=== PATIENT | female | born 1950 | race Caucasian/White ===

== ENCOUNTER → 2016-06-30 | Outpatient (CLI) | payer MEDICARE, MEDICAID ==
[~2016-06-30] MED LIST: CELE20TA; CELE40TA OR; HYDR25TA6; HYDR25TA6 OR; KLON1TAB OR; TRAZ50TA OR; XANA0.5T
[2016-06-30 13:46] LABS: ALBUMIN 3.3 GM/DL (3.2-5.2); ALBUMIN/GLOBULIN RATIO 0.79 (1.00-1.93); BILIRUBIN,TOTAL 0.3 MG/DL (0.2-1.0); CALCIUM LEVEL 9.5 MG/DL (8.8-10.2); CREATININE FOR GFR 1.47 MG/DL (0.55-1.02); FREE T4 0.9 NG/DL (0.76-1.46); POTASSIUM SERUM 4.2 MEQ/L (3.5-5.1); TOTAL PROTEIN 7.5 GM/DL (6.4-8.2)
== END | disposition home or self-care (01) ==
LOC: M WUC 09:24
PROVIDERS: ATTEND Physician Assistant Medical
DX: E78.5 Hyperlipidemia, unspecified (principal); R31.29 Other microscopic hematuria

== ENCOUNTER → 2016-09-02 | Outpatient (CLI) | payer MEDICARE, MEDICAID ==
--- NOTE | 2016-09-02 15:14 | REP ---
Clinical: Left lower extremity pain and swelling . Technique: Humphreys scale and color Doppler evaluation using linear high frequency transducer. Findings: Ultrasound examination of the left lower extremity deep venous structures from the common femoral vein to the popliteal vein demonstrates normal compressibility flow and wave patterns in response to respiration and augmentation. There is no evidence for deep venous thrombosis. Impression: No evidence for deep venous thrombosis. Signed by Mo Mcmahon MD 09/02/2016 03:05 P
== END ==
LOC: M RAD 14:31
PROVIDERS: ATTEND Physician Assistant Medical
DX: R60.0 Localized edema (principal)
CPT/HCPCS: 83880; 85379; 93971; G0463

== ENCOUNTER → 2016-09-02 | Outpatient (REF) | payer MEDICARE, OTHER | LOC: M SFHCPLAZ 13:32 | PROVIDERS: ATTEND Physician Assistant Medical | DX: R60.0 Localized edema (principal); E03.9 Hypothyroidism, unspecified; Z79.899 Other long term (current) drug therapy ==

== ENCOUNTER → 2016-09-09 | Outpatient (CLI) | payer MEDICARE, MEDICAID ==
[2016-09-09 19:45] LABS: CALCIUM LEVEL 10.6 MG/DL (8.8-10.2); CREATININE FOR GFR 1.34 MG/DL (0.55-1.02); FREE T4 1.07 NG/DL (0.76-1.46); GLOMERULAR FILTRATION RATE 42.3 (>45); POTASSIUM SERUM 4.5 MEQ/L (3.5-5.1)
== END ==
LOC: M WUC 16:16
PROVIDERS: ATTEND Physician Assistant Medical
DX: N18.3 Chronic kidney disease, stage 3 (moderate) (principal); E03.9 Hypothyroidism, unspecified

== ENCOUNTER → 2016-09-23 | Outpatient (CLI) | payer MEDICARE, MEDICAID ==
[~2016-09-23] MED LIST changes: +ISOVUE-370 76% 100ML VIAL (Q9967) As Ordered ONE
--- NOTE | 2016-09-23 16:30 | REP ---
CT CHEST WITH CONTRAST: REASON: Followup pulmonary nodule. COMPARISON: 01/21/2016 which showed a 6 mm sized pulmonary nodule on the superior segment of the right lower lobe. CONTRAST UTILIZED: 100 mL Isovue-370. The mediastinum and pulmonary sheyla are unchanged. The thoracic aorta is unchanged. There are no pleural or pericardiac effusions. The imaged upper abdomen is unchanged. Note is again made of cholelithiasis. There is an aortic stent graft partially imaged unchanged. Bone window technique throughout the exam shows no change in the osseous structures. Evaluation of the lung ness shows an unchanged nodule in the superior segment of the right lower lobe. To me this nodule measures 8 mm as it did measure 8 mm by my measurement on the last exam. There are no new abnormal nodules, masses or opacities. IMPRESSION: Stable CT findings as described above. According to the revised Fleischner's society criteria this lesion can now be down characterized to a category 3 lesion which requires a one year followup CT. Other findings as described above. Signed by Hector Luu DO 09/24/2016 12:04 P
== END ==
LOC: M RAD 14:56
PROVIDERS: ATTEND Physician Assistant Medical
DX: R91.1 Solitary pulmonary nodule (principal)
CPT/HCPCS: 71260; Q9967

== ENCOUNTER → 2016-10-08 | Outpatient (CLI) | payer MEDICARE, MEDICAID ==
[~2016-10-08] MED LIST changes: -ISOVUE-370 76% 100ML VIAL (Q9967) As Ordered ONE
[2016-10-08 13:54] LABS: CALCIUM LEVEL 9.5 MG/DL (8.8-10.2); CREATININE FOR GFR 1.39 MG/DL (0.55-1.02); FREE T4 1.13 NG/DL (0.76-1.46); GLOMERULAR FILTRATION RATE 40.5 (>45)
== END ==
LOC: M WUC 08:25
PROVIDERS: ATTEND Physician Assistant Medical
DX: E03.9 Hypothyroidism, unspecified (principal); I12.9 Hypertensive chronic kidney disease with stage 1 through stage 4 chronic kidney disease, or unspecified chronic kidney disease; N18.3 Chronic kidney disease, stage 3 (moderate)

== ENCOUNTER → 2016-12-22 | Outpatient (CLI) | payer MEDICARE, MEDICAID, OTHER ==
[~2016-12-22] MED LIST changes: +ATEN25TA PO; +BUPR150T3 PO; +CELE40TA PO; +FENO48TA2 PO; +HYDR10TAB PO; +KLON1TAB PO; +PARO30TA PO; +PRAV40TA2 PO; +SERO50TA PO; +VITA100067 PO
--- NOTE | 2016-12-22 15:47 | REP ---
RIGHT HAND, FOUR VIEWS: HISTORY: Pain. There is no acute fracture or dislocation. There is narrowing of the first carpometacarpal joint space with associated osteophyte formation. Calcified densities are present medial to the distal interphalangeal joint space of the second digit. This represents ligamentous or tendon calcification. A small osteophyte is present along the medial aspect of the head of the proximal phalangeal of the third digit. IMPRESSION: Degenerative change as described above. Signed by Tobi Nichole MD 12/22/2016 03:49 P
== END ==
LOC: M WUC 13:59
PROVIDERS: ATTEND Physician Assistant Medical
DX: M19.041 Primary osteoarthritis, right hand (principal)

== ENCOUNTER 2017-01-09 17:45 | Emergency (ER) | payer MEDICARE, MEDICAID ==
[~2017-01-09] VITALS: Ht 167.6 cm; Wt 91.4 kg
[~2017-01-09 17:45] MED LIST changes: -ATEN25TA PO; -BUPR150T3 PO; -CELE40TA PO; -FENO48TA2 PO; -HYDR10TAB PO; -KLON1TAB PO; -PARO30TA PO; -PRAV40TA2 PO; -SERO50TA PO; -VITA100067 PO
[2017-01-09] MEDS ORDERED: VITA100067 PO (18:11)
[2017-01-09] MEDS ORDERED: HYDR10TAB PO (18:11)
[2017-01-09] MEDS ORDERED: KLON1TAB PO (18:11)
[2017-01-09] MEDS ORDERED: SERO50TA PO (18:11)
[2017-01-09] MEDS ORDERED: BUPR150T3 PO (18:11)
[2017-01-09] MEDS ORDERED: PRAV40TA2 PO (18:11)
[2017-01-09] MEDS ORDERED: FENO48TA2 PO (18:11)
[2017-01-09] MEDS ORDERED: CELE40TA PO (18:11)
[2017-01-09] MEDS ORDERED: ATEN25TA PO (18:11)
[2017-01-09] MEDS ORDERED: PARO30TA PO (18:11)
--- NOTE | 2017-01-09 20:40 | REPUSA ---
CLINICAL HISTORY: Fall. TECHNIQUE: Multiple axial CT images were obtained through the brain without IV contrast material. COMMENTS: There is normal configuration of sella turcica. There are no intra or extra-axial collections. There is no mass effect or midline shift. There is no evidence of hematoma formation. No hydrocephalus is p resent. The ventricles are symmetrical. No abnormal calcifications are present. There is diffuse age-appropriate cerebellar and cerebral atrophy with proportionally dilated ventricl es and cortical sulci. There are bilateral periventricular and subcortical white matter hypolucencies compatible with mild c hronic microvascular disease. Otherwise, no significant focal abnormalities are seen either in the posterior fossa or supratentoria l compartment. IMPRESSION: 1. Age-appropriate cerebellar and cerebral atrophy. 2. Mild chronic microvascular disease. 3. No evidence of acute intracranial pathology. Thank you for your kind referral of this patient.
--- NOTE | 2017-01-09 21:10 | REPUSA ---
CLINICAL HISTORY: Fall. TECHNIQUE: Multiple axial images were obtained through the cervical spine. Images were also reconstru cted in coronal and sagittal planes. The study was performed without IV contrast. COMMENTS: There is no fracture. Grade 1 anterolisthesis of C3 over C4 is seen. The paraspinal soft tissues are unremarkable. There are no lytic or blastic lesions. Straightening of cervical lordosis is seen, suggesting muscular spasm. There is evidence of severe mu ltilevel disk disease, demonstrated by osteophytosis and endplate sclerosis. At C5-C6 and C6-C7, th ere is broad-based disc osteophyte complex producing moderate to severe bilateral foraminal and canal stenosis IMPRESSION: 1. No fracture. Grade 1 anterolisthesis of C3 over C4 2. Straightening of cervical lordosis is seen, suggesting muscular spasm. 3. Multilevel spondylosis. At C5-C6 and C6-C7, there is broad-based disc osteophyte complex produci ng moderate to severe bilateral foraminal and canal stenosis Thank you for your kind referral of this patient.
--- NOTE | 2017-01-09 21:10 | REPUSA ---
HISTORY: Fall. TECHNIQUE: Multiple thin section helically-acquired axially-displayed and helically acquired coronall y displayed computed tomographic images of the face are obtained from the mandible through the fronta l sinuses, with images obtained at soft tissue and bone window. 2D reformatted images were performed. FINDINGS: Normal bony mineralization. No fractures. Degenerative changes are noted at both TM joints. Normal orbits. Normal, clear paranasal sinuses. Normal oral and nasal cavities. Normal infratemporal fossa and deep parapharyngeal spaces with normal muscles of mastication. Normal parotid and submandibular glands. IMPRESSION: No fracture or another acute pathology Thank you for your kind referral of this patient
[2017-01-09 21:37] VITALS: BP 161/81
--- NOTE | 2017-01-12 12:23 | ED PDOC ---
Post-Departure Follow-Up monique alexis faxed formal report of ct c spine for fu Erica Schulz MD Jan 12, 2017 12:23
== END 2017-01-09 21:44 | disposition home or self-care (01) ==
LOC: M ED 17:45
DX: S00.83XA Contusion of other part of head, initial encounter (principal); S00.31XA Abrasion of nose, initial encounter; W01.10XA Fall on same level from slipping, tripping and stumbling with subsequent striking against unspecified object, initial encounter; Y92.019 Unspecified place in single-family (private) house as the place of occurrence of the external cause; Y93.89 Activity, other specified; Y99.8 Other external cause status; M43.12 Spondylolisthesis, cervical region; M47.22 Other spondylosis with radiculopathy, cervical region; I12.9 Hypertensive chronic kidney disease with stage 1 through stage 4 chronic kidney disease, or unspecified chronic kidney disease; N18.3 Chronic kidney disease, stage 3 (moderate); E78.00 Pure hypercholesterolemia, unspecified; F17.200 Nicotine dependence, unspecified, uncomplicated; Z79.899 Other long term (current) drug therapy; Z88.0 Allergy status to penicillin; Z88.8 Allergy status to other drugs, medicaments and biological substances; Z91.040 Latex allergy status

== ENCOUNTER → 2017-02-17 | Outpatient (CLI) | payer MEDICARE, MEDICAID ==
[~2017-02-17] MED LIST changes: +ATEN25TA PO; +BUPR150T3 PO; +CELE40TA PO; +FENO48TA2 PO; +HYDR10TAB PO; +KLON1TAB PO; +PARO30TA PO; +PRAV40TA2 PO; +SERO50TA PO; +VITA100067 PO
[2017-02-17 18:10] LABS: ALBUMIN 3.5 GM/DL (3.2-5.2); ALBUMIN/GLOBULIN RATIO 0.9 (1.00-1.93); BILIRUBIN,TOTAL 0.3 MG/DL (0.2-1.0); CALCIUM LEVEL 10.3 MG/DL (8.8-10.2); CREATININE FOR GFR 1.3 MG/DL (0.55-1.02); GLOMERULAR FILTRATION RATE 43.8 (>45); POTASSIUM SERUM 4.8 MEQ/L (3.5-5.1); TOTAL PROTEIN 7.4 GM/DL (6.4-8.2)
[2017-02-17 18:57] LABS: BASO % 0.4 % (0.0-1.0); EOS # 0.1 K/mm3 (0.0-0.50); EOS % 2.2 % (0.0-3.0); LYMPH # 1.3 K/mm3 (1.5-4.5); LYMPH % 21.5 % (24.0-44.0); MEAN CORPUSCULAR HGB CONC 32.8 g/dl (32.0-36.5); MEAN CORPUSCULAR VOLUME 97.5 fl (80.0-96.0); MONO # 0.4 K/mm3 (0.0-0.8); MONO % 7.1 % (0.0-5.0); NEUTROPHILS # 3.8 K/mm3 (1.8-7.7); NEUTROPHILS % 67.2 % (36.0-66.0); RED CELL DISTRIBUTION WIDTH 12.9 % (11.5-14.5); WHITE BLOOD COUNT 5.7 K/mm3 (4.0-10.0)
== END ==
LOC: M WUC 12:34
PROVIDERS: ATTEND Physician Assistant
DX: F33.1 Major depressive disorder, recurrent, moderate (principal); Z79.899 Other long term (current) drug therapy

== ENCOUNTER → 2017-02-22 | Outpatient (CLI) | payer MEDICARE ==
[2017-02-22 17:38] LABS: BASO % 0.5 % (0.0-1.0); EOS # 0.1 K/mm3 (0.0-0.50); EOS % 1.7 % (0.0-3.0); LARGE UNSTAINED CELL # 0.1 K/mm3 (0.0-0.4); LARGE UNSTAINED CELL % 1.3 % (0.0-4.0); LYMPH # 1.6 K/mm3 (1.5-4.5); LYMPH % 22.7 % (24.0-44.0); MEAN CORPUSCULAR HEMOGLOBIN 32.3 pg (27.0-33.0); MEAN CORPUSCULAR HGB CONC 33.7 g/dl (32.0-36.5); MEAN CORPUSCULAR VOLUME 95.6 fl (80.0-96.0); MONO # 0.6 K/mm3 (0.0-0.8); MONO % 7.7 % (0.0-5.0); NEUTROPHILS # 4.8 K/mm3 (1.8-7.7); PLATELET COUNT, AUTOMATED 335 k/mm3 (150-450); RED CELL DISTRIBUTION WIDTH 12.6 % (11.5-14.5); WHITE BLOOD COUNT 7.2 K/mm3 (4.0-10.0)
[2017-02-22 17:44] LABS: INR 0.88
[2017-02-22 19:23] LABS: ALBUMIN 3.5 GM/DL (3.2-5.2); ALBUMIN/GLOBULIN RATIO 0.92 (1.00-1.93); BILIRUBIN,TOTAL 0.3 MG/DL (0.2-1.0); CALCIUM LEVEL 10.3 MG/DL (8.8-10.2); CREATININE FOR GFR 1.32 MG/DL (0.55-1.02); FREE T4 0.9 NG/DL (0.76-1.46); TOTAL PROTEIN 7.3 GM/DL (6.4-8.2)
== END ==
LOC: M WUC 14:36
PROVIDERS: ATTEND Physician Assistant Medical
DX: I12.9 Hypertensive chronic kidney disease with stage 1 through stage 4 chronic kidney disease, or unspecified chronic kidney disease (principal); N18.3 Chronic kidney disease, stage 3 (moderate); E03.9 Hypothyroidism, unspecified; T14.8 Other injury of unspecified body region

== ENCOUNTER → 2017-02-24 | Outpatient (CLI) | payer MEDICARE, MEDICAID ==
--- NOTE | 2017-02-24 16:01 | REP ---
Lumbar spine five views: There are no comparisons. Vertebral body heights, interspacing alignment are normal. There is facet osteoarthritis. The pedicles are unremarkable. There is no spondylolysis or spondylolisthesis. Sacroiliac articulations are unremarkable. There is an aortobi-iliac endovascular stent. Impression: Facet osteoarthritis. Aortobi-iliac endovascular stent. Signed by Anuj Flowers MD 02/24/2017 03:52 P
== END ==
LOC: M WUC 14:45
PROVIDERS: ATTEND Physician Assistant Medical
DX: M51.36 Other intervertebral disc degeneration, lumbar region (principal); Z95.828 Presence of other vascular implants and grafts
CPT/HCPCS: 72110; G0463

== ENCOUNTER → 2017-03-03 | Outpatient (CLI) | payer MEDICARE, MEDICAID ==
--- NOTE | 2017-03-04 08:56 | DEXA ---
AP SPINE L1 - L4 1.220 0.2 1.8 LT FEMUR TOTAL 1.063 0.4 1.7 RT FEMUR TOTAL 1.106 0.8 2.0 TOTAL BODY TOTAL OTHER DUAL FEMUR FRAX* ASSESSMENT Risk factors: Not performed. 10 year probability of fracture Major osteoporotic fracture % Hip fracture % COMMENTS: Normal bone densitometry of the spine and hips. FOLLOW-UP: Recommendation for the next bone density exam: 5 years. SHELLYD
== END ==
LOC: M WHC 10:51
PROVIDERS: ATTEND Physician Assistant Medical
DX: Z13.820 Encounter for screening for osteoporosis (principal)

== ENCOUNTER → 2017-04-10 | Outpatient (REF) | payer MEDICARE, MEDICAID ==
[2017-04-10 17:44] LABS: CALCIUM LEVEL 10.1 MG/DL (8.8-10.2); CREATININE FOR GFR 1.33 MG/DL (0.55-1.02); GLOMERULAR FILTRATION RATE 42.5 (>45); POTASSIUM SERUM 4.4 MEQ/L (3.5-5.1)
== END ==
LOC: M SFHCPLAZ 15:11
PROVIDERS: ATTEND Physician Assistant Medical
DX: N18.3 Chronic kidney disease, stage 3 (moderate) (principal); Z23 Encounter for immunization
CPT/HCPCS: 36415; 80048; 90662; G0008

== ENCOUNTER → 2017-05-20 | Outpatient (CLI) | payer MEDICARE, MEDICAID ==
--- NOTE | 2017-05-20 09:45 | REP ---
Abdominal aorta ultrasound for aneurysm: Abdominal aorta ultrasound: Abdominal Aortic Measurements are as follows: Proximal 2.6 cm AP 2.8 cm TRV Renal Artery Level 2.6 cm AP 2.5 cm TRV Mid Aorta 4.6 cm AP 3.6 cm TRV Distal Aorta 4.3 cm AP 4.2 cm TRV R Iliac Artery 1.2 cm AP 1.3 cm TRV L Iliac Artery 1.1 cm AP 1.3 cm TRV There is abdominal aortic aneurysm maximally measuring 4.6 cm in diameter. There is an endovascular stent. The stent lumen measures 2.1 x 2.3 cm Upon review of a CT of the abdomen pelvis day 06/16/2013. The aneurysm was present at that time. Re measuring the aneurysm on the CT indicates that the aneurysm measured 5.0 x 5.2 cm on the comparison CT. I note that the the patient had a CT on 05/19/2016, however the films and report from that CT are not available on the PACS archive, for reasons known to this examiner. Signed by Anuj Flowers MD 05/20/2017 09:36 A
== END ==
LOC: M RAD 08:17
PROVIDERS: ATTEND Surgery
DX: I71.4 Abdominal aortic aneurysm, without rupture (principal)

== ENCOUNTER 2017-06-09 18:01 | Inpatient (IN) | payer MEDICARE, MEDICAID ==
[2017-06-09 19:16] LABS: HEMOGLOBIN 14.9 g/dl (12.0-16.0); MEAN CORPUSCULAR HEMOGLOBIN 30.9 pg (27.0-33.0); MEAN CORPUSCULAR HGB CONC 33.1 g/dl (32.0-36.5); MEAN CORPUSCULAR VOLUME 93.4 fl (80.0-96.0); PLATELET COUNT, AUTOMATED 423 10^3/uL (150-450); RED BLOOD COUNT 4.82 10^6/uL (4.00-5.40); RED CELL DISTRIBUTION WIDTH 12.7 % (11.5-14.5); WHITE BLOOD COUNT 7.9 10^3/uL (4.0-10.0)
[2017-06-09 19:36] LABS: ALBUMIN 4.2 GM/DL (3.2-5.2); ALBUMIN/GLOBULIN RATIO 0.93 (1.00-1.93); ALKALINE PHOSPHATASE 51 U/L (45-117); ALT/SGPT 27 U/L (12-78); ANION GAP 7 MEQ/L (8-16); AST/SGOT 26 U/L (7-37); BILIRUBIN,DIRECT 0.2 MG/DL (0.0-0.2); BILIRUBIN,TOTAL 0.4 MG/DL (0.2-1.0); BLOOD UREA NITROGEN 27 MG/DL (7-18); CALCIUM LEVEL 10.4 MG/DL (8.8-10.2); CARBON DIOXIDE LEVEL 29 MEQ/L (21-32); CHLORIDE LEVEL 102 MEQ/L (98-107); CREATININE FOR GFR 1.53 MG/DL (0.55-1.02); GLOMERULAR FILTRATION RATE 36.2 (>45); GLUCOSE, FASTING 104 MG/DL (80-110); POTASSIUM SERUM 4.6 MEQ/L (3.5-5.1); SODIUM LEVEL 138 MEQ/L (136-145); TOTAL PROTEIN 8.7 GM/DL (6.4-8.2)
[2017-06-09 19:55] LABS: AMPHETAMINES LEVEL URINE NEGATIVE (NEGATIVE); BARBITURATES URINE NEGATIVE (NEGATIVE); BENZODIAZEPINES URINE POSITIVE (NEGATIVE); CANNABINOIDS URINE NEGATIVE (NEGATIVE); COCAINE METABOLITE URINE NEGATIVE (NEGATIVE); METHADONE URINE NEGATIVE (NEGATIVE); OPIATES URINE NEGATIVE (NEGATIVE); PHENCYCLIDINE URINE NEGATIVE (NEGATIVE)
[2017-06-09 20:25] LABS: ETHYL ALCOHOL (ETHANOL) < 0.003 % (0.000-0.010)
[2017-06-09 20:26] LABS: ACETAMINOPHEN LEVEL < 2.0 UG/ML (10.0-30.0)
[2017-06-09] MEDS: **hydrALAZINE** 10 MG TAB PO (21:00)
[2017-06-09] MEDS: QUEtiapine FUMARATE 200 MG TAB PO (21:00)
[2017-06-09] MEDS: PRAVASTATIN 20 MG TAB PO (21:00)
[2017-06-09] MEDS: FENOFIBRATE 145 MG TAB (TRICOR) PO (21:00)
[2017-06-10] MEDS ORDERED: clonazePAM 0.5 MG TAB PO (00:15)
[2017-06-10] MEDS: LEVOTHYROXINE 25MCG TABLET (0.025MG) PO (06:29)
[2017-06-10] MEDS: ACETAMINOPHEN TAB 650MG DOSE (2X325MG) PO (06:30)
[2017-06-10] MEDS: buPROPion **XL** TABLET 150MG (WELLBUTRIN XL) PO (08:31)
[2017-06-10] MEDS: LISINOPRIL 5 MG TAB PO (08:31)
[2017-06-10] MEDS: SERTRALINE HCL 50 MG TAB PO (08:31)
[2017-06-10] MEDS: ATENOLOL 25 MG TAB PO (08:31)
[2017-06-10] MEDS: **hydrALAZINE** 10 MG TAB PO ×2 (08:31→21:11)
[2017-06-10] MEDS: FENOFIBRATE 145 MG TAB (TRICOR) PO (21:10)
[2017-06-10] MEDS: QUEtiapine FUMARATE 200 MG TAB PO (21:11)
[2017-06-10] MEDS: PRAVASTATIN 20 MG TAB PO (21:11)
[2017-06-11] MEDS: LEVOTHYROXINE 25MCG TABLET (0.025MG) PO (06:04)
[2017-06-11] MEDS: ATENOLOL 25 MG TAB PO (08:39)
[2017-06-11] MEDS: buPROPion **XL** TABLET 150MG (WELLBUTRIN XL) PO (08:39)
[2017-06-11] MEDS: **hydrALAZINE** 10 MG TAB PO ×2 (08:39→21:32)
[2017-06-11] MEDS: LISINOPRIL 5 MG TAB PO (08:40)
[2017-06-11] MEDS: SERTRALINE HCL 50 MG TAB PO ×2 (08:40→21:32)
[2017-06-11 09:13] LABS: ANION GAP 5 MEQ/L (8-16); BLOOD UREA NITROGEN 38 MG/DL (7-18); CALCIUM LEVEL 10.4 MG/DL (8.8-10.2); CARBON DIOXIDE LEVEL 31 MEQ/L (21-32); CHLORIDE LEVEL 105 MEQ/L (98-107); CREATININE FOR GFR 1.52 MG/DL (0.55-1.02); GLOMERULAR FILTRATION RATE 36.4 (>45); GLUCOSE, FASTING 127 MG/DL (80-110); POTASSIUM SERUM 4.5 MEQ/L (3.5-5.1); SODIUM LEVEL 141 MEQ/L (136-145)
[2017-06-11] MEDS: FENOFIBRATE 145 MG TAB (TRICOR) PO (21:31)
[2017-06-11] MEDS: QUEtiapine FUMARATE 200 MG TAB PO (21:32)
[2017-06-11] MEDS: PRAVASTATIN 20 MG TAB PO (21:32)
[2017-06-12] MEDS: LEVOTHYROXINE 25MCG TABLET (0.025MG) PO (06:08)
[2017-06-12] MEDS: **hydrALAZINE** 10 MG TAB PO ×2 (08:16→21:05)
[2017-06-12] MEDS: buPROPion **XL** TABLET 150MG (WELLBUTRIN XL) PO (08:17)
[2017-06-12] MEDS: ATENOLOL 25 MG TAB PO (08:17)
[2017-06-12] MEDS: LISINOPRIL 5 MG TAB PO (08:17)
[2017-06-12] MEDS: MOM 30ML SUSPENSION UDC PO (08:49)
[2017-06-12] MEDS: QUEtiapine FUMARATE 200 MG TAB PO (21:05)
[2017-06-12] MEDS: PRAVASTATIN 20 MG TAB PO (21:05)
[2017-06-12] MEDS: FENOFIBRATE 145 MG TAB (TRICOR) PO (21:05)
[2017-06-12] MEDS: SERTRALINE HCL 50 MG TAB PO (21:06)
[2017-06-12] MEDS: ACETAMINOPHEN TAB 650MG DOSE (2X325MG) PO (21:07)
[2017-06-12] MEDS: FLUTICASONE PROP 0.05% NASAL SPRAY 16 GM (FLONASE) (21:15)
[2017-06-13] MEDS: LEVOTHYROXINE 25MCG TABLET (0.025MG) PO (05:54)
[2017-06-13] MEDS: LISINOPRIL 5 MG TAB PO (08:06)
[2017-06-13] MEDS: buPROPion **XL** TABLET 150MG (WELLBUTRIN XL) PO (08:06)
[2017-06-13] MEDS: ATENOLOL 25 MG TAB PO (08:06)
[2017-06-13] MEDS: **hydrALAZINE** 10 MG TAB PO ×2 (08:07→20:58)
[2017-06-13] MEDS: MAALOX 30 ML SUSP *UDC PO (15:58)
[2017-06-13] MEDS: SERTRALINE HCL 50 MG TAB PO (20:58)
[2017-06-13] MEDS: FLUTICASONE PROP 0.05% NASAL SPRAY 16 GM (FLONASE) (20:58)
[2017-06-13] MEDS: FENOFIBRATE 145 MG TAB (TRICOR) PO (20:59)
[2017-06-13] MEDS: PRAVASTATIN 20 MG TAB PO (20:59)
[2017-06-13] MEDS: QUEtiapine FUMARATE 50 MG TAB PO (20:59)
[2017-06-13] MEDS: ACETAMINOPHEN TAB 650MG DOSE (2X325MG) PO (21:02)
[2017-06-14] MEDS: LEVOTHYROXINE 25MCG TABLET (0.025MG) PO (05:46)
[2017-06-14] MEDS: ATENOLOL 25 MG TAB PO (08:09)
[2017-06-14] MEDS: buPROPion **XL** TABLET 150MG (WELLBUTRIN XL) PO (08:09)
[2017-06-14] MEDS: LISINOPRIL 5 MG TAB PO (08:10)
[2017-06-14] MEDS: **hydrALAZINE** 10 MG TAB PO ×2 (08:11→20:26)
[2017-06-14] MEDS: FENOFIBRATE 145 MG TAB (TRICOR) PO (20:25)
[2017-06-14] MEDS: PRAVASTATIN 20 MG TAB PO (20:26)
[2017-06-14] MEDS: SERTRALINE HCL 50 MG TAB PO (20:26)
[2017-06-14] MEDS: QUEtiapine FUMARATE 50 MG TAB PO (20:27)
[2017-06-14] MEDS: traZODone 50 MG TAB PO (20:27)
[2017-06-15] MEDS: LEVOTHYROXINE 25MCG TABLET (0.025MG) PO (06:10)
[2017-06-15] MEDS: clonazePAM 0.5 MG TAB PO (08:09)
[2017-06-15] MEDS: ATENOLOL 25 MG TAB PO (08:09)
[2017-06-15] MEDS: LISINOPRIL 5 MG TAB PO (08:09)
[2017-06-15] MEDS: buPROPion **XL** TABLET 150MG (WELLBUTRIN XL) PO (08:09)
[2017-06-15] MEDS: **hydrALAZINE** 10 MG TAB PO ×2 (08:09→20:22)
[2017-06-15] MEDS: SERTRALINE HCL 50 MG TAB PO (20:19)
[2017-06-15] MEDS: QUEtiapine FUMARATE 50 MG TAB PO (20:19)
[2017-06-15] MEDS: FENOFIBRATE 145 MG TAB (TRICOR) PO (20:20)
[2017-06-15] MEDS: PRAVASTATIN 20 MG TAB PO (20:20)
[2017-06-16] MEDS: LEVOTHYROXINE 25MCG TABLET (0.025MG) PO (06:17)
[2017-06-16] MEDS: buPROPion **XL** TABLET 150MG (WELLBUTRIN XL) PO (08:03)
[2017-06-16] MEDS: LISINOPRIL 5 MG TAB PO (08:03)
[2017-06-16] MEDS: **hydrALAZINE** 10 MG TAB PO ×2 (08:03→20:38)
[2017-06-16] MEDS: ATENOLOL 25 MG TAB PO (08:03)
[2017-06-16] MEDS: clonazePAM 0.5 MG TAB PO ×2 (11:32→20:37)
[2017-06-16] MEDS: FENOFIBRATE 145 MG TAB (TRICOR) PO (20:37)
[2017-06-16] MEDS: SERTRALINE HCL 50 MG TAB PO (20:37)
[2017-06-16] MEDS: QUEtiapine FUMARATE 50 MG TAB PO (20:37)
[2017-06-16] MEDS: traZODone 50 MG TAB PO (20:37)
[2017-06-16] MEDS: PRAVASTATIN 20 MG TAB PO (20:38)
[2017-06-17] MEDS: LEVOTHYROXINE 25MCG TABLET (0.025MG) PO (06:34)
[2017-06-17] MEDS: buPROPion **XL** TABLET 150MG (WELLBUTRIN XL) PO (08:17)
[2017-06-17] MEDS: LISINOPRIL 5 MG TAB PO (08:17)
[2017-06-17] MEDS: **hydrALAZINE** 10 MG TAB PO ×2 (08:17→20:34)
[2017-06-17] MEDS: clonazePAM 0.5 MG TAB PO ×2 (08:17→20:33)
[2017-06-17] MEDS: ATENOLOL 25 MG TAB PO (08:17)
[2017-06-17] MEDS: traZODone 50 MG TAB PO (20:33)
[2017-06-17] MEDS: PRAVASTATIN 20 MG TAB PO (20:33)
[2017-06-17] MEDS: FENOFIBRATE 145 MG TAB (TRICOR) PO (20:33)
[2017-06-17] MEDS: SERTRALINE HCL 50 MG TAB PO (20:33)
[2017-06-17] MEDS: QUEtiapine FUMARATE 50 MG TAB PO (20:34)
[2017-06-18] MEDS: LEVOTHYROXINE 25MCG TABLET (0.025MG) PO (05:48)
[2017-06-18] MEDS: buPROPion **XL** TABLET 150MG (WELLBUTRIN XL) PO (08:25)
[2017-06-18] MEDS: clonazePAM 0.5 MG TAB PO (08:26)
[2017-06-18] MEDS: LISINOPRIL 5 MG TAB PO (08:26)
[2017-06-18] MEDS: **hydrALAZINE** 10 MG TAB PO (08:26)
[2017-06-18] MEDS: ATENOLOL 25 MG TAB PO (08:26)
== END 2017-06-18 11:46 | disposition home or self-care (01) | DRG 881 ==
LOC: M ED 18:01 → M PSY 22:00
DX: F32.9 Major depressive disorder, single episode, unspecified (principal); F41.1 Generalized anxiety disorder; I12.9 Hypertensive chronic kidney disease with stage 1 through stage 4 chronic kidney disease, or unspecified chronic kidney disease; E78.5 Hyperlipidemia, unspecified; G47.00 Insomnia, unspecified; J30.9 Allergic rhinitis, unspecified; E03.9 Hypothyroidism, unspecified; N18.3 Chronic kidney disease, stage 3 (moderate); Z79.899 Other long term (current) drug therapy; Z88.0 Allergy status to penicillin; Z88.8 Allergy status to other drugs, medicaments and biological substances; Z91.040 Latex allergy status; Z63.4 Disappearance and death of family member

== ENCOUNTER → 2017-06-25 | Outpatient (REF) | payer MEDICARE, MEDICAID ==
[2017-06-25 16:43] LABS: ALBUMIN 3.8 GM/DL (3.2-5.2); ALBUMIN/GLOBULIN RATIO 0.95 (1.00-1.93); ALKALINE PHOSPHATASE 47 U/L (45-117); ALT/SGPT 26 U/L (12-78); ANION GAP 6 MEQ/L (8-16); AST/SGOT 26 U/L (7-37); BILIRUBIN,TOTAL 0.3 MG/DL (0.2-1.0); BLOOD UREA NITROGEN 20 MG/DL (7-18); CALCIUM LEVEL 10.1 MG/DL (8.8-10.2); CARBON DIOXIDE LEVEL 29 MEQ/L (21-32); CHLORIDE LEVEL 105 MEQ/L (98-107); CHOLESTEROL LEVEL 174 MG/DL (<200); CHOLESTEROL RISK RATIO 3.346 (<5); CPK CREATINE PHOSPHOKINASE 78 U/L (26-192); CREATININE FOR GFR 1.42 MG/DL (0.55-1.02); FREE T4 1.12 NG/DL (0.76-1.46); GLOMERULAR FILTRATION RATE 39.4 (>45); GLUCOSE, FASTING 81 MG/DL (80-110); HDL CHOLESTEROL 52 MG/DL (>40); LDL CHOLESTEROL 100.8 MG/DL (<100); NON-HDL-C 122 MG/DL; POTASSIUM SERUM 4.6 MEQ/L (3.5-5.1); SODIUM LEVEL 140 MEQ/L (136-145); TOTAL PROTEIN 7.8 GM/DL (6.4-8.2); TRIGLYCERIDES LEVEL 106 MG/DL (<150)
[2017-06-25 17:00] LABS: BASO % 0.5 % (0.0-1.0); EOS # 0.2 10^3/uL (0.0-0.50); EOS % 2.1 % (0.0-3.0); HEMATOCRIT 40.6 % (36.0-47.0); HEMOGLOBIN 13.2 g/dl (12.0-16.0); IMMATURE GRANULOCYTE % 0.3 % (0-0); LYMPH # 1.8 10^3/uL (1.5-4.5); LYMPH % 23.6 % (24.0-44.0); MEAN CORPUSCULAR HGB CONC 32.5 g/dl (32.0-36.5); MEAN CORPUSCULAR VOLUME 95.3 fl (80.0-96.0); MONO # 0.7 10^3/uL (0.0-0.8); MONO % 9.1 % (0.0-5.0); NEUTROPHILS % 64.4 % (36.0-66.0); PLATELET COUNT, AUTOMATED 336 10^3/uL (150-450); RED BLOOD COUNT 4.26 10^6/uL (4.00-5.40); RED CELL DISTRIBUTION WIDTH 12.7 % (11.5-14.5); WHITE BLOOD COUNT 7.7 10^3/uL (4.0-10.0)
== END ==
LOC: M SFHCPLAZ 14:06
DX: I10 Essential (primary) hypertension (principal); E78.5 Hyperlipidemia, unspecified; E03.9 Hypothyroidism, unspecified
CPT/HCPCS: 82550

== ENCOUNTER → 2017-08-13 | Outpatient (CLI) | payer MEDICARE, MEDICAID | LOC: M WUC 15:06 | DX: M25.511 Pain in right shoulder (principal) | CPT/HCPCS: 73000 ==

== ENCOUNTER → 2017-09-07 | Outpatient (CLI) | payer MEDICARE, MEDICAID ==
[2017-09-07 18:27] LABS: PROLACTIN 6.5 NG/ML
[2017-09-07 18:36] LABS: ESTIMATED AVERAGE GLUCOSE 108 MG/DL (60-110); HEMOGLOBIN A1c 5.4 %
[2017-09-07 18:39] LABS: BASO % 0.7 % (0.0-1.0); EOS # 0.2 10^3/uL (0.0-0.50); EOS % 2.8 % (0.0-3.0); HEMATOCRIT 40.9 % (36.0-47.0); IMMATURE GRANULOCYTE % 0.2 % (0-3.0); LYMPH # 1.1 10^3/uL (1.5-4.5); LYMPH % 19.6 % (24.0-44.0); MEAN CORPUSCULAR HEMOGLOBIN 29.4 pg (27.0-33.0); MEAN CORPUSCULAR HGB CONC 31.8 g/dl (32.0-36.5); MEAN CORPUSCULAR VOLUME 92.5 fl (80.0-96.0); MONO # 0.6 10^3/uL (0.0-0.8); MONO % 9.7 % (0.0-5.0); NEUTROPHILS # 3.9 10^3/uL (1.8-7.7); PLATELET COUNT, AUTOMATED 376 10^3/uL (150-450); RED BLOOD COUNT 4.42 10^6/uL (4.00-5.40); RED CELL DISTRIBUTION WIDTH 12.4 % (11.5-14.5); WHITE BLOOD COUNT 5.8 10^3/uL (4.0-10.0)
[2017-09-07 18:49] LABS: ALBUMIN 3.7 GM/DL (3.2-5.2); ALKALINE PHOSPHATASE 42 U/L (45-117); ALT/SGPT 22 U/L (12-78); ANION GAP 6 MEQ/L (8-16); AST/SGOT 22 U/L (7-37); BILIRUBIN,TOTAL 0.3 MG/DL (0.2-1.0); BLOOD UREA NITROGEN 23 MG/DL (7-18); CALCIUM LEVEL 10.7 MG/DL (8.8-10.2); CARBON DIOXIDE LEVEL 30 MEQ/L (21-32); CHLORIDE LEVEL 105 MEQ/L (98-107); CHOLESTEROL LEVEL 197 MG/DL (<200); CREATININE FOR GFR 1.61 MG/DL (0.55-1.30); GLOMERULAR FILTRATION RATE 34.1 (>45); GLUCOSE, FASTING 91 MG/DL (70-100); HDL CHOLESTEROL 49 MG/DL (>40); NON-HDL-C 148 MG/DL; POTASSIUM SERUM 5.1 MEQ/L (3.5-5.1); SODIUM LEVEL 141 MEQ/L (136-145); TOTAL PROTEIN 7.8 GM/DL (6.4-8.2); TRIGLYCERIDES LEVEL 145 MG/DL (<150)
== END ==
LOC: M WUC 11:16
DX: F33.1 Major depressive disorder, recurrent, moderate (principal)
CPT/HCPCS: 84146

== ENCOUNTER 2017-10-29 12:41 | Emergency (ER) | payer OTHER, MEDICARE, MEDICAID ==
[2017-10-29] MEDS: ACETAMINOPHEN 325 MG TAB PO (14:13)
[2017-10-29] MEDS: NS 1,000 ML IV (17:07)
[2017-10-29 17:27] LABS: BASO % 0.5 % (0.0-1.0); EOS # 0.2 10^3/uL (0.0-0.50); EOS % 2.4 % (0.0-3.0); HEMOGLOBIN 13.5 g/dl (12.0-15.5); IMMATURE GRANULOCYTE % 0.3 % (0-3.0); LYMPH # 1.7 10^3/uL (1.5-4.5); LYMPH % 22.5 % (24.0-44.0); MEAN CORPUSCULAR HEMOGLOBIN 29.1 pg (27.0-33.0); MEAN CORPUSCULAR HGB CONC 32.1 g/dl (32.0-36.5); MEAN CORPUSCULAR VOLUME 90.5 fl (80.0-96.0); MONO # 0.5 10^3/uL (0.0-0.8); NEUTROPHILS % 67.3 % (36.0-66.0); PLATELET COUNT, AUTOMATED 393 10^3/uL (150-450); RED BLOOD COUNT 4.64 10^6/uL (4.00-5.40); RED CELL DISTRIBUTION WIDTH 12.5 % (11.5-14.5); WHITE BLOOD COUNT 7.4 10^3/uL (4.0-10.0)
[2017-10-29 17:38] LABS: INR 0.96; PARTIAL THROMBOPLASTIN TIME 27.8 SECONDS (26.8-37.9); PROTHROMBIN TIME 12.9 SECONDS (12.4-14.5)
[2017-10-29 17:42] LABS: ANION GAP 5 MEQ/L (8-16); BLOOD UREA NITROGEN 37 MG/DL (7-18); CALCIUM LEVEL 10.9 MG/DL (8.8-10.2); CARBON DIOXIDE LEVEL 30 MEQ/L (21-32); CHLORIDE LEVEL 102 MEQ/L (98-107); CREATININE FOR GFR 1.82 MG/DL (0.55-1.30); GLOMERULAR FILTRATION RATE 29.6 (>45); GLUCOSE, FASTING 88 MG/DL (70-100); SODIUM LEVEL 137 MEQ/L (136-145)
[2017-10-29 17:50] LABS: POTASSIUM SERUM 5.5 MEQ/L (3.5-5.1)
== END 2017-10-29 19:44 | disposition home or self-care (01) ==
LOC: M ED 12:41
DX: S20.219A Contusion of unspecified front wall of thorax, initial encounter (principal); R91.1 Solitary pulmonary nodule; V47.5XXA Car driver injured in collision with fixed or stationary object in traffic accident, initial encounter; Y92.410 Unspecified street and highway as the place of occurrence of the external cause; I12.9 Hypertensive chronic kidney disease with stage 1 through stage 4 chronic kidney disease, or unspecified chronic kidney disease; E78.00 Pure hypercholesterolemia, unspecified; N18.3 Chronic kidney disease, stage 3 (moderate); E03.9 Hypothyroidism, unspecified; F41.9 Anxiety disorder, unspecified; F32.9 Major depressive disorder, single episode, unspecified; F17.200 Nicotine dependence, unspecified, uncomplicated; Z88.0 Allergy status to penicillin; Z88.8 Allergy status to other drugs, medicaments and biological substances; Z91.040 Latex allergy status; Z79.899 Other long term (current) drug therapy
CPT/HCPCS: 71120

== ENCOUNTER → 2017-11-16 | Outpatient (REF) | payer MEDICARE, MEDICAID ==
[2017-11-16 14:11] LABS: ALBUMIN 3.7 GM/DL (3.2-5.2); ALBUMIN/GLOBULIN RATIO 0.97 (1.00-1.93); ALKALINE PHOSPHATASE 42 U/L (45-117); ALT/SGPT 25 U/L (12-78); ANION GAP 6 MEQ/L (8-16); AST/SGOT 20 U/L (7-37); BILIRUBIN,TOTAL 0.3 MG/DL (0.2-1.0); BLOOD UREA NITROGEN 35 MG/DL (7-18); CALCIUM LEVEL 10.1 MG/DL (8.8-10.2); CARBON DIOXIDE LEVEL 29 MEQ/L (21-32); CHLORIDE LEVEL 106 MEQ/L (98-107); CREATININE FOR GFR 1.72 MG/DL (0.55-1.30); GLOMERULAR FILTRATION RATE 31.6 (>45); GLUCOSE, FASTING 95 MG/DL (70-100); POTASSIUM SERUM 4.6 MEQ/L (3.5-5.1); SODIUM LEVEL 141 MEQ/L (136-145); TOTAL PROTEIN 7.5 GM/DL (6.4-8.2)
== END ==
LOC: M SFHCPLAZ 10:47
DX: N18.3 Chronic kidney disease, stage 3 (moderate) (principal)
CPT/HCPCS: 80053

== ENCOUNTER → 2018-01-20 | Outpatient (REF) | payer MEDICARE, MEDICAID ==
[2018-01-20 16:52] LABS: BASO % 0.4 % (0.0-1.0); EOS # 0.1 10^3/uL (0.0-0.50); EOS % 1.5 % (0.0-3.0); HEMATOCRIT 42.2 % (36.0-47.0); HEMOGLOBIN 13.7 g/dl (12.0-15.5); IMMATURE GRANULOCYTE % 0.3 % (0-3.0); LYMPH # 1.7 10^3/uL (1.5-4.5); LYMPH % 22.4 % (24.0-44.0); MEAN CORPUSCULAR HEMOGLOBIN 28.4 pg (27.0-33.0); MEAN CORPUSCULAR HGB CONC 32.5 g/dl (32.0-36.5); MEAN CORPUSCULAR VOLUME 87.4 fl (80.0-96.0); MONO # 0.6 10^3/uL (0.0-0.8); MONO % 8.4 % (0.0-5.0); NEUTROPHILS # 5.1 10^3/uL (1.8-7.7); PLATELET COUNT, AUTOMATED 423 10^3/uL (150-450); RED BLOOD COUNT 4.83 10^6/uL (4.00-5.40); WHITE BLOOD COUNT 7.6 10^3/uL (4.0-10.0)
[2018-01-20 16:59] LABS: ESTIMATED AVERAGE GLUCOSE 114 MG/DL (60-110); HEMOGLOBIN A1c 5.6 %
[2018-01-20 19:23] LABS: ALBUMIN 4.1 GM/DL (3.2-5.2); ALBUMIN/GLOBULIN RATIO 0.89 (1.00-1.93); ALKALINE PHOSPHATASE 56 U/L (45-117); ALT/SGPT 25 U/L (12-78); ANION GAP 8 MEQ/L (8-16); AST/SGOT 24 U/L (7-37); BILIRUBIN,TOTAL 0.4 MG/DL (0.2-1.0); BLOOD UREA NITROGEN 30 MG/DL (7-18); CALCIUM LEVEL 10.8 MG/DL (8.8-10.2); CARBON DIOXIDE LEVEL 29 MEQ/L (21-32); CHLORIDE LEVEL 102 MEQ/L (98-107); CREATININE FOR GFR 1.73 MG/DL (0.55-1.30); FREE T4 0.98 NG/DL (0.76-1.46); GLOMERULAR FILTRATION RATE 31.4 (>45); GLUCOSE, FASTING 89 MG/DL (70-100); POTASSIUM SERUM 4.8 MEQ/L (3.5-5.1); SODIUM LEVEL 139 MEQ/L (136-145); TOTAL PROTEIN 8.7 GM/DL (6.4-8.2)
== END ==
LOC: M SFHCPLAZ 14:05
DX: R29.6 Repeated falls (principal); Z79.899 Other long term (current) drug therapy
CPT/HCPCS: 84443

== ENCOUNTER → 2018-02-01 | Outpatient (CLI) | payer MEDICARE, MEDICAID | LOC: M RAD 06:36 | DX: N18.3 Chronic kidney disease, stage 3 (moderate) (principal); I70.1 Atherosclerosis of renal artery | CPT/HCPCS: 76775 ==

== ENCOUNTER → 2018-02-02 | Outpatient (CLI) | payer MEDICARE, MEDICAID | LOC: M RAD 13:20 | DX: R29.6 Repeated falls (principal); I67.82 Cerebral ischemia | CPT/HCPCS: 70551 ==

== ENCOUNTER → 2018-03-01 | Outpatient (CLI) | payer MEDICARE, MEDICAID ==
[2018-03-01 18:49] LABS: ALBUMIN 3.8 GM/DL (3.2-5.2); ALKALINE PHOSPHATASE 45 U/L (45-117); ALT/SGPT 20 U/L (12-78); ANION GAP 9 MEQ/L (8-16); AST/SGOT 21 U/L (7-37); BILIRUBIN,TOTAL 0.3 MG/DL (0.2-1.0); BLOOD UREA NITROGEN 30 MG/DL (7-18); CARBON DIOXIDE LEVEL 29 MEQ/L (21-32); CHLORIDE LEVEL 101 MEQ/L (98-107); CREATININE FOR GFR 1.53 MG/DL (0.55-1.30); GLOMERULAR FILTRATION RATE 36.2 (>45); GLUCOSE, FASTING 90 MG/DL (70-100); SODIUM LEVEL 139 MEQ/L (136-145)
== END ==
LOC: M WUC 11:36
DX: N18.3 Chronic kidney disease, stage 3 (moderate) (principal)
CPT/HCPCS: 80053

== ENCOUNTER → 2018-03-02 | Outpatient (CLI) | payer MEDICARE, MEDICAID | LOC: M RAD 15:25 | DX: R29.6 Repeated falls (principal); I65.21 Occlusion and stenosis of right carotid artery | CPT/HCPCS: 70544 ==

== ENCOUNTER → 2018-03-11 | Outpatient (CLI) | payer MEDICARE, MEDICAID ==
[2018-03-11 18:21] LABS: ALBUMIN 3.4 GM/DL (3.2-5.2); ANION GAP 4 MEQ/L (8-16); BLOOD UREA NITROGEN 26 MG/DL (7-18); CALCIUM LEVEL 9.8 MG/DL (8.8-10.2); CARBON DIOXIDE LEVEL 31 MEQ/L (21-32); CHLORIDE LEVEL 104 MEQ/L (98-107); CREATININE FOR GFR 1.75 MG/DL (0.55-1.30); GLUCOSE, FASTING 97 MG/DL (70-100); PHOSPHORUS LEVEL 2.8 MG/DL (2.5-4.9); POTASSIUM SERUM 4.6 MEQ/L (3.5-5.1); SODIUM LEVEL 139 MEQ/L (136-145); TOTAL PROTEIN 7.4 GM/DL (6.4-8.2)
[2018-03-11 18:32] LABS: PTH INTACT 33.4 PG/ML (18.5-88.0)
[2018-03-16 08:17] LABS: PTH RELATED PEPTIDE < 2.0 pmol/L (.)
[2018-03-16 13:38] LABS: ALBUMIN 3.99 GM/DL (3.29-5.55); ALBUMIN % 53.9 % (55.8-66.1); ALPHA-1-GLOBULIN % 4.7 % (2.9-4.9); ALPHA-2-GLOBULINS % 8.6 % (7.1-11.8); BETA-1-GLOBULINS % 7.9 % (4.7-7.2); BETA-2-GLOBULINS % 5.7 % (3.2-6.5); GAMMA GLOBULIN % 19.2 % (11.1-18.8)
[2018-03-16 13:39] LABS: ALPHA-1-GLOBULINS 0.35 GM/DL (0.17-0.41); ALPHA-2-GLOBULINS 0.64 GM/DL (0.42-0.99); BETA-1-GLOBULINS 0.58 GM/DL (0.28-0.60); BETA-2-GLOBULINS 0.42 GM/DL (0.19-0.55); GAMMA GLOBULINS 1.42 GM/DL (0.65-1.58)
== END ==
LOC: M WUC 11:10
DX: E21.3 Hyperparathyroidism, unspecified (principal)
CPT/HCPCS: 84165

== ENCOUNTER 2018-03-22 16:17 | Emergency (ER) | payer MEDICARE, MEDICAID ==
[2018-03-22 17:13] LABS: HEMATOCRIT 40.7 % (36.0-47.0); HEMOGLOBIN 13.3 g/dl (12.0-15.5); MEAN CORPUSCULAR HEMOGLOBIN 28.4 pg (27.0-33.0); MEAN CORPUSCULAR HGB CONC 32.7 g/dl (32.0-36.5); MEAN CORPUSCULAR VOLUME 86.8 fl (80.0-96.0); PLATELET COUNT, AUTOMATED 387 10^3/uL (150-450); RED BLOOD COUNT 4.69 10^6/uL (4.00-5.40); RED CELL DISTRIBUTION WIDTH 13.5 % (11.5-14.5); WHITE BLOOD COUNT 8.1 10^3/uL (4.0-10.0)
[2018-03-22 17:49] LABS: ACETAMINOPHEN LEVEL < 2.0 UG/ML (10.0-30.0); ALBUMIN 3.7 GM/DL (3.2-5.2); ALBUMIN/GLOBULIN RATIO 0.86 (1.00-1.93); ALKALINE PHOSPHATASE 45 U/L (45-117); ALT/SGPT 21 U/L (12-78); ANION GAP 7 MEQ/L (8-16); AST/SGOT 23 U/L (7-37); BILIRUBIN,DIRECT 0.1 MG/DL (0.0-0.2); BILIRUBIN,TOTAL 0.4 MG/DL (0.2-1.0); BLOOD UREA NITROGEN 27 MG/DL (7-18); CALCIUM LEVEL 10.1 MG/DL (8.8-10.2); CARBON DIOXIDE LEVEL 27 MEQ/L (21-32); CHLORIDE LEVEL 104 MEQ/L (98-107); CREATININE FOR GFR 1.44 MG/DL (0.55-1.30); ETHYL ALCOHOL (ETHANOL) < 0.003 % (0.000-0.010); GLOMERULAR FILTRATION RATE 38.8 (>45); GLUCOSE, FASTING 94 MG/DL (70-100); POTASSIUM SERUM 4.3 MEQ/L (3.5-5.1); SALICYLATE LEVEL 3.3 MG/DL (5.0-30.0); SODIUM LEVEL 138 MEQ/L (136-145)
[2018-03-22 19:01] LABS: AMPHETAMINES LEVEL URINE NEGATIVE (NEGATIVE); BARBITURATES URINE NEGATIVE (NEGATIVE); BENZODIAZEPINES URINE POSITIVE (NEGATIVE); CANNABINOIDS URINE NEGATIVE (NEGATIVE); COCAINE METABOLITE URINE NEGATIVE (NEGATIVE); METHADONE URINE NEGATIVE (NEGATIVE); OPIATES URINE NEGATIVE (NEGATIVE); PHENCYCLIDINE URINE NEGATIVE (NEGATIVE)
[2018-03-22] MEDS: SERTRALINE 100 MG TAB PO (19:44)
[2018-03-22] MEDS: clonazePAM 0.5 MG TAB PO (19:44)
== END 2018-03-22 20:15 | disposition home or self-care (01) ==
LOC: M ED 16:17
DX: F43.9 Reaction to severe stress, unspecified (principal); F32.9 Major depressive disorder, single episode, unspecified; I12.9 Hypertensive chronic kidney disease with stage 1 through stage 4 chronic kidney disease, or unspecified chronic kidney disease; E03.9 Hypothyroidism, unspecified; E78.01 Familial hypercholesterolemia; N18.9 Chronic kidney disease, unspecified; Z88.0 Allergy status to penicillin; Z88.8 Allergy status to other drugs, medicaments and biological substances; Z91.040 Latex allergy status; Z79.899 Other long term (current) drug therapy; I71.9 Aortic aneurysm of unspecified site, without rupture
CPT/HCPCS: G0480

== ENCOUNTER → 2018-03-24 | Outpatient (REF) | payer MEDICARE, MEDICAID ==
[2018-03-27 00:08] LABS: LEAD BLOOD ADULT 1 ug/dL (0-4)
== END ==
LOC: M SFHCPLAZ 15:30
DX: E21.3 Hyperparathyroidism, unspecified (principal); R29.6 Repeated falls; N18.3 Chronic kidney disease, stage 3 (moderate); F41.9 Anxiety disorder, unspecified
CPT/HCPCS: 83655

== ENCOUNTER → 2018-04-22 | Outpatient (CLI) | payer MEDICARE, MEDICAID ==
[~2018-04-22] MED LIST changes: -ATEN25TA PO; -BUPR150T3 PO; -CELE20TA; -CELE40TA OR; -CELE40TA PO; -FENO48TA2 PO; +HEPARIN 1,000 UNITS/ML 10ML VIAL (FOR RADIOLOGY& DIALYSIS ONLY) As Ordered; -HYDR10TAB PO; -HYDR25TA6; -HYDR25TA6 OR; +ISOVUE-300 61% 50ML VIAL (Q9967) As Ordered; -KLON1TAB OR; -KLON1TAB PO; +LIDOCAINE 2% MDV 20 ML VIAL As Ordered; +MIDAZOLAM INJ 2 MG/2 ML VIAL (J2250) As Ordered; -PARO30TA PO; -PRAV40TA2 PO; -SERO50TA PO; -TRAZ50TA OR; -VITA100067 PO; -XANA0.5T; +fentaNYL 100 MCG/2 ML INJECTION (J3010) As Ordered
== END | disposition home or self-care (01) ==
LOC: M IRPRO 07:39
DX: I70.1 Atherosclerosis of renal artery (principal); I71.4 Abdominal aortic aneurysm, without rupture; N18.9 Chronic kidney disease, unspecified
CPT/HCPCS: 36252

== ENCOUNTER → 2018-05-04 | Outpatient (REF) | payer MEDICARE, MEDICAID ==
[2018-05-04 18:03] LABS: BASO % 0.4 % (0.0-1.0); EOS # 0.1 10^3/uL (0.0-0.50); EOS % 1.4 % (0.0-3.0); HEMATOCRIT 41.9 % (36.0-47.0); HEMOGLOBIN 13.6 g/dl (12.0-15.5); IMMATURE GRANULOCYTE % 0.3 % (0-3.0); LYMPH # 1.6 10^3/uL (1.5-4.5); LYMPH % 16.8 % (24.0-44.0); MEAN CORPUSCULAR HEMOGLOBIN 28.3 pg (27.0-33.0); MEAN CORPUSCULAR HGB CONC 32.5 g/dl (32.0-36.5); MEAN CORPUSCULAR VOLUME 87.3 fl (80.0-96.0); MONO # 0.7 10^3/uL (0.0-0.8); MONO % 7.4 % (0.0-5.0); NEUTROPHILS % 73.7 % (36.0-66.0); PLATELET COUNT, AUTOMATED 492 10^3/uL (150-450); RED CELL DISTRIBUTION WIDTH 13.2 % (11.5-14.5); WHITE BLOOD COUNT 9.5 10^3/uL (4.0-10.0)
[2018-05-04 18:20] LABS: ALBUMIN 4.1 GM/DL (3.2-5.2); ALBUMIN/GLOBULIN RATIO 0.98 (1.00-1.93); ALKALINE PHOSPHATASE 55 U/L (45-117); ALT/SGPT 22 U/L (12-78); ANION GAP 7 MEQ/L (8-16); AST/SGOT 23 U/L (7-37); BILIRUBIN,TOTAL 0.3 MG/DL (0.2-1.0); BLOOD UREA NITROGEN 35 MG/DL (7-18); CALCIUM LEVEL 11.5 MG/DL (8.8-10.2); CARBON DIOXIDE LEVEL 29 MEQ/L (21-32); CHLORIDE LEVEL 99 MEQ/L (98-107); CREATININE FOR GFR 1.63 MG/DL (0.55-1.30); GLOMERULAR FILTRATION RATE 33.5 (>45); GLUCOSE, FASTING 105 MG/DL (70-100); SODIUM LEVEL 135 MEQ/L (136-145); TOTAL PROTEIN 8.3 GM/DL (6.4-8.2)
== END ==
LOC: M SFHCPLAZ 16:19
DX: I12.9 Hypertensive chronic kidney disease with stage 1 through stage 4 chronic kidney disease, or unspecified chronic kidney disease (principal); N18.3 Chronic kidney disease, stage 3 (moderate)
CPT/HCPCS: 80053

== ENCOUNTER → 2018-05-04 | Outpatient (REF) | payer MEDICARE, MEDICAID ==
[2018-05-04 18:28] LABS: TOTAL VOLUME, URINE 1350 ML
[2018-05-04 18:41] LABS: CALCIUM, URINE 7.7 MG/DL
== END ==
LOC: M SFHCPLAZ 17:39
DX: E21.3 Hyperparathyroidism, unspecified (principal)
CPT/HCPCS: 82340

== ENCOUNTER → 2018-05-19 | Outpatient (CLI) | payer MEDICARE, MEDICAID | LOC: M RAD 08:31 | DX: R91.1 Solitary pulmonary nodule (principal) | CPT/HCPCS: 71250 ==

== ENCOUNTER 2018-05-27 10:29 | Emergency (ER) | payer MEDICARE, MEDICAID ==
[2018-05-27 12:05] LABS: KETONE, URINE AUTO RFX NEGATIVE (NEGATIVE); LEUKOCYTE ESTERASE UR AUTO RFX NEGATIVE (NEGATIVE); NITRITE, URINE AUTO RFX NEGATIVE (NEGATIVE); RBC, URINE AUTO RFX 1 /HPF (0-3); SPECIFIC GRAVITY UR AUTO RFX 1.018 (1.002-1.035); SQUAM EPITHELIAL CELL UR AURFX 0 /HPF (0-6); WBC, URINE AUTO RFX 1 /HPF (0-3)
[2018-05-27 12:19] LABS: BASO % 0.4 % (0.0-1.0); EOS % 0.3 % (0.0-3.0); HEMATOCRIT 41.8 % (36.0-47.0); HEMOGLOBIN 13.9 g/dl (12.0-15.5); IMMATURE GRANULOCYTE % 0.4 % (0-3.0); LYMPH # 1.4 10^3/uL (1.5-4.5); LYMPH % 14.4 % (24.0-44.0); MEAN CORPUSCULAR HEMOGLOBIN 28.7 pg (27.0-33.0); MEAN CORPUSCULAR HGB CONC 33.3 g/dl (32.0-36.5); MEAN CORPUSCULAR VOLUME 86.2 fl (80.0-96.0); MONO # 0.7 10^3/uL (0.0-0.8); NEUTROPHILS # 7.6 10^3/uL (1.8-7.7); NEUTROPHILS % 77.5 % (36.0-66.0); PLATELET COUNT, AUTOMATED 436 10^3/uL (150-450); RED BLOOD COUNT 4.85 10^6/uL (4.00-5.40); RED CELL DISTRIBUTION WIDTH 13.5 % (11.5-14.5); WHITE BLOOD COUNT 9.7 10^3/uL (4.0-10.0)
[2018-05-27 12:22] LABS: AMPHETAMINES LEVEL URINE NEGATIVE (NEGATIVE); BARBITURATES URINE NEGATIVE (NEGATIVE); BENZODIAZEPINES URINE NEGATIVE (NEGATIVE); CANNABINOIDS URINE NEGATIVE (NEGATIVE); COCAINE METABOLITE URINE NEGATIVE (NEGATIVE); METHADONE URINE NEGATIVE (NEGATIVE); OPIATES URINE NEGATIVE (NEGATIVE); PHENCYCLIDINE URINE NEGATIVE (NEGATIVE)
[2018-05-27 13:00] LABS: ACETAMINOPHEN LEVEL < 2.0 UG/ML (10.0-30.0); ALBUMIN 4.2 GM/DL (3.2-5.2); ALBUMIN/GLOBULIN RATIO 1.05 (1.00-1.93); ALKALINE PHOSPHATASE 54 U/L (45-117); ALT/SGPT 20 U/L (12-78); ANION GAP 9 MEQ/L (8-16); AST/SGOT 24 U/L (7-37); BILIRUBIN,DIRECT 0.2 MG/DL (0.0-0.2); BILIRUBIN,TOTAL 0.4 MG/DL (0.2-1.0); BLOOD UREA NITROGEN 29 MG/DL (7-18); CALCIUM LEVEL 11.5 MG/DL (8.8-10.2); CARBON DIOXIDE LEVEL 27 MEQ/L (21-32); CHLORIDE LEVEL 102 MEQ/L (98-107); CREATININE FOR GFR 1.52 MG/DL (0.55-1.30); ETHYL ALCOHOL (ETHANOL) < 0.003 % (0.000-0.010); GLOMERULAR FILTRATION RATE 36.3 (>45); GLUCOSE, FASTING 109 MG/DL (70-100); LIPASE 130 U/L (73-393); POTASSIUM SERUM 4.7 MEQ/L (3.5-5.1); SALICYLATE LEVEL 2.9 MG/DL (5.0-30.0); SODIUM LEVEL 138 MEQ/L (136-145); TOTAL PROTEIN 8.2 GM/DL (6.4-8.2)
[2018-05-27] MEDS: ONDANSETRON 4MG/2ML VIAL (J2405) IV (16:14)
[2018-05-27] MEDS: MORPHINE 2 MG/ML 1ML SYRINGE (J2270) IV (16:15)
== END 2018-05-27 18:02 | disposition home or self-care (01) ==
LOC: M ED 10:29
DX: K80.20 Calculus of gallbladder without cholecystitis without obstruction (principal); I10 Essential (primary) hypertension; F17.200 Nicotine dependence, unspecified, uncomplicated; E78.5 Hyperlipidemia, unspecified
CPT/HCPCS: J2405

== ENCOUNTER 2018-05-29 15:37 | Observation (INO) | payer MEDICARE, MEDICAID ==
[~2018-05-29] VITALS: Ht 167.6 cm; Wt 76.0 kg
[~2018-05-29 15:37] MED LIST changes: +ATEN25TA PO; +BUPR150T3 PO; +BUPR300T34 PO; +CELE20TA; +CELE40TA OR; +CELE40TA PO; +CLON0.5T8 PO; +FENO145T13 PO; +FENO48TA2 PO; +FLON1SPR; -HEPARIN 1,000 UNITS/ML 10ML VIAL (FOR RADIOLOGY& DIALYSIS ONLY) As Ordered; +HYDR-3363 PO; +HYDR10TAB PO; +HYDR25TA6; +HYDR25TA6 OR; -ISOVUE-300 61% 50ML VIAL (Q9967) As Ordered; +KLON1TAB OR; +KLON1TAB PO; +LEVO25TA5; -LIDOCAINE 2% MDV 20 ML VIAL As Ordered; +LISI-542; +LISI-542 PO; -MIDAZOLAM INJ 2 MG/2 ML VIAL (J2250) As Ordered; +PARO30TA PO; +PRAV40TA2 PO; +PRAV80TA2 PO; +QUET1TAB9 PO; +QUET5TAB PO; +SERO50TA PO; +SERT50TA PO; +SYNT25TA PO; +TRAZ-186; +TRAZ50TA OR; +TRAZO50TA PO; +VITA100067 PO; +XANA0.5T; -fentaNYL 100 MCG/2 ML INJECTION (J3010) As Ordered
[2018-05-29 16:48] LABS: BASO % 0.6 % (0.0-1.0); EOS # 0.1 10^3/uL (0.0-0.50); EOS % 1.1 % (0.0-3.0); HEMATOCRIT 40.8 % (36.0-47.0); HEMOGLOBIN 13.6 g/dl (12.0-15.5); LYMPH # 1.8 10^3/uL (1.5-4.5); LYMPH % 25.1 % (24.0-44.0); MEAN CORPUSCULAR HEMOGLOBIN 28.6 pg (27.0-33.0); MEAN CORPUSCULAR HGB CONC 33.3 g/dl (32.0-36.5); MEAN CORPUSCULAR VOLUME 85.7 fl (80.0-96.0); MONO # 0.5 10^3/uL (0.0-0.8); MONO % 7.5 % (0.0-5.0); NEUTROPHILS # 4.7 10^3/uL (1.8-7.7); NEUTROPHILS % 65.3 % (36.0-66.0); PLATELET COUNT, AUTOMATED 444 10^3/uL (150-450); RED BLOOD COUNT 4.76 10^6/uL (4.00-5.40); WHITE BLOOD COUNT 7.2 10^3/uL (4.0-10.0)
[2018-05-29] MEDS ORDERED: ONDANSETRON 4MG/2ML VIAL (J2405) As Ordered ONE (16:53)
[2018-05-29 17:18] LABS: ALT/SGPT 22 U/L (12-78); BILIRUBIN,DIRECT 0.2 MG/DL (0.0-0.2); BILIRUBIN,TOTAL 0.4 MG/DL (0.2-1.0); BLOOD UREA NITROGEN 30 MG/DL (7-18); CALCIUM LEVEL 10.8 MG/DL (8.8-10.2); CARBON DIOXIDE LEVEL 26 MEQ/L (21-32); CHLORIDE LEVEL 104 MEQ/L (98-107); CK-MB VALUE MASS < 1.0 NG/ML (<3.6); CPK CREATINE PHOSPHOKINASE 54 U/L (26-192); CREATININE FOR GFR 1.56 MG/DL (0.55-1.30); GLOMERULAR FILTRATION RATE 35.2 (>45); GLUCOSE, FASTING 94 MG/DL (70-100); LIPASE 143 U/L (73-393); MB/CK RELATIVE INDEX 1.85 (< OR =4); SODIUM LEVEL 139 MEQ/L (136-145); TOTAL PROTEIN 8.2 GM/DL (6.4-8.2); TROPONIN I < 0.02 NG/ML (< 0.10)
[2018-05-29] MEDS ORDERED: KETOROLAC 30 MG/ML VIAL (J1885) As Ordered ONE (18:05)
[2018-05-29] MEDS ORDERED: GASTROGRAFIN SOLUTION 30ML (Q9963) As Ordered ONE (18:05)
[2018-05-29] MEDS ORDERED: KETOROLAC 30 MG/ML VIAL (J1885) IV ONE (18:10)
[2018-05-29] MEDS: GASTROGRAFIN SOLUTION 30ML PO SCH ×2 (18:10→18:50)
[2018-05-29] MEDS ORDERED: ISOVUE-370 76% 100ML VIAL (Q9967) As Ordered ONE (19:32)
--- NOTE | 2018-05-29 20:03 | REP ---
Clinical: Generalized abdominal pain radiating to the left upper quadrant. Technique: Axial contrast enhanced images from the lung bases to the pubic symphysis using oral (per protocol) and 100 ml Isovue 370 intravenous contrast material with coronal and sagittal re-formations. Comparison: 05/27/2018. Findings: Lung bases are clear. Hepatic steatosis noted without focal hepatic lesion. See spleen, pancreas, bilateral adrenal glands and right kidney appear normal. Left kidney demonstrates cortical atrophic change and few hypodensities compatible with cysts measuring up to 2 cm. Cholelithiasis noted without acute cholecystitis. The enteric system is without obstruction or acute inflammatory process. Normal terminal ileum and appendix are identified in the right lower quadrant. Few scattered sigmoid diverticula noted without acute diverticulitis. Pelvis demonstrates collapsed bladder and age-appropriate uterus/adnexa. No ascites. No free air. No adenopathy. Musculoskeletal structures demonstrate age-related degenerative changes without focal osseous abnormality. The patient is status post aortoiliac stent graft for aneurysm measuring 4.6 x 4.4 cm maximal diameter. Impression: 1. No obvious acute abdominopelvic pathology appreciated. 2. Hepatic steatosis. 3. Cholelithiasis. 4. Aortic aneurysm with aorto-iliac stent graft appears relatively stable. 5. Diverticulosis without acute diverticulitis. 6. No ascites, adenopathy, or focal inflammatory changes noted. Electronically Signed by Mo Mcmahon MD 05/29/2018 07:54 P
--- NOTE | 2018-05-29 20:11 | REP ---
Clinical: Acute left-sided chest pain. Technique: Axial contrast enhanced images from the thoracic inlet to the upper abdomen using pulmonary embolus protocol with multiplanar re-formations. 100 ml Isovue 370 intravenous contrast material administered without complication. Comparison: 01/21/2016. Findings: Satisfactory enhancement of the pulmonary vasculature is achieved and no filling defects are identified to suggest pulmonary embolus. Significant chronic atherosclerotic changes to the thoracic aorta noted including intimal calcifications and mural thrombus primarily involving the aortic arch and distal descending thoracic aorta. Findings are essentially unchanged when compared through 01/21/2016. No evidence for aortic dissection. The bilateral lung ness are well-aerated. 8 mm noncalcified subpleural nodule along the posterior apical right upper lobe (image 34) remains stable through 01/21/2016. No acute consolidation or mass lesion. No pleural effusion. No pneumothorax. Tracheobronchial tree is patent. No obvious axillary, hilar, or mediastinal adenopathy. Musculoskeletal structures appear intact without focal osseous abnormality. Impression: 1. No evidence for pulmonary embolus. 2. Significant atherosclerotic changes to the thoracic aorta including scattered intimal calcifications and mural thrombus primarily involving the arch and distal descending aorta. No evidence for dissection. 3. Stable 8 mm noncalcified nodule in the apical segment right lower lobe. 4. No further acute pleuroparenchymal process appreciated. Electronically Signed by Mo Mcmahon MD 05/29/2018 08:02 P
--- NOTE | 2018-05-29 20:21 | ECGEPIP ---
Stationary ECG Study [facility] - ED Test Date: 2018-05-29 Pat Name: STACEY LAL Department: Room: - Gender: F Prior Authorization Technician: : [id number] Requested By: RICHARD Mendez Order Number: [id number] Reading MD: Erica Vidal Measurements Intervals [place] Rate: 79 P: 36 WI: 158 QRS: -21 QRSD: 87 T: 13 QT: 383 QTc: 440 Interpretive Statements SINUS RHYTHM WITH SINUS ARRHYTHMIA BORDERLINE LEFT AXIS DEVIATION NONSPECIFIC ST T WAVE CHANGES CW 06/10/[address] T WAVE CHANGE Electronically Signed On 05-29-2018 20:20:58 EST by Erica Vidal
[2018-05-29] MEDS ORDERED: PERCOCET 5MG/325MG TAB PO ONE (20:30)
[2018-05-29] MEDS ORDERED: MORPHINE 4 MG/ML 1ML VIAL/SYRINGE (J2270) IV ONE (21:30)
[2018-05-29] MEDS ORDERED: REME15TA PO (23:15)
[2018-05-29] MEDS ORDERED: VIIB10TA PO (23:15)
[2018-05-29] MEDS ORDERED: LISI10TA4 PO (23:21)
[2018-05-29] MEDS ORDERED: SIMETHICONE 80 MG CHEW TAB PO PRN (23:30)
[2018-05-29] MEDS ORDERED: ONDANSETRON 4 MG TAB (S0181) PO PRN (23:30)
[2018-05-29] MEDS ORDERED: ACETAMINOPHEN 650 MG SUPP PR PRN (23:30)
[2018-05-29] MEDS ORDERED: ACETAMINOPHEN TAB 650MG DOSE (2X325MG) PO PRN (23:45)
--- NOTE | 2018-05-29 23:51 | HPEPDOC ---
General Date of Admission May 29, 2018 at 22:46 Primary Care Physician: Ellen Salter Chief Complaint The patient is a 68-year-old female admitted with a reason for visit of Intractable Abdominal Pain. Source: Patient History of Present Illness 68 y/o female with past medical history of anxiety, depression, hypothyroidism, insomnia, allergic rhinitis, CKD3, HTN, DLP, history of stable right pulmonary nodule, abdominal aortic aneurysm s/p endovascular stenting and proteinuria who presents to ED today complaining of left rib cage/chest pain, sharp in nature worse with movement of trunk in any direction and physical palpation of the area. Not worsened with inspiration, denies actual chest pain or heart palpitations. Admits this began over a week ago, was in our ED a few days ago with this similar complaint and she was told she had a kidney stone apparently. The pain has not gotten better, radiates from left chest cage area across abdomen, denies constipation or diarrhea, admits to some vomiting x2 episodes the past few days of non-bloody, non-bilious clear food substances, no recent travel or sick contact, no change in vision or headache, appetite has been a bit diminished over the past few days, no fevers,muscle aches or chills. No history of long car rides or plane trips or prolonged periods of immobility, admits her left leg has looked minimally more swollen the past week or so but no pain or associated redness. Chest/rib cage discomfort is not worsened with food intake. Denies SOB or cough, no blood in urine or stool to her knowledge, no discomfort with urination or defecation, no new back pain to report. Admits she is perhaps a bit dizzy for a few seconds standing up. No clear cause for abdominal pain, ER requests that patient be admitted for further evaluation and treatment for intractable abdominal pain as patient unable to return home due to pain. Home Medications Scheduled (Viibryd) 10 Mg Tab, 10 MG PO DAILY, (Reported) Bupropion HCl (Bupropion HCl Xl) 300 Mg Tab, 300 MG PO DAILY, (Reported) Fenofibrate (Fenofibrate) 145 Mg Tab, 145 MG PO QHS, (Reported) Hydralazine HCl (Hydralazine HCl) 10 Mg Tab, 10 MG PO BID, (Reported) Levothyroxine Sodium (Synthroid) 25 Mcg Tab, 25 MCG PO DAILY, (Reported) Lisinopril (Lisinopril) 10 Mg Tab, 10 MG PO DAILY, (Reported) Mirtazapine (Remeron) 15 Mg Tab, 15 MG PO QHS, (Reported) Pravastatin Sodium (Pravastatin Sodium) 80 Mg Tab, 80 MG PO QHS, (Reported) Scheduled PRN Hydroxyzine HCl (Hydroxyzine HCl) 25 Mg Tab, 25 MG PO Q6H PRN for ANXIETY, (Reported) Ondansetron HCl (Ondansetron HCl) 4 Mg Tab, 4 MG PO Q6HP PRN for NAUSEA OR VOMITING Allergies Coded Allergies: Corticosteroids (Unverified Allergy, Mild, rash, 06/10/17) Latex (Verified Allergy, Mild, 01/09/17) Penicillins (Verified Allergy, Unknown, 01/09/17) Penicillins Cross Reactors (Verified Allergy, Unknown, 01/09/17) Past Medical History Medical History see hpi Surgical History endovascular stent for aortic abdominal aneurysm Family History Significant Family History: Noncontributory Social History * Smoker: former Smoker Alcohol: Denies Drugs: denies Review of Systems Constitutional: Reports: Malaise, Fatigue; Denies: Chills, Fever, Night Sweats, Weakness Eyes: Denies: Vision change ENT: Denies: Head Aches Pulmonary: Denies: Dyspnea, Cough Cardiovascular: Reports: Edema, Lt Headedness; Denies: Chest Pain, Palpitations, Orthopnea, Paroxysmal Noc. Dyspnea Gastrointestinal: Reports: Nausea, Vomiting; Denies: Abdominal Pain, Diarrhea, Constipation, Melena, Hematochezia Genitourinary: Denies: Dysuria Hematologic: Denies: Bruising Musculoskeletal: Denies: Neck Pain Neurological: Denies: Weakness Psych: Reports: Mood Normal Physical Examination General Exam: Positive: Alert, Cooperative, No Acute Distress Eye Exam: Positive: Conjunctiva & lids normal ENT Exam: Positive: Mucous membr. moist/pink Neck Exam: Positive: Supple Chest Exam: Positive: Clear to auscultation, Normal air movement; Negative: Rales, Rhonchi, Wheezing, Diminished Heart Exam: Positive: Rate Normal, Normal S1, Normal S2; Negative: Gallops, Murmurs Abdomen Exam: Positive: Normal bowel sounds, Tenderness (tactile stimulatory pain across abdomen ); Negative: Hepatospenomegaly, Mass Extremity Exam: Negative: Clubbing, Cyanosis, Edema Neuro Exam: Positive: Normal Speech Psych Exam: Positive: Mental status NL Vital Signs Vital Signs Date Time Temp Pulse Resp B/P (MAP) Pulse Ox O2 Delivery O2 Flow Rate FiO2 05/29/18 21:55 17 05/29/18 21:32 98.1 78 155/69 (97) 97 Room Air Laboratory Data Labs 24H Laboratory Tests 2 05/29/18 16:18: Immature Granulocyte % (Auto) 0.4, White Blood Count 7.2, Red Blood Count 4.76, Hemoglobin 13.6, Hematocrit 40.8, Mean Corpuscular Volume 85.7, Mean Corpuscular Hemoglobin 28.6, Mean Corpuscular Hemoglobin Concent 33.3, Red Cell Distribution Width 13.2, Platelet Count 444, Neutrophils (%) (Auto) 65.3, Lymphocytes (%) (Auto) 25.1, Monocytes (%) (Auto) 7.5H, Eosinophils (%) (Auto) 1.1, Basophils (%) (Auto) 0.6, Neutrophils # (Auto) 4.7, Lymphocytes # (Auto) 1.8, Monocytes # (Auto) 0.5, Eosinophils # (Auto) 0.1, Basophils # (Auto) 0.0, Nucleated Red Blood Cells % (auto) 0.0, Urine Color YELLOW, Urine Appearance CLEAR, Urine pH 5.0, Urine Specific [place] 1.023, Urine Protein 1+H, Urine Glucose (UA) NEGATIVE, Urine Ketones NEGATIVE, Urine Blood NEGATIVE, Urine Nitrite NEGATIVE, Urine Bilirubin NEGATIVE, Urine Urobilinogen 0.2, Urine Leukocyte Esterase NEGATIVE, Urine WBC (Auto) 1, Urine RBC (Auto) 2, Urine Hyaline Casts (Auto) 0, Urine Bacteria (Auto) NEGATIVE, Urine Squamous Epithelial Cells 1, Urine Sperm (Auto) , Anion Gap 9, Glomerular Filtration Rate 35.2L, Calcium Level 10.8H, Aspartate Amino Transf (AST/SGOT) 24, Alanine Aminotransferase (ALT/SGPT) 22, Alkaline Phosphatase 54, Total Bilirubin 0.4, Direct Bilirubin 0.2, Total Creatine Kinase 54, Creatine Kinase MB < 1.0, Creatine Kinase MB Relative Index 1.85, Troponin I < 0.02, Total Protein 8.2, Albumin 4.0, Albumin/Globulin Ratio 0.95L, Lipase 143 CBC/BMP Laboratory Tests 05/29/18 16:18 Red Blood Count 4.76, Mean Corpuscular Volume 85.7, Mean Corpuscular Hemoglobin 28.6, Mean Corpuscular Hemoglobin Concent 33.3, Red Cell Distribution Width 13.2, Neutrophils (%) (Auto) 65.3, Lymphocytes (%) (Auto) 25.1, Monocytes (%) (Auto) 7.5 H, Eosinophils (%) (Auto) 1.1, Basophils (%) (Auto) 0.6, Neutrophils # (Auto) 4.7, Lymphocytes # (Auto) 1.8, Monocytes # (Auto) 0.5, Eosinophils # (Auto) 0.1, Basophils # (Auto) 0.0 Assessment/Plan 1. Intractable nausea and vomiting, no clear cause. ER request patient be adm itted as patient unable to return home due to pain. -EKG reviewed in ED., no concerning signs of arrhythmia or st-t wave changes, one set troponin neg in ED -CT abdomen without acute intra-abdominal pathology to account for patients pain, ischemic mesentery not likely, CTA chest ruled out PE -GB u/s on visit from earlier this week showed, There is cholelithiasis without evidence of acute cholecystitis. There is possible early evidence of gallbladder wall adenomyomatosis. This should be correlated clinically with appropriate followup. -CT ab/pelvis from 05.27.18 showed 1. Cholelithiasis. 2. 1.3 cm left renal cyst. 3. Diverticulosis. 4. The patient is status post stenting of an abdominal aortic aneurysm. - Keep pt NPO for now, provide light hydration in view of some dizziness and kidney function -pain control with tylenol for now, zofran and simethicone scheduled -will obtain occult blood although less concerned for GI pathology -CT abdomen and pelvis with oral and IV contrast overnight 1. No obvious acute abdominopelvic pathology appreciated. 2. Hepatic steatosis. 3. Cholelithiasis. 4. Aortic aneurysm with aorto-iliac stent graft appears relatively stable. 5. Diverticulosis without acute diverticulitis. 6. No ascites, adenopathy, or focal inflammatory changes noted. CTA chest 1. No evidence for pulmonary embolus. 2. Significant atherosclerotic changes to the thoracic aorta including scattered intimal calcifications and mural thrombus primarily involving the arch and distal descending aorta. No evidence for dissection. 3. Stable 8 mm noncalcified nodule in the apical segment right lower lobe. 4. No further acute pleuroparenchymal process appreciated. 2. HTN -c/w home medications 4. DLP -c/w home medications 5. Depression/anxiety -c/w home medications 6. CKD -creatine is at her baseline today, continue to monitor -patient receiving IVF 7. DVT px -scd/teds Plan / VTE VTE Prophylaxis Ordered?: Yes GME ATTESTATION GME ATTESTATION My faculty preceptor for this patient encounter was physically present during the encounter and was fully available. All aspects of the patient interview, examination, medical decision making process, and medical care plan development were reviewed and approved by the faculty preceptor. The faculty preceptor is aware and concurs with the plan as stated in the body of this note and will attest to such by his/her cosignature. MADAY RUANO DO May 29, 2018 23:51 CHINYERE DAVIS MD May 30, 2018 06:47
[2018-05-30 00:32] VITALS: BP 145/81
[2018-05-30] MEDS: NS 1,000 ML IV SCH ×2 (00:56→13:57)
[2018-05-30] MEDS ORDERED: MIRTAZAPINE 15 MG TAB PO SCH (04:38)
[2018-05-30] MEDS ORDERED: FENOFIBRATE 145 MG TAB (TRICOR) PO SCH (04:38)
[2018-05-30] MEDS ORDERED: PRAVASTATIN 20 MG TAB PO SCH (04:39)
[2018-05-30] MEDS ORDERED: hydrOXYzine 25 MG TAB PO PRN (04:45)
[2018-05-30 06:00] VITALS: BP 131/60
[2018-05-30 06:30] LABS: CALCIUM LEVEL 10.2 MG/DL (8.8-10.2); CREATININE FOR GFR 1.86 MG/DL (0.55-1.30); GLOMERULAR FILTRATION RATE 28.8 (>45); POTASSIUM SERUM 4.5 MEQ/L (3.5-5.1)
[2018-05-30 06:33] LABS: BASO % 0.5 % (0.0-1.0); EOS # 0.1 10^3/uL (0.0-0.50); EOS % 1.7 % (0.0-3.0); HEMOGLOBIN 11.7 g/dl (12.0-15.5); LYMPH # 2.3 10^3/uL (1.5-4.5); LYMPH % 30.5 % (24.0-44.0); MEAN CORPUSCULAR HEMOGLOBIN 28.6 pg (27.0-33.0); MEAN CORPUSCULAR HGB CONC 32.5 g/dl (32.0-36.5); MONO # 0.6 10^3/uL (0.0-0.8); MONO % 8.4 % (0.0-5.0); NEUTROPHILS # 4.4 10^3/uL (1.8-7.7); NEUTROPHILS % 58.5 % (36.0-66.0); PLATELET COUNT, AUTOMATED 376 10^3/uL (150-450); RED BLOOD COUNT 4.09 10^6/uL (4.00-5.40); WHITE BLOOD COUNT 7.5 10^3/uL (4.0-10.0)
[2018-05-30 08:42] VITALS: BP 117/82
[2018-05-30] MEDS ORDERED: PREVNAR 13 VACCINE SYRINGE (CPT CODE:90670) IM ONE (09:00)
[2018-05-30] MEDS ORDERED: buPROPion **XL** TABLET 150MG (WELLBUTRIN XL) PO SCH (09:00)
[2018-05-30] MEDS ORDERED: LEVOTHYROXINE 25MCG TABLET (0.025MG) PO SCH (09:00)
[2018-05-30] MEDS ORDERED: **hydrALAZINE** 10 MG TAB PO SCH (09:00)
[2018-05-30] MEDS ORDERED: LISINOPRIL 10 MG TAB PO SCH (09:00)
--- NOTE | 2018-05-30 11:59 | IPNPDOC ---
Subjective Date Seen The patient was seen on 05/30/18. Objective Physical Examination General Exam: Positive: Alert, Cooperative, No Acute Distress Eye Exam: Positive: Conjunctiva & lids normal ENT Exam: Positive: Mucous membr. moist/pink Neck Exam: Positive: Supple Chest Exam: Positive: Clear to auscultation, Normal air movement; Negative: Rales, Rhonchi, Wheezing, Diminished Heart Exam: Positive: Rate Normal, Normal S1, Normal S2; Negative: Gallops, Murmurs Abdomen Exam: Positive: Normal bowel sounds, Tenderness (tactile stimulatory pain across abdomen ); Negative: Hepatospenomegaly, Mass Extremity Exam: Negative: Clubbing, Cyanosis, Edema Neuro Exam: Positive: Normal Speech Psych Exam: Positive: Mental status NL Assessment /Plan Plan/VTE VTE Prophylaxis Ordered?: Yes VS[facility]s/[facility]&O Vital Signs Date Time Temp Pulse Resp B/P (MAP) Pulse Ox O2 Delivery O2 Flow Rate FiO2 05/30/18 08:42 117/82 05/30/18 06:00 97.9 69 18 99 Room Air I&O- Last 24 Hours up to 6 AM 05/30/18 05:59 Intake Total 0 ml Balance 0 ml Laboratory Data 24H LABS Laboratory Tests 2 05/29/18 16:18: Immature Granulocyte % (Auto) 0.4, White Blood Count 7.2, Red Blood Count 4.76, Hemoglobin 13.6, Hematocrit 40.8, Mean Corpuscular Volume 85.7, Mean Corpuscular Hemoglobin 28.6, Mean Corpuscular Hemoglobin Concent 33.3, Red Cell Distribution Width 13.2, Platelet Count 444, Neutrophils (%) (Auto) 65.3, Lymphocytes (%) (Auto) 25.1, Monocytes (%) (Auto) 7.5H, Eosinophils (%) (Auto) 1.1, Basophils (%) (Auto) 0.6, Neutrophils # (Auto) 4.7, Lymphocytes # (Auto) 1.8, Monocytes # (Auto) 0.5, Eosinophils # (Auto) 0.1, Basophils # (Auto) 0.0, Nucleated Red Blood Cells % (auto) 0.0, Urine Color YELLOW, Urine Appearance CLEAR, Urine pH 5.0, Urine Specific [place] 1.023, Urine Protein 1+H, Urine Glucose (UA) NEGATIVE, Urine Ketones NEGATIVE, Urine Blood NEGATIVE, Urine Nitrite NEGATIVE, Urine Bilirubin NEGATIVE, Urine Urobilinogen 0.2, Urine Leukocyte Esterase NEGATIVE, Urine WBC (Auto) 1, Urine RBC (Auto) 2, Urine Hyaline Casts (Auto) 0, Urine Bacteria (Auto) NEGATIVE, Urine Squamous Epithelial Cells 1, Urine Sperm (Auto) , Anion Gap 9, Glomerular Filtration Rate 35.2L, Calcium Level 10.8H, Aspartate Amino Transf (AST/SGOT) 24, Alanine Aminotransferase (ALT/SGPT) 22, Alkaline Phosphatase 54, Total Bilirubin 0.4, Direct Bilirubin 0.2, Total Creatine Kinase 54, Creatine Kinase MB < 1.0, Creatine Kinase MB Relative Index 1.85, Troponin I < 0.02, Total Protein 8.2, Albumin 4.0, Albumin/Globulin Ratio 0.95L, Lipase 143 05/30/18 05:16: Immature Granulocyte % (Auto) 0.4, White Blood Count 7.5, Red Blood Count 4.09, Hemoglobin 11.7L, Hematocrit 36.0, Mean Corpuscular Volume 88.0, Mean Corpuscular Hemoglobin 28.6, Mean Corpuscular Hemoglobin Concent 32.5, Red Cell Distribution Width 13.4, Platelet Count 376, Neutrophils (%) (Auto) 58.5, Lymphocytes (%) (Auto) 30.5, Monocytes (%) (Auto) 8.4H, Eosinophils (%) (Auto) 1.7, Basophils (%) (Auto) 0.5, Neutrophils # (Auto) 4.4, Lymphocytes # (Auto) 2.3, Monocytes # (Auto) 0.6, Eosinophils # (Auto) 0.1, Basophils # (Auto) 0.0, Nucleated Red Blood Cells % (auto) 0.0, Anion Gap 6L, Glomerular Filtration Rate 28.8L, Calcium Level 10.2, Blood Urea Nitrogen 32H, Creatinine 1.86H, Sodium Level 139, Potassium Level 4.5, Chloride Level 104, Carbon Dioxide Level 29 CBC/BMP Laboratory Tests 05/29/18 16:18 Red Blood Count 4.76, Mean Corpuscular Volume 85.7, Mean Corpuscular Hemoglobin 28.6, Mean Corpuscular Hemoglobin Concent 33.3, Red Cell Distribution Width 13.2, Neutrophils (%) (Auto) 65.3, Lymphocytes (%) (Auto) 25.1, Monocytes (%) (Auto) 7.5 H, Eosinophils (%) (Auto) 1.1, Basophils (%) (Auto) 0.6, Neutrophils # (Auto) 4.7, Lymphocytes # (Auto) 1.8, Monocytes # (Auto) 0.5, Eosinophils # (A uto) 0.1, Basophils # (Auto) 0.0 05/30/18 05:16 Red Blood Count 4.09, Mean Corpuscular Volume 88.0, Mean Corpuscular Hemoglobin 28.6, Mean Corpuscular Hemoglobin Concent 32.5, Red Cell Distribution Width 13.4, Neutrophils (%) (Auto) 58.5, Lymphocytes (%) (Auto) 30.5, Monocytes (%) (Auto) 8.4 H, Eosinophils (%) (Auto) 1.7, Basophils (%) (Auto) 0.5, Neutrophils # (Auto) 4.4, Lymphocytes # (Auto) 2.3, Monocytes # (Auto) 0.6, Eosinophils # (Auto) 0.1, Basophils # (Auto) 0.0, Calcium Level 10.2 Jose Peña MD May 30, 2018 11:59
[2018-05-30 14:00] VITALS: BP 110/74
[2018-05-30] MEDS ORDERED: ONDA4TAB5 PO (18:35)
--- NOTE | 2018-05-30 18:38 | DS.PDOC ---
Discharge Summary General Date of Admission May 29, 2018 at 22:46 Discharge Summary PROCEDURES PERFORMED DURING STAY: [None]. ADMITTING DIAGNOSES: 1. . DISCHARGE DIAGNOSES: 1. . COMPLICATIONS/CHIEF COMPLAINT: Intractable Abdominal Pain. HISTORY OF PRESENT ILLNESS: . HOSPITAL COURSE: . DISCHARGE MEDICATIONS: Please see below. ALLERGIES: Please see below. PHYSICAL EXAMINATION ON DISCHARGE: VITAL SIGNS: Please see below. GENERAL: HEENT: NECK: CARDIOVASCULAR EXAMINATION: RESPIRATORY EXAMINATION: ABDOMINAL EXAMINATION: EXTREMITIES: SKIN: NEUROLOGICAL EXAMINATION: PSYCHIATRIC EXAMINATION: LABORATORY DATA: Please see below. IMAGING: PROGNOSIS: ACTIVITY: [As tolerated]. DIET: DISCHARGE PLAN: DISPOSITION: . DISCHARGE INSTRUCTIONS: 1. . ITEMS TO FOLLOWUP ON ON OUTPATIENT: 1. . DISCHARGE CONDITION: [Stable]. TIME SPENT ON DISCHARGE: Greater than minutes. Vital Signs/I&Os Vital Signs Date Time Temp Pulse Resp B/P (MAP) Pulse Ox O2 Delivery O2 Flow Rate FiO2 05/30/18 14:00 98.4 97 18 110/74 (86) 96 Room Air I&O- Last 24 Hours up to 6 AM 05/30/18 06:00 Intake Total 480 ml Output Total 0 ml Balance 480 ml Laboratory Data Labs 24H Laboratory Tests 2 05/30/18 05:16: Immature Granulocyte % (Auto) 0.4, White Blood Count 7.5, Red Blood Count 4.09, Hemoglobin 11.7L, Hematocrit 36.0, Mean Corpuscular Volume 88.0, Mean Corpuscular Hemoglobin 28.6, Mean Corpuscular Hemoglobin Concent 32.5, Red Cell Distribution Width 13.4, Platelet Count 376, Neutrophils (%) (Auto) 58.5, Lymphocytes (%) (Auto) 30.5, Monocytes (%) (Auto) 8.4H, Eosinophils (%) (Auto) 1.7, Basophils (%) (Auto) 0.5, Neutrophils # (Auto) 4.4, Lymphocytes # (Auto) 2.3, Monocytes # (Auto) 0.6, Eosinophils # (Auto) 0.1, Basophils # (Auto) 0.0, Nucleated Red Blood Cells % (auto) 0.0, Anion Gap 6L, Glomerular Filtration Rate 28.8L, Blood Urea Nitrogen 32H, Creatinine 1.86H, Sodium Level 139, Potassium Level 4.5, Chloride Level 104, Carbon Dioxide Level 29, Calcium Level 10.2 CBC/BMP Laboratory Tests 05/30/18 05:16 Red Blood Count 4.09, Mean Corpuscular Volume 88.0, Mean Corpuscular Hemoglobin 28.6, Mean Corpuscular Hemoglobin Concent 32.5, Red Cell Distribution Width 13.4, Neutrophils (%) (Auto) 58.5, Lymphocytes (%) (Auto) 30.5, Monocytes (%) (A uto) 8.4 H, Eosinophils (%) (Auto) 1.7, Basophils (%) (Auto) 0.5, Neutrophils # (Auto) 4.4, Lymphocytes # (Auto) 2.3, Monocytes # (Auto) 0.6, Eosinophils # (Auto) 0.1, Basophils # (Auto) 0.0, Calcium Level 10.2 Microbiology Microbiology 05/30/18 Stool Occult Blood (DIANA) - Final, Complete Discharge Medications Scheduled (Viibryd) 10 Mg Tab, 10 MG PO DAILY, (Reported) Bupropion HCl (Bupropion HCl Xl) 300 Mg Tab, 300 MG PO DAILY, (Reported) Fenofibrate (Fenofibrate) 145 Mg Tab, 145 MG PO QHS, (Reported) Hydralazine HCl (Hydralazine HCl) 10 Mg Tab, 10 MG PO BID, (Reported) Levothyroxine Sodium (Synthroid) 25 Mcg Tab, 25 MCG PO DAILY, (Reported) Lisinopril (Lisinopril) 10 Mg Tab, 10 MG PO DAILY, (Reported) Mirtazapine (Remeron) 15 Mg Tab, 15 MG PO QHS, (Reported) Pravastatin Sodium (Pravastatin Sodium) 80 Mg Tab, 80 MG PO QHS, (Reported) Scheduled PRN Hydroxyzine HCl (Hydroxyzine HCl) 25 Mg Tab, 25 MG PO Q6H PRN for ANXIETY, (Reported) Ondansetron HCl (Ondansetron HCl) 4 Mg Tab, 4 MG PO Q6HP PRN for NAUSEA OR VO MITING Allergies Coded Allergies: Corticosteroids (Unverified Allergy, Mild, rash, 06/10/17) Latex (Verified Allergy, Mild, 01/09/17) Penicillins (Verified Allergy, Unknown, 01/09/17) Penicillins Cross Reactors (Verified Allergy, Unknown, 01/09/17) Jose Peña MD May 30, 2018 18:38
[2018-05-30 19:30] VITALS: BP 155/83
== END 2018-05-30 19:55 | disposition home or self-care (01) ==
LOC: EDBD 15:37 → M ED 15:37 → M ED INP 22:46 → M MS5PR 05-30 00:32
PROVIDERS: ADMIT Internal Medicine; ATTEND Family Medicine
DX: R10.12 Left upper quadrant pain (principal); E03.9 Hypothyroidism, unspecified; I12.9 Hypertensive chronic kidney disease with stage 1 through stage 4 chronic kidney disease, or unspecified chronic kidney disease; N18.3 Chronic kidney disease, stage 3 (moderate); G47.09 Other insomnia; R91.1 Solitary pulmonary nodule; E78.5 Hyperlipidemia, unspecified; K57.90 Diverticulosis of intestine, part unspecified, without perforation or abscess without bleeding; K80.20 Calculus of gallbladder without cholecystitis without obstruction; N28.1 Cyst of kidney, acquired; Z79.899 Other long term (current) drug therapy; Z88.0 Allergy status to penicillin; Z91.040 Latex allergy status; Z88.8 Allergy status to other drugs, medicaments and biological substances; Z12.11 Encounter for screening for malignant neoplasm of colon
CPT/HCPCS: 36415; 51701; 71275; 74177; 80048; 80076; 81001; 82270; 82550; 82553; 83690; 84484; 85025; 90670; 93005; 93041; 96374; 96375; 99285; G0009; G0378; J1885; J2270; Q9967

== ENCOUNTER → 2018-06-14 | Outpatient (REF) | payer MEDICARE, MEDICAID ==
[~2018-06-14] MED LIST changes: +AMLO5TAB6 PO; +FLON1SPR NARES; +LISI10TA4 PO; +MIRT1TAB PO; +MIRT30TA3 PO; +OMEP40CA2 PO; +ONDA4TAB5 PO; +REME15TA PO; +VIIB10TA PO; +VIIB40TA PO
[2018-06-14 13:23] LABS: ALBUMIN 3.8 GM/DL (3.2-5.2); BILIRUBIN,TOTAL 0.3 MG/DL (0.2-1.0); CREATININE FOR GFR 1.39 MG/DL (0.55-1.30); GLOMERULAR FILTRATION RATE 40.3 (>45); POTASSIUM SERUM 4.4 MEQ/L (3.5-5.1)
== END ==
LOC: M SFHCPLAZ 10:58
PROVIDERS: ATTEND Physician Assistant Medical
DX: N18.3 Chronic kidney disease, stage 3 (moderate) (principal)

== ENCOUNTER 2018-06-15 14:25 | Inpatient (IN) | payer MEDICARE, MEDICAID ==
[~2018-06-15] VITALS: Ht 167.6 cm; Wt 76.2 kg
[~2018-06-15 14:25] MED LIST changes: -AMLO5TAB6 PO; -FLON1SPR NARES; -MIRT1TAB PO; -MIRT30TA3 PO; -OMEP40CA2 PO; -VIIB40TA PO
[2018-06-15] MEDS ORDERED: NS 1,000 ML IV SCH (14:37)
[2018-06-15] MEDS ORDERED: OMEP40CA2 PO (14:51)
[2018-06-15] MEDS ORDERED: AMLO5TAB6 PO (14:51)
[2018-06-15] MEDS ORDERED: ONDANSETRON 4MG/2ML VIAL (J2405) IV ONE (15:00)
[2018-06-15] MEDS: MORPHINE 4 MG/ML 1ML VIAL/SYRINGE (J2270) IV PRN ×2 (15:17→15:53)
[2018-06-15 15:23] LABS: BASO % 0.6 % (0.0-1.0); EOS # 0.1 10^3/uL (0.0-0.50); EOS % 1.8 % (0.0-3.0); HEMATOCRIT 38.4 % (36.0-47.0); HEMOGLOBIN 12.5 g/dl (12.0-15.5); LYMPH # 1.6 10^3/uL (1.5-4.5); LYMPH % 22.3 % (24.0-44.0); MEAN CORPUSCULAR HEMOGLOBIN 28.2 pg (27.0-33.0); MEAN CORPUSCULAR HGB CONC 32.6 g/dl (32.0-36.5); MEAN CORPUSCULAR VOLUME 86.7 fl (80.0-96.0); MONO # 0.5 10^3/uL (0.0-0.8); MONO % 6.7 % (0.0-5.0); NEUTROPHILS % 68.2 % (36.0-66.0); PLATELET COUNT, AUTOMATED 336 10^3/uL (150-450); RED BLOOD COUNT 4.43 10^6/uL (4.00-5.40); WHITE BLOOD COUNT 7.3 10^3/uL (4.0-10.0)
[2018-06-15 15:51] LABS: ALBUMIN 3.4 GM/DL (3.2-5.2); ALT/SGPT 18 U/L (12-78); BILIRUBIN,DIRECT < 0.1 MG/DL (0.0-0.2); BILIRUBIN,TOTAL 0.3 MG/DL (0.2-1.0); BLOOD UREA NITROGEN 22 MG/DL (7-18); CALCIUM LEVEL 10.6 MG/DL (8.8-10.2); CARBON DIOXIDE LEVEL 27 MEQ/L (21-32); CHLORIDE LEVEL 105 MEQ/L (98-107); CREATININE FOR GFR 1.33 MG/DL (0.55-1.30); GLOMERULAR FILTRATION RATE 42.4 (>45); GLUCOSE, FASTING 80 MG/DL (70-100); LIPASE 2250 U/L (73-393); POTASSIUM SERUM 4.7 MEQ/L (3.5-5.1); SODIUM LEVEL 138 MEQ/L (136-145); TOTAL PROTEIN 6.9 GM/DL (6.4-8.2)
[2018-06-15] MEDS ORDERED: ONDA4TAB5 PO (15:56)
[2018-06-15] MEDS ORDERED: MIRT30TA3 PO (16:08)
[2018-06-15] MEDS ORDERED: VIIB40TA PO (16:24)
[2018-06-15] MEDS ORDERED: MIRT1TAB PO (16:24)
[2018-06-15] MEDS ORDERED: FLON1SPR NARES (16:25)
[2018-06-15] MEDS ORDERED: ACETAMINOPHEN TAB 650MG DOSE (2X325MG) PO PRN (16:30)
[2018-06-15] MEDS ORDERED: MORPHINE 4 MG/ML 1ML VIAL/SYRINGE (J2270) IV PRN ×2 (16:30)
--- NOTE | 2018-06-15 16:42 | REP ---
RIGHT UPPER QUADRANT ULTRASOUND: Real-time sonographic evaluation of the right upper quadrant performed. The study is limited due to tenderness and body habitus. A gallstone is seen in the gallbladder. Patient was tender at that location. There is no gallbladder wall thickening or pericholecystic fluid. There is no evidence of intrahepatic or extrahepatic biliary dilatation, common bile duct measuring 5 mm. Liver and pancreas demonstrate no gross mass, pancreas not optimally seen due to overlying bowel gas. The right kidney demonstrates no hydronephrosis or nephrolithiasis, normal size 10.1 cm in length. There are tiny echogenic foci in the gallbladder wall with distal linear artifact compatible with adenomyomatosis. IMPRESSION: Gallstone in the gallbladder. Mild gallbladder wall adenomyomatosis. No gallbladder wall thickening, free fluid or biliary dilatation. Patient was tender at the site of the gallbladder. Electronically Signed by Anuj Humphreys MD 06/16/2018 07:55 P
[2018-06-15] MEDS: LR 1,000 ML IV SCH (16:46)
[2018-06-15] MEDS ORDERED: IPRATROPIUM 0.5MG/ALBUTEROL 2.5MG INH SOL UD 3ML (DUONEB)(J7620) As Ordered ONE (17:11)
[2018-06-15] MEDS ORDERED: ALBUTEROL SULFATE 2.5 MG/0.5 ML INH NEB SOLN As Ordered ONE (17:12)
--- NOTE | 2018-06-15 18:44 | ECGEPIP ---
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
[2018-06-15] MEDS: ONDANSETRON 4MG/2ML VIAL (J2405) IV PRN (19:00)
[2018-06-15 19:03] VITALS: BP 161/82
[2018-06-15] MEDS: FENOFIBRATE 145 MG TAB (TRICOR) PO SCH (20:40)
[2018-06-15] MEDS: **hydrALAZINE** 10 MG TAB PO SCH (20:41)
[2018-06-15] MEDS: MIRTAZAPINE 15 MG TAB PO SCH (20:41)
[2018-06-15] MEDS: PRAVASTATIN 20 MG TAB PO SCH (20:41)
[2018-06-15] MEDS ORDERED: MIRTAZAPINE 7.5MG PER 1/2 TABLET PO SCH (21:00)
[2018-06-15 22:00] VITALS: BP 138/76
[2018-06-16] VITALS (7 sets, daily range): BP systolic 103–177; BP diastolic 58–83
--- NOTE | 2018-06-16 03:05 | HPEPDOC ---
General Surgery H&P Date of Admission Jun 15, 2018 Attending Physician: DIMPLE MÁQRUEZ MD History and Physical CHIEF COMPLAINT: Abdominal pain HISTORY OF PRESENT ILLNESS: Patient is a 68-year-old female who presented herself to the emergency room today with about a 1 day history of sudden onset of midepigastric abdominal pain radiating to her right upper quadrant area associated nausea and there was she was seen in emergency room a couple episodes of vomiting. Patient reports symptoms started last night and persisted through the night with increasing midepigastric abdominal pain. Of note she was briefly admitted the end of May with unexplained upper abdominal left-sided abdominal pain, chest pain the etiology of which was inserted at that time. She had normal lipase at that time. Workup reveals evid ence for gallstones. She reports that the pain was almost similar though less in severity back in May. ALLERGIES: Please see below. HOME MEDICATIONS: Please see below. PAST MEDICAL HISTORY: 1. Hypothyroidism. 2. Anxiety 3. Depression 4. Hypothyroidism 5. Insomnia 6. Allergic rhinitis 7. Chronic kidney disease 8. Hypertension 9. History of aortic abdominal aneurysm status post endovascular repair. PAST SURGICAL HISTORY: 1. Endovascular repair of AAA PERSONAL/SOCIAL HISTORY: Denies smoking, alcohol use, or recreational drug use. REVIEW OF SYSTEMS: GENERAL: Patient reports was in her usual state of health. 2 last night. Denies any sick contacts. Was previously admitted from May 30 2 06/01/2018 for abdominal pain. HEENT: Denies blurred vision and double vision. Denies ear symptoms. Denies hoarseness. NECK: Denies any neck pain. CARDIOVASCULAR: Denies chest pain and palpitations. Denies any history of myocardial infarction MUSCULOSKELETAL: Denies arthralgias, back pain and thrombophlebitis. SKIN: Denies rash. NEUROLOGIC: Denies headache, stroke and transient ischemic attack. PSYCHIATRIC: Reports history of anxiety and depression. ENDOCRINE: Reports history of thyroid disease. HEMATOLOGY/ONCOLOGY: Denies any bleeding or clotting disorder. Patient not on any anticoagulant HEART: Denies any chest pains, palpitations, paroxysmal dyspnea, orthopnea. PULMONARY: Denies chronic cough, dyspnea and wheezing. GASTROINTESTINAL: Denies rectal bleeding, family history of colon cancer, constipation, diarrhea, dysphagia, heartburn and jaundice. GENITOURINARY: Denies dysuria, frequency, hematuria and nocturia. ENDOCRINE: Denies polydipsia, polyphagia, polyuria, heat or cold intolerance. INFECTIOUS: Denies any recent upper respiratory tract infection, UTI, need for use of antibiotics. NUTRITION: Reports fair appetite. PHYSICAL EXAMINATION: VITAL SIGNS: Please see below. GENERAL APPEARANCE: Patient seen at bedside, she was laying flat on the bed with an ice pack on her not complaining of headaches, mildly uncomfortable from the headache, abdominal pain and nausea. HEENT: Normocephalic, atraumatic. [place] palpebral conjunctivae. Anicteric sclerae. Lips moist. CHEST: No chest wall abnormalities. Normal respiratory motion/effort. NECK: Supple. No thyromegaly. No lymphadenopathies. LUNGS: Lung sounds are clear to auscultation bilaterally. No wheezing appreci ated. HEART: No chest wall abnormalities. Heart rate and rhythm are regular with no murmurs. ABDOMEN: [Abdomen is obese, round, soft, mildly distended. No obvious herniations. No previous surgical scars. She is moderately tender over the epigastric area and right upper quadrant area with mild voluntary guarding. She is nontender in the lower part of her abdomen. She has more prominent upper ab dominal distention and lower abdominal distention. Tympanitic to percussion. SKIN: Warm and dry. EXTREMITIES: Extremities have no deformities. No edema identified. NEUROLOGICAL: Awake, alert, oriented. ANCILLARIES: . LABORATORY DATA: Please see below. MICROBIOLOGY: Please see below. IMAGING: Ultrasound abdomen Gallstone in the gallbladder. Mild gallbladder wall adenomyomatosis. No gallbladder wall thickening, free fluid or biliary dilatation. Patient was tender at the site of the gallbladder. . IMPRESSION AND PLAN: Abdominal pain secondary to acute biliary pancreatitis Patient symptoms consistent with acute pancreatitis most likely related to presence of gallstones in her gallbladder. She is also tender on the right upper quadrant area with distention of her gallbladder. She does not appear to be severely dehydrated and clinical exams likewise her and her laboratories. She has mild elevation of her BUN and creatinine but this is actually improved from the previous laboratories done last May during her past admission. Her lipase is 2250. Her LFTs are normal. I will admit her to my service give her IV hydration and pain control as standards for treatment for presumably non-complicated acute biliary pancreatitis. I will continue to monitor her course. Secondary issue is the presence of gallstones in the gallbladder which is the cause of her pancreatitis. I explained to her that depending on the course of the pancreatitis, I would evaluate her for suitability of performing cholecystectomy during this admission. If the inflammatory response is self- limited and she improves within 24-48 hours, he typically would consider performing cholecystectomy before sending her home to prevent recurrence of the pancreatitis. If the course of the pancreatitis is prolonged or in full MODERATE to severe inflammatory response especially if there is presence of necrosis of the pancreas, multiple fluid collections or severe inflammatory response related to the pancreatitis, most likely we will hold off on performing cholecystectomy until she is recovered from the pancreatitis typically bring her back to the hospital for an interval cholecystectomy about 4-6 weeks after her discharge. Vital Signs Vital Signs Date Time Temp Pulse Resp B/P (MAP) Pulse Ox O2 Delivery O2 Flow Rate FiO2 06/15/18 22:00 97.8 72 18 138/76 (96) 95 Room Air I&Os I&O- Last 24 Hours up to 6 AM 06/16/18 05:59 Intake Total 300 ml Output Total 250 ml Balance 50 ml Laboratory Data Labs 24H Laboratory Tests 2 06/15/18 15:10: Immature Granulocyte % (Auto) 0.4, White Blood Count 7.3, Red Blood Count 4.43, Hemoglobin 12.5, Hematocrit 38.4, Mean Corpuscular Volume 86.7, Mean Corpuscular Hemoglobin 28.2, Mean Corpuscular Hemoglobin Concent 32.6, Red Cell Distribution Width 13.9, Platelet Count 336, Neutrophils (%) (Auto) 68.2H, Ly mphocytes (%) (Auto) 22.3L, Monocytes (%) (Auto) 6.7H, Eosinophils (%) (Auto) 1.8, Basophils (%) (Auto) 0.6, Neutrophils # (Auto) 5.0, Lymphocytes # (Auto) 1.6, Monocytes # (Auto) 0.5, Eosinophils # (Auto) 0.1, Basophils # (Auto) 0.0, Nucleated Red Blood Cells % (auto) 0.0, Anion Gap 6L, Glomerular Filtration Rate 42.4L, Calcium Level 10.6H, Aspartate Amino Transf (AST/SGOT) 23, Alanine Aminotransferase (ALT/SGPT) 18, Alkaline Phosphatase 45, Total Bilirubin 0.3, Direct Bilirubin < 0.1, Total Protein 6.9, Albumin 3.4, Albumin/Globulin Ratio 0.97L, Lipase 2250H CBC/BMP Laboratory Tests 06/15/18 15:10 Red Blood Count 4.43, Mean Corpuscular Volume 86.7, Mean Corpuscular Hemoglobin 28.2, Mean Corpuscular Hemoglobin Concent 32.6, Red Cell Distribution Width 13.9, Neutrophils (%) (Auto) 68.2 H, Lymphocytes (%) (Auto) 22.3 L, Monocytes (%) (Auto) 6.7 H, Eosinophils (%) (Auto) 1.8, Basophils (%) (Auto) 0.6, Neutrophils # (Auto) 5.0, Lymphocytes # (Auto) 1.6, Monocytes # (Auto) 0.5, Eosinophils # (Auto) 0.1, Basophils # (Auto) 0.0 Home Medications Scheduled (Viibryd) 40 Mg Tab, 40 MG PO DAILY, (Reported) Amlodipine Besylate (Amlodipine Besylate) 5 Mg Tab, 5 MG PO DAILY, (Reported) Bupropion HCl (Bupropion HCl Xl) 300 Mg Tab, 300 MG PO DAILY, (Reported) Fenofibrate (Fenofibrate) 145 Mg Tab, 145 MG PO QHS, (Reported) Fluticasone Propionate (Flonase Allergy Relief) 50 Mcg/Act Spr, 2 SPRAY NARES DAILY, (Reported) Hydralazine HCl (Hydralazine HCl) 10 Mg Tab, 10 MG PO BID, (Reported) Levothyroxine Sodium (Synthroid) 25 Mcg Tab, 25 MCG PO DAILY, (Reported) Lisinopril (Lisinopril) 10 Mg Tab, 10 MG PO DAILY, (Reported) Omeprazole (Omeprazole) 40 Mg Cap, 40 MG PO BID, (Reported) Pravastatin Sodium (Pravastatin Sodium) 80 Mg Tab, 80 MG PO QHS, (Reported) Scheduled PRN Acetaminophen/Hydrocodone ([place], Anexsia 5/325) 1 Tab Tab, 1-2 TAB PO Q4HP PRN for MODERATE PAIN (PS 5-7) Hydroxyzine HCl (Hydroxyzine HCl) 25 Mg Tab, 25 MG PO Q6H PRN for ANXIETY, (Reported) Metoclopramide HCl (Reglan) 10 Mg Tab, 10 MG PO Q6H PRN for NAUSEA Miscellaneous Medications Suvorexant (Belsomra) 5 Mg Tab, (Reported) Allergies Coded Allergies: Corticosteroids (Unverified Allergy, Mild, rash, 06/10/17) Latex (Verified Allergy, Mild, 01/09/17) Penicillins (Verified Allergy, Unknown, 01/09/17) Penicillins Cross Reactors (Verified Allergy, Unknown, 01/09/17) DIMPLE MÁRQUEZ MD Jun 16, 2018 03:05
[2018-06-16] MEDS: ONDANSETRON 4MG/2ML VIAL (J2405) IV PRN (05:29)
[2018-06-16] MEDS: LR 1,000 ML IV SCH ×3 (05:30→16:30)
[2018-06-16] MEDS: LEVOTHYROXINE 25MCG TABLET (0.025MG) PO SCH (05:30)
[2018-06-16 06:50] LABS: HEMATOCRIT 35.9 % (36.0-47.0); HEMOGLOBIN 11.6 g/dl (12.0-15.5); MEAN CORPUSCULAR HEMOGLOBIN 28.4 pg (27.0-33.0); MEAN CORPUSCULAR HGB CONC 32.3 g/dl (32.0-36.5); MEAN CORPUSCULAR VOLUME 87.8 fl (80.0-96.0); PLATELET COUNT, AUTOMATED 341 10^3/uL (150-450); RED BLOOD COUNT 4.09 10^6/uL (4.00-5.40); WHITE BLOOD COUNT 7.2 10^3/uL (4.0-10.0)
[2018-06-16 07:17] LABS: ALBUMIN 3.1 GM/DL (3.2-5.2); BILIRUBIN,TOTAL 0.3 MG/DL (0.2-1.0); CALCIUM LEVEL 10.4 MG/DL (8.8-10.2); CREATININE FOR GFR 1.39 MG/DL (0.55-1.30); GLOMERULAR FILTRATION RATE 40.3 (>45); POTASSIUM SERUM 4.3 MEQ/L (3.5-5.1); TOTAL PROTEIN 6.8 GM/DL (6.4-8.2)
[2018-06-16] MEDS: **hydrALAZINE** 10 MG TAB PO SCH ×2 (08:47→20:23)
[2018-06-16] MEDS: FLUTICASONE PROP 0.05% NASAL SPRAY 16 GM (FLONASE) NARES SCH (08:47)
[2018-06-16] MEDS: amLODIPine 5 MG TAB PO SCH (08:47)
[2018-06-16] MEDS: LISINOPRIL 10 MG TAB PO SCH (08:48)
[2018-06-16] MEDS: hydrOXYzine 25 MG TAB PO PRN (08:48)
[2018-06-16] MEDS: NORCO, ANEXSIA 5/325MG TABLET (HYDROcodone/ACETAMINOPHEN) PO PRN ×2 (08:48→21:24)
[2018-06-16] MEDS: buPROPion **XL** TABLET 150MG (WELLBUTRIN XL) PO SCH (08:49)
--- NOTE | 2018-06-16 10:33 | IPNPDOC ---
Subjective General Date/Time Seen The patient was seen on 06/16/18 at 07:24. Subject Chief Complaint/History The patient is a 68-year-old female admitted with a reason for visit of Biliary Acute Pancreatitis. Patient reports pain better this morning, he reports minimal discomfort. She reports some headaches from the morphine. She denies any nausea. Current Medications Current Medications Current Medications Acetaminophen (Tylenol Tab) 650 mg Q4HP PRN PO MILD PAIN or TEMP > 101 Last administered on 06/16/18at 05:29; Start 06/15/18 at 16:30 Acetaminophen/ Hydrocodone Bitart ([place], Anexsia 5/325) 1 tab Q4HP PRN PO MODERATE PAIN (PS 5-7); Start 06/15/18 at 16:30 Acetaminophen/ Hydrocodone Bitart ([place], Anexsia 5/325) 2 tab Q6HP PRN PO SEVERE PAIN (PS 8-10); Start 06/15/18 at 16:30 Amlodipine Besylate (Norvasc) 5 mg DAILY PO ; Start 06/16/18 at 09:00 Bupropion HCl (Wellbutrin Xl) 300 mg DAILY PO ; Start 06/16/18 at 09:00 Fenofibrate (Tricor) 145 mg QHS PO Last administered on 06/15/18at 20:40; Start 06/15/18 at 21:00 Fluticasone Propionate (Flonase 0.05% Nasal [place]) 2 spray DAILY NARES ; Start 06/16/18 at 09:00 Home Med (Med Rec Complete!) ASDIRECTED XX ; Start 06/15/18 at 16:30; Stop 06/15/18 at 16:30; Status DC Hydralazine HCl (Apresoline) 10 mg BID PO Last administered on 06/15/18at 20:41; Start 06/15/18 at 21:00 Hydroxyzine HCl (Atarax) 25 mg Q6H PRN PO ANXIETY; Start 06/15/18 at 16:30 Lactated Ringer's 1,000 ml @ 125 mls/hr Q8H IV Last administered on 06/16/18at 05:30; Start 06/15/18 at 16:30 Levothyroxine Sodium (Synthroid) 25 mcg DAILY@0600 PO Last administered on 06/16/18at 05:30; Start 06/16/18 at 06:00 Lisinopril (Prinivil) 10 mg DAILY PO ; Start 06/16/18 at 09:00 Mirtazapine (Remeron) 15 mg QHS PO ; Start 06/15/18 at 21:00; Stop 06/15/18 at 21:00; Status DC Mirtazapine (Remeron) 45 mg QHS PO Last administered on 06/15/18 20:41; Start 06/15/18 at 21:00 Morphine Sulfate (Morphine Sulfate Inj) 4 mg Q2HP PRN IV SEVERE PAIN (PS 8-10) Last administered on 06/15/18 16:45; Start 06/15/18 at 16:30 Morphine Sulfate (Morphine Sulfate Inj) 4 mg Q30M PRN IV SEVERE PAIN (PS 8-10) Last administered on 06/15/18 15:53; Start 06/15/18 at 15:00; Stop 06/15/18 at 16:15; Status DC Morphine Sulfate (Morphine Sulfate Inj) 4 mg Q30M PRN IV SEVERE PAIN (PS 8-10); Start 06/15/18 at 16:30 Ondansetron HCl (ZOFRAN INJection) 4 mg Q6HP PRN IV NAUSEA OR VOMITING Last administered on 06/16/18 05:29; Start 06/15/18 at 19:00 Pravastatin Sodium (Pravachol) 80 mg QHS PO Last administered on 06/15/18 20:41; Start 06/15/18 at 21:00 Sodium Chloride 1,000 ml @ 100 mls/hr Q10H IV Last administered on 06/15/18 15:15; Start 06/15/18 at 14:37; Stop 06/15/18 at 18:50; Status DC Allergies Coded Allergies: Corticosteroids (Unverified Allergy, Mild, rash, 06/10/17) Latex (Verified Allergy, Mild, 01/09/17) Penicillins (Verified Allergy, Unknown, 01/09/17) Penicillins Cross Reactors (Verified Allergy, Unknown, 01/09/17) Objective Physical Examination Examination GENERAL APPEARANCE: Comfortable. SKIN: Warm and moist. HEENT: Normocephalic, atraumatic. [place] palpebral conjunctiva, anicteric sclerae. Lips and mucosa appear moist. NECK: Supple, no thyromegaly. No obvious jugular venous distention. LUNGS: Clear to auscultation bilaterally. No wheezing appreciated. HEART: No chest wall abnormalities. Regular rate and rhythm with no murmurs appreciated. ABDOMEN: Abdomen is obese, soft, round, nondistended. Minimally tender on palpation only in deep palpation at the epigastric and right upper quadrant area without any guarding. EXTREMITIES: Extremities have no deformities. No edema identified. Vital Signs Vital Signs Date Time Temp Pulse Resp B/P (MAP) Pulse Ox O2 Delivery O2 Flow Rate FiO2 06/16/18 05:30 97.9 82 18 166/82 (110) 98 Room Air I&Os I&O- Last 24 Hours up to 6 AM 06/16/18 06:00 Intake Total 1800 ml Output Total 800 ml Balance 1000 ml Laboratory Data Labs 24H Laboratory Tests 2 06/15/18 15:10: Immature Granulocyte % (Auto) 0.4, White Blood Count 7.3, Red Blood Count 4.43, Hemoglobin 12.5, Hematocrit 38.4, Mean Corpuscular Volume 86.7, Mean Corpuscular Hemoglobin 28.2, Mean Corpuscular Hemoglobin Concent 32.6, Red Cell Distribution Width 13.9, Platelet Count 336, Neutrophils (%) (Auto) 68.2H, Lymphocytes (%) (Auto) 22.3L, Monocytes (%) (Auto) 6.7H, Eosinophils (%) (Auto) 1.8, Basophils (%) (Auto) 0.6, Neutrophils # (Auto) 5.0, Lymphocytes # (Auto) 1.6, Monocytes # (Auto) 0.5, Eosinophils # (Auto) 0.1, Basophils # (Auto) 0.0, Nucleated Red Blood Cells % (auto) 0.0, Anion Gap 6L, Glomerular Filtration Rate 42.4L, Calcium Level 10.6H, Aspartate Amino Transf (AST/SGOT) 23, Alanine Aminotransferase (ALT/SGPT) 18, Alkaline Phosphatase 45, Total Bilirubin 0.3, Direct Bilirubin < 0.1, Total Protein 6.9, Albumin 3.4, Albumin/Globulin Ratio 0.97L, Lipase 2250H 06/16/18 06:29: Nucleated Red Blood Cells % (auto) 0.0, Anion Gap 5L, Glomerular Filtration Rate 40.3L, Calcium Level 10.4H, Aspartate Amino Transf (AST/SGOT) 21, Alanine Aminotransferase (ALT/SGPT) 19, Alkaline Phosphatase 45, Total Bilirubin 0.3, Total Protein 6.8, Albumin 3.1L, Albumin/Globulin Ratio 0.84L, Lipase 157, Blood Urea Nitrogen 21H, Creatinine 1.39H, Sodium Level 139, Potassium Level 4.3, Chloride Level 103, Carbon Dioxide Level 31 CBC/BMP Laboratory Tests 06/15/18 15:10 Red Blood Count 4.43, Mean Corpuscular Volume 86.7, Mean Corpuscular Hemoglobin 28.2, Mean Corpuscular Hemoglobin Concent 32.6, Red Cell Distribution Width 13.9, Neutrophils (%) (Auto) 68.2 H, Lymphocytes (%) (Auto) 22.3 L, Monocytes (%) (Auto) 6.7 H, Eosinophils (%) (Auto) 1.8, Basophils (%) (Auto) 0.6, Neutrophils # (Auto) 5.0, Lymphocytes # (Auto) 1.6, Monocytes # (Auto) 0.5, Eosinophils # (Auto) 0.1, Basophils # (Auto) 0.0 06/16/18 06:29 Red Blood Count 4.09, Mean Corpuscular Volume 87.8, Mean Corpuscular Hemoglobin 28.4, Mean Corpuscular Hemoglobin Concent 32.3, Red Cell Distribution Width 13.9, Calcium Level 10.4 H, Aspartate Amino Transf (AST/SGOT) 21, Alanine Aminotransferase (ALT/SGPT) 19, Alkaline Phosphatase 45, Total Bilirubin 0.3, Total Protein 6.8, Albumin 3.1 L Impression Acute gallstone pancreatitis Her labs shows resolution of the lipase elevation, normal LFTs. Her epigastric discomfort has markedly improved. At this point I think we can safely bring her to the OR for laparoscopic cholecystectomy. I consented her for the surgery. Full discussion of the risks and benefits of performing laparoscopic ch olecystectomy likewise her other options including nonsurgical was discussed with the patient including risks for bile duct injury and bile leakage and possible conversion to open surgery. Plan / VTE VTE Prophylaxis Ordered?: Yes DIMPLE MÁRQUEZ MD Jun 16, 2018 07:24
[2018-06-16] MEDS ORDERED: CIPROFLOXACIN 400 MG in APPROPRIATE DILUENT 1 EA IV ONE (11:00)
[2018-06-16] MEDS ORDERED: PROMETHAZINE INJ 25 MG/ML VIAL (J2550) IV PRN (11:15)
[2018-06-16] MEDS ORDERED: CIPROFLOXACIN/D5W 400 MG/200 ML BAG (J0744) As Ordered ONE (15:27)
[2018-06-16] MEDS ORDERED: BUPIVACAINE HCL 0.25% 30 ML VIAL As Ordered ONE (16:13)
[2018-06-16] MEDS ORDERED: LIDOCAINE 1% SDV INJ 30 ML VIAL As Ordered ONE (16:13)
[2018-06-16] MEDS ORDERED: dexameTHASONE 4 MG/ML 1ML VIAL (J1100) As Ordered ONE ×2 (16:36→17:14)
[2018-06-16] MEDS ORDERED: fentaNYL 100 MCG/2 ML INJECTION (J3010) As Ordered ONE ×2 (17:14→17:36)
[2018-06-16] MEDS ORDERED: SUGAMMADEX SODIUM 500 MG/5 ML VIAL (BRIDION) As Ordered ONE (17:14)
[2018-06-16] MEDS ORDERED: PROPOFOL 200 MG/20 ML VIAL As Ordered ONE (17:14)
[2018-06-16] MEDS ORDERED: ONDANSETRON 4MG/2ML VIAL (J2405) As Ordered ONE ×2 (17:14→17:36)
[2018-06-16] MEDS ORDERED: LIDOCAINE 2% INJ 100 MG/5 ML SDV (FOR ANES.) As Ordered ONE (17:14)
[2018-06-16] MEDS ORDERED: MIDAZOLAM INJ 2 MG/2 ML VIAL (J2250) As Ordered ONE (17:14)
[2018-06-16] MEDS ORDERED: ROCURONIUM BROMIDE 50 MG/5 ML VIAL As Ordered ONE (17:14)
--- NOTE | 2018-06-16 17:22 | POST-OPPD ---
Postoperative Procedure Note Date Of Procedure: Jun 16, 2018 PREOPERATIVE DIAGNOSIS: gallstone pancreatitis, cholelithiasis POSTOPERATIVE DIAGNOSIS: gallstone pancreatitis, cholelithiasis FINDINGS: distended, thin walled gallbladder, multiple stones at the neck of the gallbladder, stone at the cystic duct, normal sized cystic duct. PROCEDURE: Laparoscopic Cholecystectomy SURGEON: Oni Garcia MD CRATE TIER: Daniel Lynn MD ANESTHESIA: General Anesthesia SPECIMENS: Gallbladder ESTIMATED BLOOD LOSS: 10 mLs DRAINS: none COMPLICATIONS: none POSTOPERATIVE CONDITION: stable, to PACU ONI GARCIA MD Jun 16, 2018 17:22
--- NOTE | 2018-06-16 17:23 | ROOPDOC ---
[facility] Report Of Operation Report of Operation DATE OF PROCEDURE: 06/16/18 PREOPERATIVE DIAGNOSIS: gallstone pancreatitis, cholelithiasis POSTOPERATIVE DIAGNOSIS: gallstone pancreatitis, cholelithiasis FINDINGS: distended, thin walled gallbladder, multiple stones at the neck of the gallbladder, stone at the cystic duct, normal sized cystic duct. PROCEDURE: Laparoscopic Cholecystectomy SURGEON: Oni Garcia MD DIRECTOR ONLINE MARKETING: Daniel Lynn MD ANESTHESIA: General Anesthesia SPECIMENS: Gallbladder ESTIMATED BLOOD LOSS: 10 mLs DRAINS: none COMPLICATIONS: none POSTOPERATIVE CONDITION: stable, to PACU DESCRIPTION OF PROCEDURE: Patient is given a dose of ciprofloxacin and metronidazole IV for surgical prophylaxis. She is brought to the OR today for planned laparoscopic cholecystectomy for biliary pancreatitis. She was brought to the operating room, laid supine on the table, compression boots on both lower legs placed for DVT prophylaxis. General endotracheal anesthesia started. Her abdomen then prepped and draped in usual sterile fashion. Surgical timeout was performed prior to starting surgery. Entry into the abdomen done through an incision above the umbilicus. A Veress needle was inserted with a controlled fashion. CO2 insufflation started to pressure 15 mmHg. Using the same incision a 5 mm Visiport was placed under direct vision laparoscope. The area underneath the insertion site was inspected and no injury found. She was then placed in steep reverse Trendelenburg. Her right side was tilted up to further expose the gallbladder. Under direct vision a 11 mm epigastric port and Two 5 mm working ports placed along the right subcostal line. Operative findings: Her liver is noted to be smooth in contour mildly enlarged, no nodularities or lesions found. Her gallbladder is mildly thickened, moderately distended. There is a small amount of gallbladder wall edema. She has free-floating stones in the neck of the gallbladder. During dissection she was also found to have stones at the proximal cystic duct which was milked back into the gallbladder. The cystic duct was normal in size. The gallbladder was decompressed using an aspirating needle attached to a 60 mL syringe with aspiration of clear fluid consistent with hydrops of the gallbladder. The fundus of the gallbladder was grasped and the gallbladder was elevated superiorly exposing the neck of the gallbladder. The peritoneum overlying the area was opened up and dissected free both anteriorly and posteriorly to help with retraction of the gallbladder. The hepatocystic triangle was approached and dissected using a [place] and instrument. The cyst ic duct was identified coming off from the next gallbladder this was circumferentially dissected. The cystic artery was identified in its usual position medially behind a small lymph node of [place]. This was similarly circumferentially dissected off surrounding adipose tissue. We continued posterior dissection proximally at the next gallbladder until a critical view of safety was achieved whereby only the previously identified duct and artery coursing through the neck the gallbladder. At this point the cystic artery was clipped 4 times and divided. The proximal portion of the takeoff of the cystic duct and the gallbladder appears distended and on palpation I could feels stones in the cystic duct. I then milked the stones back into the gallbladder. After again checking her anatomy and verifying that the previously identified cystic duct, this was also clipped 4 times and divided. The rest of the gallbladder was then dissected free of the gallbladder bed using Bovie cautery. There was minimal bleeding at the lateral gallbladder attachments to the liver capsule this was easily controlled with Bovie cautery. The gallbladder was then placed in an Endo Catch bag and retrieved outside through the epigastric port site. After re-insufflation and inspected the clips and noted this to be in place. No further bleeding noted. No bile leakage noted. The abdomen was deflated all ports were removed. The epigastric fascial defect repaired with 0 Vicryl in a mattress fashion. Rest of the skin incisions closed with 4-0 Monocryl in subcuticular fashion. Steri-Strips and gauze dressings were placed, the wound. Patient was informed they awakened, extubated and brought to recovery room stable ONI GARCIA MD Jun 16, 2018 17:23
[2018-06-16] MEDS: fentaNYL 100 MCG/2 ML INJECTION (J3010) IV PRN ×4 (17:41→17:58)
[2018-06-16] MEDS ORDERED: PERCOCET 5MG/325MG TAB PO PRN (17:45)
[2018-06-16] MEDS ORDERED: LR 1,000 ML IV SCH (17:45)
[2018-06-16] MEDS ORDERED: ONDANSETRON 4MG/2ML VIAL (J2405) IV PRN (17:45)
[2018-06-16] MEDS ORDERED: PERCOCET 5MG/325MG TAB As Ordered ONE (18:12)
[2018-06-16] MEDS: PRAVASTATIN 20 MG TAB PO SCH (20:24)
[2018-06-16] MEDS: FENOFIBRATE 145 MG TAB (TRICOR) PO SCH (21:24)
[2018-06-16] MEDS: MIRTAZAPINE 15 MG TAB PO SCH (21:24)
[2018-06-17] MEDS: LR 1,000 ML IV SCH ×2 (00:05→08:13)
[2018-06-17 02:15] VITALS: BP 114/58
[2018-06-17] MEDS: LEVOTHYROXINE 25MCG TABLET (0.025MG) PO SCH (05:56)
[2018-06-17] MEDS: NORCO, ANEXSIA 5/325MG TABLET (HYDROcodone/ACETAMINOPHEN) PO PRN ×3 (06:03→18:19)
[2018-06-17 06:15] VITALS: BP 148/70
[2018-06-17 06:22] LABS: HEMATOCRIT 33.1 % (36.0-47.0); HEMOGLOBIN 10.7 g/dl (12.0-15.5); MEAN CORPUSCULAR HEMOGLOBIN 28.3 pg (27.0-33.0); MEAN CORPUSCULAR HGB CONC 32.3 g/dl (32.0-36.5); MEAN CORPUSCULAR VOLUME 87.6 fl (80.0-96.0); PLATELET COUNT, AUTOMATED 306 10^3/uL (150-450); RED BLOOD COUNT 3.78 10^6/uL (4.00-5.40); WHITE BLOOD COUNT 5.9 10^3/uL (4.0-10.0)
[2018-06-17] MEDS: ONDANSETRON 4MG/2ML VIAL (J2405) IV PRN (08:13)
[2018-06-17 08:15] VITALS: BP 145/71
[2018-06-17] MEDS: buPROPion **XL** TABLET 150MG (WELLBUTRIN XL) PO SCH (08:47)
[2018-06-17] MEDS: **hydrALAZINE** 10 MG TAB PO SCH ×2 (08:47→20:27)
[2018-06-17] MEDS: LISINOPRIL 10 MG TAB PO SCH (08:48)
[2018-06-17] MEDS: amLODIPine 5 MG TAB PO SCH (08:48)
[2018-06-17] MEDS: FLUTICASONE PROP 0.05% NASAL SPRAY 16 GM (FLONASE) NARES SCH (08:49)
--- NOTE | 2018-06-17 10:18 | IPNPDOC ---
Subjective General Date/Time Seen The patient was seen on 06/17/18 at 10:17. Subject Chief Complaint/History The patient is a 68-year-old female admitted with a reason for visit of Biliary Acute Pancreatitis. Patient mildly nauseated. She feels sore at the incision sites and somewhat slightly at the left subcostal area. She is able to tolerate a small amount of food. She reports she feels mildly lightheaded when she gets up. She was able to ambulate safely inside her room. Current Medications Current Medications Current Medications Acetaminophen (Tylenol Tab) 650 mg Q4HP PRN PO MILD PAIN or TEMP > 101 Last administered on 06/16/18 05:29; Start 06/15/18 at 16:30 Acetaminophen/ Hydrocodone Bitart ([place], Anexsia 5/325) 1 tab Q4HP PRN PO MODERATE PAIN (PS 5-7) Last administered on 06/17/18 06:03; Start 06/15/18 at 16:30 Acetaminophen/ Hydrocodone Bitart ([place], Anexsia 5/325) 2 tab Q6HP PRN PO SEVERE PAIN (PS 8-10) Last administered on 06/17/18at 10:11; Start 06/15/18 at 16:30 Amlodipine Besylate (Norvasc) 5 mg DAILY PO Last administered on 06/17/18 08:48; Start 06/16/18 at 09:00 Bupropion HCl (Wellbutrin Xl) 300 mg DAILY PO Last administered on 06/17/18at 08:47; Start 06/16/18 at 09:00 Fenofibrate (Tricor) 145 mg QHS PO Last administered on 06/16/18at 21:24; Start 06/15/18 at 21:00 Fentanyl Citrate (Sublimaze) 25 mcg Q5MP PRN IV MODERATE PAIN (PS 4-7) Last administered on 06/16/18at 17:58; Start 06/16/18 at 17:45; Stop 06/16/18 at 18:18; Status DC Fluticasone Propionate (Flonase 0.05% Nasal [place]) 2 spray DAILY NARES Last administered on 06/17/18at 08:49; Start 06/16/18 at 09:00 Home Med (Med Rec Complete!) ASDIRECTED XX ; Start 06/15/18 at 16:30; Stop 06/15/18 at 16:30; Status DC Hydralazine HCl (Apresoline) 10 mg BID PO Last administered on 06/17/18 08:47; Start 06/15/18 at 21:00 Hydroxyzine HCl (Atarax) 25 mg Q6H PRN PO ANXIETY Last administered on 06/16/18 08:48; Start 06/15/18 at 16:30 Lactated Ringer's 1,000 ml @ 100 mls/hr Q10H IV ; Start 06/16/18 at 17:45; Stop 06/16/18 at 18:45; Status DC Lactated Ringer's 1,000 ml @ 125 mls/hr Q8H IV Last administered on 06/17/18 08:13; Start 06/15/18 at 16:30 Levothyroxine Sodium (Synthroid) 25 mcg DAILY@0600 PO Last administered on 06/17/18 05:56; Start 06/16/18 at 06:00 Lisinopril (Prinivil) 10 mg DAILY PO Last administered on 06/17/18 08:48; Start 06/16/18 at 09:00 Mirtazapine (Remeron) 15 mg QHS PO ; Start 06/15/18 at 21:00; Stop 06/15/18 at 21:00; Status DC Mirtazapine (Remeron) 45 mg QHS PO Last administered on 06/16/18 21:24; Start 06/15/18 at 21:00 Morphine Sulfate (Morphine Sulfate Inj) 4 mg Q2HP PRN IV SEVERE PAIN (PS 8-10) Last administered on 06/15/18 16:45; Start 06/15/18 at 16:30 Morphine Sulfate (Morphine Sulfate Inj) 4 mg Q30M PRN IV SEVERE PAIN (PS 8-10) Last administered on 06/15/18 15:53; Start 06/15/18 at 15:00; Stop 06/15/18 at 16:15; Status DC Morphine Sulfate (Morphine Sulfate Inj) 4 mg Q30M PRN IV SEVERE PAIN (PS 8-10); Start 06/15/18 at 16:30 Ondansetron HCl (ZOFRAN INJection) 4 mg Q4HP PRN IV NAUSEA OR VOMITING Last administered on 06/16/18 17:38; Start 06/16/18 at 17:45; Stop 06/16/18 at 18:45; Status DC Ondansetron HCl (ZOFRAN INJection) 4 mg Q6HP PRN IV NAUSEA OR VOMITING Last administered on 06/17/18 08:13; Start 06/15/18 at 19:00 Oxycodone/ Acetaminophen (Percocet 5mg/ 325mg Tablet) 1 tab ASDIRECTED PRN PO MILD/MODERATE PAIN (PS 1-7) Last administered on 06/16/18 18:13; Start 06/16/18 at 17:45; Stop 06/16/18 at 18:45; Status DC Pravastatin Sodium (Pravachol) 80 mg QHS PO Last administered on 06/16/18 20:24; Start 06/15/18 at 21:00 Promethazine HCl (PHENERGAN INJection) 12.5 mg Q6HP PRN IV NAUSEA Last administered on 06/16/18 13:41; Start 06/16/18 at 11:15 Sodium Chloride 1,000 ml @ 100 mls/hr Q10H IV Last administered on 06/15/18 15:15; Start 06/15/18 at 14:37; Stop 06/15/18 at 18:50; Status DC Allergies Coded Allergies: Corticosteroids (Unverified Allergy, Mild, rash, 06/10/17) Latex (Verified Allergy, Mild, 01/09/17) Penicillins (Verified Allergy, Unknown, 01/09/17) Penicillins Cross Reactors (Verified Allergy, Unknown, 01/09/17) Objective Physical Examination Examination GENERAL APPEARANCE: Looks comfortable. SKIN: Warm and moist. HEENT: Normocephalic, atraumatic. [place] palpebral conjunctiva, anicteric sclerae. Lips and mucosa appear moist. NECK: Supple, no thyromegaly. No obvious jugular venous distention. LUNGS: Clear to auscultation bilaterally. No wheezing appreciated. HEART: No chest wall abnormalities. Regular rate and rhythm with no murmurs appreciated. ABDOMEN: Abdomen is obese, soft, nondistended. Laparoscopic cholecystectomy port site incisions with dressing intact, clean and dry. Minimally tender at the incision. Nontender over the right upper quadrant area, epigastric area. EXTREMITIES: Extremities have no deformities. No edema identified. Vital Signs Vital Signs Date Time Temp Pulse Resp B/P (MAP) Pulse Ox O2 Delivery O2 Flow Rate FiO2 06/17/18 10:11 18 06/17/18 08:48 145/71 06/17/18 08:48 69 06/17/18 06:33 Room Air 06/17/18 06:15 97.3 99 I&Os I&O- Last 24 Hours up to 6 AM 06/17/18 06:00 Intake Total 2400 ml Output Total 1710 ml Balance 690 ml Laboratory Data Labs 24H Laboratory Tests 2 06/17/18 05:45: Nucleated Red Blood Cells % (auto) 0.0 CBC/BMP Laboratory Tests 06/17/18 05:45 Red Blood Count 3.78 L, Mean Corpuscular Volume 87.6, Mean Corpuscular Hemoglobin 28.3, Mean Corpuscular Hemoglobin Concent 32.3, Red Cell Distribution Width 13.3 Impression Postop day 1 after laparoscopic cholecystectomy for acute biliary pancreatitis secondary to gallstones. Regular diet Patient instructed to ambulate to hallways. Saline locked IV fluids Plan / VTE VTE Prophylaxis Ordered?: Yes DIMPLE MÁRQUEZ MD Jun 17, 2018 10:18
[2018-06-17 12:15] VITALS: BP 139/71
[2018-06-17 16:00] VITALS: BP 128/81
[2018-06-17] MEDS: FENOFIBRATE 145 MG TAB (TRICOR) PO SCH (20:27)
[2018-06-17] MEDS: PRAVASTATIN 20 MG TAB PO SCH (20:27)
[2018-06-17] MEDS: hydrOXYzine 25 MG TAB PO PRN (21:54)
[2018-06-17] MEDS: MIRTAZAPINE 15 MG TAB PO SCH (21:54)
[2018-06-17 22:00] VITALS: BP 145/74
[2018-06-18] MEDS: NORCO, ANEXSIA 5/325MG TABLET (HYDROcodone/ACETAMINOPHEN) PO PRN ×2 (03:44→15:24)
[2018-06-18] MEDS: LEVOTHYROXINE 25MCG TABLET (0.025MG) PO SCH (05:55)
[2018-06-18 06:00] VITALS: BP 124/59
[2018-06-18 06:58] LABS: HEMATOCRIT 34.3 % (36.0-47.0); MEAN CORPUSCULAR HEMOGLOBIN 28.4 pg (27.0-33.0); MEAN CORPUSCULAR HGB CONC 32.1 g/dl (32.0-36.5); MEAN CORPUSCULAR VOLUME 88.6 fl (80.0-96.0); PLATELET COUNT, AUTOMATED 306 10^3/uL (150-450); RED BLOOD COUNT 3.87 10^6/uL (4.00-5.40); WHITE BLOOD COUNT 6.4 10^3/uL (4.0-10.0)
[2018-06-18 07:22] LABS: ALBUMIN 2.8 GM/DL (3.2-5.2); BILIRUBIN,TOTAL 0.2 MG/DL (0.2-1.0); CALCIUM LEVEL 9.6 MG/DL (8.8-10.2); CREATININE FOR GFR 1.45 MG/DL (0.55-1.30); GLOMERULAR FILTRATION RATE 38.3 (>45); POTASSIUM SERUM 3.9 MEQ/L (3.5-5.1); TOTAL PROTEIN 6.1 GM/DL (6.4-8.2)
[2018-06-18] MEDS: LISINOPRIL 10 MG TAB PO SCH (09:02)
[2018-06-18] MEDS: amLODIPine 5 MG TAB PO SCH (09:02)
[2018-06-18] MEDS: PANTOPRAZOLE 40MG TAB (PROTONIX) PO SCH (09:02)
[2018-06-18] MEDS: buPROPion **XL** TABLET 150MG (WELLBUTRIN XL) PO SCH (09:02)
[2018-06-18] MEDS: **hydrALAZINE** 10 MG TAB PO SCH ×2 (09:02→20:58)
[2018-06-18] MEDS: FLUTICASONE PROP 0.05% NASAL SPRAY 16 GM (FLONASE) NARES SCH (09:03)
[2018-06-18] MEDS ORDERED: MAALOX 30 ML SUSP *UDC PO ONE (12:00)
[2018-06-18] MEDS ORDERED: MOM 30ML SUSPENSION UDC PO ONE (12:00)
[2018-06-18] MEDS ORDERED: NORCOTAB PO (13:01)
[2018-06-18] MEDS ORDERED: ONDA4TAB5 PO (13:01)
--- NOTE | 2018-06-18 13:07 | DS.PDOC ---
Discharge Summary General Date of Admission Jun 15, 2018 at 16:30 Date of Discharge 06/18/2018 Attending Physician: DIMPLE MÁRQUEZ MD Discharge Summary PROCEDURES PERFORMED DURING STAY: Laparoscopic cholecystectomy. ADMITTING DIAGNOSES: 1. Acute biliary pancreatitis 2. Cholelithiasis. DISCHARGE DIAGNOSES: 1. Acute biliary pancreatitis resolved 2. Cholelithiasis status post laparoscopic cholecystectomy. COMPLICATIONS/CHIEF COMPLAINT: Biliary Acute Pancreatitis. HISTORY OF PRESENT ILLNESS: Patient is a 68-year-old female who presented herself to the emergency room today with about a 1 day history of sudden onset of midepigastric abdominal pain radiating to her right upper quadrant area associated nausea and there was she was seen in emergency room a couple episodes of vomiting. Patient reports symptoms started last night and persisted through the night with increasing midepigastric abdominal pain. Of note she was briefly admitted the end of May with unexplained upper abdominal left-sided abdominal pain, chest pain the etiology of which was inserted at that time. She had normal lipase at that time. Workup reveals evidence for gallstones. She reports that the pain was almost similar though less in severity back in May. HOSPITAL COURSE: Patient was admitted to the hospital for acute biliary pancreatitis. She was scheduled when necessary pain medications and antinausea medications. She was started on IV fluid hydration. She had been hemodynamically stable on admission. Beginning lipase was 2250. The following day lipase came down to 157. On examination the following morning her symptoms have resolved. She was no longer having nausea, vomiting nor upper abdominal discomfort. She went to the OR for laparoscopic cholecystectomy on 06/26/2018. She tolerated the procedure well and remained stable. She was having some epigastric discomfort and postop day 1. She also felt slightly dizzy on standing up. She was kept in felt better following day was actually for discharge but started having some episodes of positional vertigo. She was kept for another day this also resolved following morning and she was subsequently discharged home. DISCHARGE MEDICATIONS: Please see below. ALLERGIES: Please see below. PHYSICAL EXAMINATION ON DISCHARGE: VITAL SIGNS: Please see below. GENERAL: Comfortable HEENT: Anicteric sclerae NECK: No jugular venous distention CARDIOVASCULAR EXAMINATION: Regular heart rate and rhythm RESPIRATORY EXAMINATION: Clear breath sounds to auscultation bilaterally with no wheezing ABDOMINAL EXAMINATION: Obese, soft, minimally distended, slightly tympanitic to percussion. Laparoscopic cholecystectomy port site dressings are clean, dry and intact. Mild tenderness over the epigastric port site. EXTREMITIES: No edema SKIN: No jaundice NEUROLOGICAL EXAMINATION: Awake, alert, oriented LABORATORY DATA: Please see below. IMAGING: Ultrasound abdomen done in ER PROGNOSIS: Good ACTIVITY: As tolerated. DIET: As tolerated DISCHARGE PLAN: Patient is discharged home with prescriptions for Phyllis. I also renewed her prescription for Zofran. Patient to follow-up with me in 2 weeks DISPOSITION: Discharged home DISCHARGE INSTRUCTIONS: 1. As above. ITEMS TO FOLLOWUP ON ON OUTPATIENT: 1. Pathology DISCHARGE CONDITION: Stable. TIME SPENT ON DISCHARGE: Greater than 45 minutes. Vital Signs/I&Os Vital Signs Date Time Temp Pulse Resp B/P (MAP) Pulse Ox O2 Delivery O2 Flow Rate FiO2 06/18/18 09:02 124/59 06/18/18 06:00 97.0 70 17 97 Room Air I&O- Last 24 Hours up to 6 AM 06/18/18 06:00 Intake Total 1812.5 ml Output Total 1500 ml Balance 312.5 ml Laboratory Data Labs 24H Laboratory Tests 2 06/18/18 06:41: Nucleated Red Blood Cells % (auto) 0.0, Anion Gap 6L, Glomerular Filtration Rate 38.3L, Blood Urea Nitrogen 18, Creatinine 1.45H, Sodium Level 142, Potassium Level 3.9, Chloride Level 107, Carbon Dioxide Level 29, Calcium Level 9.6, Aspartate Amino Transf (AST/SGOT) 26, Alanine Aminotransferase (ALT/SGPT) 22, Alkaline Phosphatase 39L, Total Bilirubin 0.2, Total Protein 6.1L, Albumin 2.8L, Albumin/Globulin Ratio 0.85L CBC/BMP Laboratory Tests 06/18/18 06:41 Red Blood Count 3.87 L, Mean Corpuscular Volume 88.6, Mean Corpuscular Hemoglobin 28.4, Mean Corpuscular Hemoglobin Concent 32.1, Red Cell Distribution Width 13.9, Calcium Level 9.6, Aspartate Amino Transf (AST/SGOT) 26, Alanine Aminotransferase (ALT/SGPT) 22, Alkaline Phosphatase 39 L, Total Bilirubin 0.2, Total Protein 6.1 L, Albumin 2.8 L Discharge Medications Scheduled (Viibryd) 40 Mg Tab, 40 MG PO DAILY, (Reported) Amlodipine Besylate (Amlodipine Besylate) 5 Mg Tab, 5 MG PO DAILY, (Reported) Bupropion HCl (Bupropion HCl Xl) 300 Mg Tab, 300 MG PO DAILY, (Reported) Fenofibrate (Fenofibrate) 145 Mg Tab, 145 MG PO QHS, (Reported) Fluticasone Propionate (Flonase Allergy Relief) 50 Mcg/Act Spr, 2 SPRAY NARES DAILY, (Reported) Hydralazine HCl (Hydralazine HCl) 10 Mg Tab, 10 MG PO BID, (Reported) Levothyroxine Sodium (Synthroid) 25 Mcg Tab, 25 MCG PO DAILY, (Reported) Lisinopril (Lisinopril) 10 Mg Tab, 10 MG PO DAILY, (Reported) Omeprazole (Omeprazole) 40 Mg Cap, 40 MG PO BID, (Reported) Pravastatin Sodium (Pravastatin Sodium) 80 Mg Tab, 80 MG PO QHS, (Reported) Scheduled PRN Acetaminophen/Hydrocodone ([place], Anexsia 5/325) 1 Tab Tab, 1-2 TAB PO Q4HP PRN for MODERATE PAIN (PS 5-7) Hydroxyzine HCl (Hydroxyzine HCl) 25 Mg Tab, 25 MG PO Q6H PRN for ANXIETY, (Reported) Metoclopramide HCl (Reglan) 10 Mg Tab, 10 MG PO Q6H PRN for NAUSEA Miscellaneous Medications Suvorexant (Belsomra) 5 Mg Tab, (Reported) Allergies Coded Allergies: Corticosteroids (Unverified Allergy, Mild, rash, 06/10/17) Latex (Verified Allergy, Mild, 01/09/17) Penicillins (Verified Allergy, Unknown, 01/09/17) Penicillins Cross Reactors (Verified Allergy, Unknown, 01/09/17) DIMPLE MÁRQUEZ MD Jun 18, 2018 13:07
[2018-06-18 14:00] VITALS: BP 148/74
[2018-06-18 20:00] VITALS: BP 148/88
[2018-06-18] MEDS: FENOFIBRATE 145 MG TAB (TRICOR) PO SCH (20:58)
[2018-06-18] MEDS: PRAVASTATIN 20 MG TAB PO SCH (20:58)
[2018-06-18] MEDS: MIRTAZAPINE 15 MG TAB PO SCH (22:21)
[2018-06-18] MEDS: hydrOXYzine 25 MG TAB PO PRN (22:21)
[2018-06-19 03:55] VITALS: BP 147/77
[2018-06-19] MEDS: NORCO, ANEXSIA 5/325MG TABLET (HYDROcodone/ACETAMINOPHEN) PO PRN ×2 (03:56→10:04)
[2018-06-19] MEDS: LEVOTHYROXINE 25MCG TABLET (0.025MG) PO SCH (05:46)
[2018-06-19 09:31] VITALS: BP 186/98
[2018-06-19] MEDS: amLODIPine 5 MG TAB PO SCH (09:31)
[2018-06-19] MEDS: LISINOPRIL 10 MG TAB PO SCH (09:31)
[2018-06-19] MEDS: PANTOPRAZOLE 40MG TAB (PROTONIX) PO SCH (09:31)
[2018-06-19] MEDS: buPROPion **XL** TABLET 150MG (WELLBUTRIN XL) PO SCH (09:32)
[2018-06-19] MEDS: **hydrALAZINE** 10 MG TAB PO SCH (09:32)
[2018-06-19] MEDS: FLUTICASONE PROP 0.05% NASAL SPRAY 16 GM (FLONASE) NARES SCH (09:32)
[2018-06-19] MEDS ORDERED: MIRALAX *UNIT DOSE* 17GM PACKET PO ONE (10:15)
--- NOTE | 2018-06-19 13:19 | IPNPDOC ---
Text Note Date of Service The patient was seen on 06/19/18. NOTE Patient was for discharge yesterday but discharge health because patient was feeling slightly lightheaded. Patient reports this is improved today so she is complaining of some abdominal cramping related to her constipation. She did get milk of magnesia yesterday. She is passing flatus. She's been afebrile. She is tolerating regular food Vital signs reviewed and is noted to be stable, afebrile. Her blood pressure slightly up. On examination she looks mildly uncomfortable secondary to the gas cramping. Abdomen is minimally distended soft. Mild tenderness right around the epigastric port site nontender everywhere else Postop day 4 after laparoscopic cholecystectomy Acute biliary pancreatitis resolved Constipation She was given a dose of MiraLAX today. I told her to take Dulcolax 2 tablets at night up until her regular bowel movements resumed. I think she is stable enough to go home. VS,Fishbone, I+O VS, Fishbone, I+O Vital Signs Date Time Temp Pulse Resp B/P (MAP) Pulse Ox O2 Delivery O2 Flow Rate FiO2 06/19/18 11:00 19 06/19/18 09:31 82 186/98 06/19/18 03:55 96.0 100 Room Air I&O- Last 24 Hours up to 6 AM 06/19/18 06:00 Intake Total 855 ml Output Total 1500 ml Balance -645 ml DIMPLE MÁRQUEZ MD Jun 19, 2018 13:19
[2018-06-19 14:00] VITALS: BP 142/86
[2018-06-20] MEDS ORDERED: BELS1TAB (10:27)
[2018-06-20] MEDS ORDERED: REGL10TA6 PO (17:24)
== END 2018-06-19 15:00 | disposition home or self-care (01) | DRG 417 ==
LOC: M ED 14:25 → M ED INP 16:30 → M MS4PR 18:46
PROVIDERS: ADMIT Surgery; ATTEND Surgery
PROC: 0FT44ZZ Resection of Gallbladder, Percutaneous Endoscopic Approach (ICD-10-PCS; principal; 2018-06-16 16:45)
DX: K80.20 Calculus of gallbladder without cholecystitis without obstruction (principal); K85.10 Biliary acute pancreatitis without necrosis or infection; K82.1 Hydrops of gallbladder; N18.3 Chronic kidney disease, stage 3 (moderate); E03.9 Hypothyroidism, unspecified; F41.9 Anxiety disorder, unspecified; F32.9 Major depressive disorder, single episode, unspecified; G47.00 Insomnia, unspecified; J30.9 Allergic rhinitis, unspecified; I12.9 Hypertensive chronic kidney disease with stage 1 through stage 4 chronic kidney disease, or unspecified chronic kidney disease; Z79.899 Other long term (current) drug therapy; Z88.0 Allergy status to penicillin; Z88.8 Allergy status to other drugs, medicaments and biological substances; Z91.040 Latex allergy status

== ENCOUNTER 2018-06-20 09:58 | Emergency (ER) | payer MEDICARE, MEDICAID ==
[~2018-06-20] VITALS: Ht 167.6 cm; Wt 77.0 kg
[~2018-06-20 09:58] MED LIST changes: +AMLO5TAB6 PO; +FLON1SPR NARES; +MIRT1TAB PO; +MIRT30TA3 PO; +NORCOTAB PO; +OMEP40CA2 PO; +VIIB40TA PO
[2018-06-20] MEDS ORDERED: diphenhydrAMINE INJ 50MG/ML VIAL (J1200) IV STA (10:13)
[2018-06-20] MEDS ORDERED: METOCLOPRAMIDE INJ 10MG/2ML VIAL (J2765) IV ONE (10:15)
[2018-06-20] MEDS ORDERED: NS 1,000 ML IV ONE (10:15)
[2018-06-20] MEDS ORDERED: BELS1TAB (10:27)
[2018-06-20 10:34] LABS: BASO % 0.4 % (0.0-1.0); EOS # 0.2 10^3/uL (0.0-0.50); EOS % 2.6 % (0.0-3.0); HEMATOCRIT 40.1 % (36.0-47.0); HEMOGLOBIN 12.9 g/dl (12.0-15.5); LYMPH # 1.2 10^3/uL (1.5-4.5); LYMPH % 16.6 % (24.0-44.0); MEAN CORPUSCULAR HEMOGLOBIN 28.6 pg (27.0-33.0); MEAN CORPUSCULAR HGB CONC 32.2 g/dl (32.0-36.5); MEAN CORPUSCULAR VOLUME 88.9 fl (80.0-96.0); MONO # 0.4 10^3/uL (0.0-0.8); NEUTROPHILS # 5.3 10^3/uL (1.8-7.7); NEUTROPHILS % 75.1 % (36.0-66.0); PLATELET COUNT, AUTOMATED 343 10^3/uL (150-450); RED BLOOD COUNT 4.51 10^6/uL (4.00-5.40)
[2018-06-20 11:08] LABS: ALBUMIN 3.3 GM/DL (3.2-5.2); ALT/SGPT 62 U/L (12-78); BILIRUBIN,DIRECT 0.4 MG/DL (0.0-0.2); BILIRUBIN,TOTAL 0.7 MG/DL (0.2-1.0); BLOOD UREA NITROGEN 17 MG/DL (7-18); CARBON DIOXIDE LEVEL 26 MEQ/L (21-32); CHLORIDE LEVEL 102 MEQ/L (98-107); CPK CREATINE PHOSPHOKINASE 40 U/L (26-192); CREATININE FOR GFR 1.22 MG/DL (0.55-1.30); GLOMERULAR FILTRATION RATE 46.8 (>45); GLUCOSE, FASTING 92 MG/DL (70-100); LIPASE 143 U/L (73-393); MB/CK RELATIVE INDEX 2.75 (< OR =4); POTASSIUM SERUM 4.2 MEQ/L (3.5-5.1); SODIUM LEVEL 138 MEQ/L (136-145); TOTAL PROTEIN 7.2 GM/DL (6.4-8.2); TROPONIN I < 0.02 NG/ML (< 0.10)
[2018-06-20] MEDS ORDERED: ACETAMINOPHEN 325 MG TAB PO ONE (11:30)
[2018-06-20] MEDS ORDERED: ONDANSETRON 4MG/2ML VIAL (J2405) As Ordered ONE (11:39)
[2018-06-20] MEDS ORDERED: ONDANSETRON 4MG/2ML VIAL (J2405) IV ONE (11:45)
--- NOTE | 2018-06-20 12:00 | REP ---
Acute abdominal series: Three views. History: Abdomen pain. Post cholecystectomy June 16 2018. Comparison chest x-ray: October 29, 2017. Findings: Upright chest radiograph shows no evidence of infiltrate or free subdiaphragmatic air. Heart is not enlarged. The thoracic aorta is mildly tortuous and calcific. There is minimal linear fibrosis at the left base. Supine and erect views of the abdomen demonstrate an aortobi-iliac stent graft and clips in the right upper quadrant. The bowel gas pattern is normal. Psoas margins and flank stripes are intact. No mass or organomegaly is seen. No bony abnormality. Impression: Status post aortobi-iliac stent graft placement and cholecystectomy. Normal bowel gas pattern. No acute abnormality. Electronically Signed by Constantine Graham MD 06/20/2018 12:45 P
--- NOTE | 2018-06-20 12:19 | REP ---
CT brain without contrast: History: Headache. Comparison CT brain study is from January 09, 2017. Findings: Digital preliminary construction equipment mechanic helper radiograph shows no significant abnormality. Bony calvarium is intact on bone window settings. Visualized paranasal sinuses are clear. There is some vascular calcification in the carotid siphons bilaterally, mild in degree. There is mild to moderate diffuse cerebral atrophy, unchanged. There is no evidence of intracranial hemorrhage. No extra-axial fluid collection is seen. No mass or midline shift is seen. Impression: Diffuse atrophy and vascular calcification again noted. No acute intracranial abnormality. Electronically Signed by Constantnie Graham MD 06/20/2018 12:46 P
[2018-06-20] MEDS ORDERED: KETOROLAC 30 MG/ML VIAL (J1885) IV ONE (12:30)
[2018-06-20] MEDS: MORPHINE 2 MG/ML 1ML SYRINGE (J2270) IV PRN ×2 (13:05→13:30)
[2018-06-20] MEDS ORDERED: MAGNESIUM CITRATE 300 ML BTL PO ONE (13:15)
[2018-06-20] MEDS ORDERED: MECLIZINE 25 MG TABLET PO ONE (14:45)
[2018-06-20 15:45] LABS: ERYTHROCYTE SEDIMENTATION RATE 22 mm/hr (0-30)
--- NOTE | 2018-06-20 15:54 | REP ---
MR angiography the brain without contrast: History: Headache. Comparison MR angiography of the brain is from March 02, 2018. Technique: 3-D [id number] MR angiography of the brain is acquired in the usual fashion and maximal intensity projection images were generated in rotational format about the vertical and horizontal axes. In addition, source axial T1-weighted images are viewed in cine mode. MR angiographic findings: The distal vertebral arteries are patent and the left is dominant in size unchanged. Basilar artery is a little tortuous but widely patent. The posterior cerebral and superior cerebellar vessels are normal and symmetric. The distal internal carotid arteries are unremarkable. Anterior and middle cerebral arteries appear intact. There is no visible solano aneurysm or arteriovenous malformation. Impression: Unremarkable MR angiography the brain. Electronically Signed by Constantine Graham MD 06/20/2018 03:45 P
[2018-06-20] MEDS ORDERED: PROCHLORPERAZINE 10 MG/2 ML VIAL (J0780) IV STA (16:50)
[2018-06-20] MEDS ORDERED: REGL10TA6 PO (17:24)
[2018-06-20 17:30] VITALS: BP 138/76
--- NOTE | 2018-06-20 17:37 | ECGEPIP ---
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
--- NOTE | 2018-06-21 06:28 | REP ---
MRI brain without contrast: History: Headache. Comparison study February 02, 2018. Technique: Axial and sagittal imaging planes are utilized for T1 and T2-weighted scans. Sequences include spin-echo, fast spin echo, FLAIR, and diffusion weighted sequences. MRI findings: Craniocervical junction and upper cervical cord are normal in appearance. Bony calvarium is intact. No intraorbital abnormality is seen. There is no MR evidence of significant paranasal sinus disease. Humphreys-white differentiation pattern is normal above and below the tentorium. Diffusion weighted scans show no evidence to suggest acute ischemia. There is some generalized volume loss as before. Minimal small vessel changes are again noted. There is no evidence of intracranial hemorrhage, mass, extra-axial fluid collection or midline shift. Impression: Generalized volume loss and minimal small vessel changes. No acute intracranial abnormality. No change from February 02, 2018 prior study. Electronically Signed by Constantine Graham MD 06/21/2018 08:12 A
== END 2018-06-20 17:47 | disposition home or self-care (01) ==
LOC: EDBD 09:58 → M ED 09:58
DX: R51 Headache (principal); R10.9 Unspecified abdominal pain; I12.9 Hypertensive chronic kidney disease with stage 1 through stage 4 chronic kidney disease, or unspecified chronic kidney disease; N18.9 Chronic kidney disease, unspecified; E07.9 Disorder of thyroid, unspecified; F33.9 Major depressive disorder, recurrent, unspecified; F41.9 Anxiety disorder, unspecified; Z79.899 Other long term (current) drug therapy; Z79.890 Hormone replacement therapy; Z88.0 Allergy status to penicillin; Z88.8 Allergy status to other drugs, medicaments and biological substances; Z91.040 Latex allergy status
CPT/HCPCS: 70450; 70544; 70551; 74021; 80048; 80076; 82550; 82553; 83690; 84484; 85025; 85652; 93005; 96361; 96374; 96375; 99285; J1200; J1885; J2270; J2405; J2765

== ENCOUNTER 2018-07-18 18:20 | Emergency (ER) | payer MEDICARE, MEDICAID ==
[~2018-07-18] VITALS: Ht 167.6 cm; Wt 77.3 kg
[~2018-07-18 18:20] MED LIST changes: +BELS1TAB; +REGL10TA6 PO
[2018-07-18] MEDS ORDERED: MUCI600T37 PO (18:29)
[2018-07-18] MEDS ORDERED: FLUN25SP (18:29)
[2018-07-18 22:20] LABS: BASO % 0.4 % (0.0-1.0); EOS # 0.2 10^3/uL (0.0-0.50); EOS % 2.8 % (0.0-3.0); HEMATOCRIT 40.4 % (36.0-47.0); LYMPH # 2.2 10^3/uL (1.5-4.5); LYMPH % 32.9 % (24.0-44.0); MEAN CORPUSCULAR HEMOGLOBIN 28.8 pg (27.0-33.0); MEAN CORPUSCULAR HGB CONC 32.2 g/dl (32.0-36.5); MEAN CORPUSCULAR VOLUME 89.4 fl (80.0-96.0); MONO # 0.5 10^3/uL (0.0-0.8); MONO % 7.3 % (0.0-5.0); NEUTROPHILS # 3.8 10^3/uL (1.8-7.7); NEUTROPHILS % 56.3 % (36.0-66.0); PLATELET COUNT, AUTOMATED 390 10^3/uL (150-450); RED BLOOD COUNT 4.52 10^6/uL (4.00-5.40); WHITE BLOOD COUNT 6.8 10^3/uL (4.0-10.0)
[2018-07-18 22:50] LABS: ALBUMIN 3.7 GM/DL (3.2-5.2); ALT/SGPT 18 U/L (12-78); BILIRUBIN,DIRECT < 0.1 MG/DL (0.0-0.2); BILIRUBIN,TOTAL 0.2 MG/DL (0.2-1.0); BLOOD UREA NITROGEN 25 MG/DL (7-18); CALCIUM LEVEL 9.8 MG/DL (8.8-10.2); CARBON DIOXIDE LEVEL 29 MEQ/L (21-32); CHLORIDE LEVEL 103 MEQ/L (98-107); CK-MB VALUE MASS < 1.0 NG/ML (<3.6); CPK CREATINE PHOSPHOKINASE 79 U/L (26-192); CREATININE FOR GFR 1.54 MG/DL (0.55-1.30); FREE T4 1.11 NG/DL (0.76-1.46); GLOMERULAR FILTRATION RATE 35.8 (>45); GLUCOSE, FASTING 99 MG/DL (70-100); LIPASE 177 U/L (73-393); MB/CK RELATIVE INDEX 1.27 (< OR =4); POTASSIUM SERUM 4.2 MEQ/L (3.5-5.1); SODIUM LEVEL 136 MEQ/L (136-145); TOTAL PROTEIN 7.7 GM/DL (6.4-8.2); TROPONIN I < 0.02 NG/ML (< 0.10)
[2018-07-18] MEDS ORDERED: ISOVUE-370 76% 100ML VIAL (Q9967) As Ordered ONE (23:02)
[2018-07-18] MEDS ORDERED: NS 1,000 ML IV ONE (23:15)
--- NOTE | 2018-07-18 23:37 | REPVR ---
EXAM: CT Angiography Chest With Contrast EXAM DATE/TIME: 07/18/2018 11:25 PM CLINICAL HISTORY: 68 years old, female; Condition or disease; Cardiovascular condition or disease; Aortic aneurysm; Without rupture; Prior surgery; Surgery date: 6+ months; Additional info: R/O dissecting aneurysm TECHNIQUE: Axial computed tomographic angiography images of the chest with intravenous contrast using CT angiography protocol. All CT scans at this facility use at least one of these dose optimization techniques: automated exposure control; mA and/or kV adjustment per patient size (includes targeted exams where dose is matched to clinical indication); or iterative reconstruction. Coronal and sagittal reformatted images were created and reviewed. MIP and 3D reconstructed images were created and reviewed. CONTRAST: 100 ml of iso 370 administered intravenously. COMPARISON: CT ANGIO CHEST 05/29/2018 7:28 PM FINDINGS: Pulmonary arteries: No pulmonary embolus. Aorta: Stable moderate atherosclerotic changes in the thoracic aorta predominantly in the aortic arch including non-calcific intraluminal clot. No evidence of dissection demonstrated. Intraluminal tonsils are demonstrated in the descending thoracic aorta. No aortic aneurysm. Aortic stent demonstrated in the visualized abdominal aorta. Lungs: Stable smooth bordered pleural-based noncalcified nodule in the medial aspect of the superior segment of the right lower lobe measures 8 mm. remaining lungs clear. Pleural space: Normal. No pneumothorax. No pleural effusion. Heart: There is mild atherosclerotic calcification of the coronary arteries. Lymph nodes: Unremarkable. No enlarged lymph nodes. Bones/joints: The spine demonstrates mild degenerative changes. Soft tissues: Unremarkable. IMPRESSION: 1. Stable moderate atherosclerotic changes in the thoracic aorta predominantly in the aortic arch including non-calcific intraluminal clot. No evidence of dissection demonstrated. Intraluminal tonsils are demonstrated in the descending thoracic aorta. No aortic aneurysm. 2. No pulmonary embolus. 3. Stable smooth bordered pleural-based noncalcified nodule in the medial aspect of the superior segment of the right lower lobe measures 8 mm. Electronically signed by: Cuauhtemoc Butts On 07/18/2018 23:37:27 PM
--- NOTE | 2018-07-18 23:42 | REPVR ---
EXAM: CT Abdomen and Pelvis With Contrast EXAM DATE/TIME: 07/18/2018 11:25 PM CLINICAL HISTORY: 68 years old, female; Condition or disease; Other: Aaa; Prior surgery; Surgery date: 6+ months; Additional info: R/O dissecting aneurysm. No images in the abdomen order. . . All images continuous in the chest folder TECHNIQUE: Axial computed tomography images of the abdomen and pelvis with intravenous contrast. All CT scans at this facility use at least one of these dose optimization techniques: automated exposure control; mA and/or kV adjustment per patient size (includes targeted exams where dose is matched to clinical indication); or iterative reconstruction. CONTRAST: 100 ml of iso 370 administered intravenously. COMPARISON: No relevant prior studies available. FINDINGS: ABDOMEN: Liver: There is a diffuse decrease in hepatic parenchymal density, consistent with fatty infiltration. Gallbladder and bile ducts: There has been a cholecystectomy. Pancreas: Normal. No ductal dilation. Spleen: Normal. No splenomegaly. Adrenals: Bilateral adrenal hyperplasia. Kidneys and ureters: Normal. No hydronephrosis. Stomach and bowel: Mild diverticulosis is present in the distal colon. No diverticulitis. Appendix: No evidence of appendicitis. PELVIS: Bladder: Unremarkable as visualized. Reproductive: Unremarkable as visualized. ABDOMEN and PELVIS: Intraperitoneal space: Normal. No free air. No significant fluid collection. Bones/joints: The spine demonstrates mild degenerative changes. Soft tissues: Unremarkable. Vasculature: Status post placement of a bifurcating stent graft in the abdominal aorta. Maximum transverse dimensions of the [place] aneurysm are 4.6 x 4.9 cm. Proximal and distal anastomoses of the bifurcating graft appear unremarkable. No CT evidence of an endograft leak. Lymph nodes: Normal. No enlarged lymph nodes. IMPRESSION: 1. There is a diffuse decrease in hepatic parenchymal density, consistent with fatty infiltration. 2. Mild diverticulosis is present in the distal colon. No diverticulitis. 3. There has been a cholecystectomy. 4. status post placement of a bifurcating endograft in the abdomen aorta and proximal and distal anastomoses appearing unremarkable and no evidence of an endoleak. Electronically signed by: Cuauhtemoc Butts On 07/18/2018 23:42:20 PM
[2018-07-19] MEDS ORDERED: ACETAMINOPHEN TAB 650MG DOSE (2X325MG) PO ONE
[2018-07-19] MEDS ORDERED: LIDO5TD TOP (00:20)
[2018-07-19 00:30] VITALS: BP 144/78
[2018-07-19] MEDS ORDERED: LIDOCAINE 5% (LIDODERM) PATCH TD ONE (00:30)
--- NOTE | 2018-07-19 08:01 | REP ---
PA and lateral chest: There are no comparison plain film studies. There comparison chest CTs. Lung ness are clear. Cardiac size is normal. The sheyla, mediastinum, skeletal structures are unremarkable. Impression: There are no acute cardiopulmonary findings. By CT the patient has an 8 mm right lower lobe subpleural noncalcified lung nodule that has been stable since 2016. This nodule is not visible on plain films. Electronically Signed by Anuj Flowers MD 07/19/2018 07:52 A
[2018-07-19] MEDS ORDERED: **NOTE PATIENT COMMENT** MISC XX SCH (21:00)
--- NOTE | 2018-07-20 11:43 | ED PDOC ---
Post-Departure Follow-Up monique alexis faxed formal report of cta chest for fu Erica Schulz MD Jul 20, 2018 11:43
--- NOTE | 2018-07-20 18:39 | ECGEPIP ---
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
== END 2018-07-19 00:31 | disposition home or self-care (01) ==
LOC: M ED 18:20
DX: M54.9 Dorsalgia, unspecified (principal); N18.9 Chronic kidney disease, unspecified; R51 Headache; R91.8 Other nonspecific abnormal finding of lung field; K76.0 Fatty (change of) liver, not elsewhere classified; E03.9 Hypothyroidism, unspecified; I12.9 Hypertensive chronic kidney disease with stage 1 through stage 4 chronic kidney disease, or unspecified chronic kidney disease; E78.5 Hyperlipidemia, unspecified; J43.9 Emphysema, unspecified; F17.200 Nicotine dependence, unspecified, uncomplicated; Z86.79 Personal history of other diseases of the circulatory system; Z98.890 Other specified postprocedural states; Z88.8 Allergy status to other drugs, medicaments and biological substances; Z91.040 Latex allergy status; Z88.0 Allergy status to penicillin
CPT/HCPCS: 71046; 71275; 74160; 80048; 80076; 81001; 82550; 82553; 83690; 84439; 84443; 84484; 85025; 93005; 99284; Q9967

== ENCOUNTER → 2018-08-20 | Outpatient (CLI) | payer MEDICARE, MEDICAID ==
[~2018-08-20] MED LIST changes: +FLUN25SP; +LIDO5TD TOP; +MUCI600T37 PO
--- NOTE | 2018-08-20 13:34 | REP ---
Thoracic spine three views: Comparison is 10/29/2017. There is demineralization and mild kyphosis. There is degenerative disc disease throughout the thoracic spine. Pedicles are unremarkable. No compression deformity or listhesis. There is abdominal aortic endovascular stent. No significant interval change. Electronically Signed by Anuj Flowers MD 08/20/2018 01:26 P
== END ==
LOC: M SMT 09:26
PROVIDERS: ATTEND Physician Assistant Medical
DX: M54.6 Pain in thoracic spine (principal)

== ENCOUNTER → 2018-10-13 | Outpatient (REF) | payer MEDICARE, MEDICAID ==
[~2018-10-13] MED LIST changes: +HYDR-3715 PO; -NORCOTAB PO; +SERT-141 PO; -SERT50TA PO
[2018-10-13 19:10] LABS: APPEARANCE, URINE CLEAR (CLEAR); BACTERIA, URINE AUTO NEGATIVE (NEGATIVE); BILIRUBIN, URINE AUTO NEGATIVE (NEGATIVE); BLOOD, URINE BLOOD NEGATIVE (NEGATIVE); COLOR, URINE STRAW (YELLOW); GLUCOSE, URINE (UA) AUTO NEGATIVE (NEGATIVE); KETONE, URINE AUTO NEGATIVE (NEGATIVE); LEUKOCYTE ESTERASE, URINE AUTO NEGATIVE (NEGATIVE); NITRITE, URINE AUTO NEGATIVE (NEGATIVE); PROTEIN, URINE AUTO NEGATIVE (NEGATIVE); RBC, URINE AUTO 1 /HPF (0-3); SPECIFIC GRAVITY URINE AUTO 1.011 (1.002-1.035); SQUAMOUS EPITHELIAL CELL UR AU 0 /HPF (0-6); UROBILINOGEN, URINE AUTO 0.2 mg/dL (0.0-2.0); WBC, URINE AUTO 1 /HPF (0-3)
== END ==
LOC: M SFHCPLAZ 18:10
PROVIDERS: ATTEND Physician Assistant Medical
DX: N30.00 Acute cystitis without hematuria (principal)

== ENCOUNTER → 2018-10-22 | Outpatient (CLI) | payer MEDICARE, MEDICAID ==
--- NOTE | 2018-10-22 19:16 | REP ---
Abdominal aortic sonography: History: Abdominal aortic aneurysm. Atherosclerosis of the renal artery. Status post aortobi-iliac stent graft repair. Comparison CT study is from May 29, 2018. Sonographic findings: Proximally at the diaphragmatic hiatus, aortic dimensions are 2.3 x 3.0 cm, AP by transverse respectively. There is a mid and distal aortic aneurysm. At mid aorta the dimensions are 3.0 x 3.2 cm. The aortic aneurysm maximally measures 4.2 cm AP by 5.0 cm right to left. A 8.8 cm length of aorta is aneurysmally dilated. The right and left common iliac arteries measure 1.6 and 1.7 cm in AP dimension respectively. The aortic lumen measures 2.1 x 2.3 cm in AP by transverse dimension at the level of the aneurysm. Stent graft is seen in place. The aneurysm measured 4.5 cm in greatest AP dimension by my measurement on May 29, 2018 and has not increased further in size. Impression: Aortobi-iliac stent graft treatment for abdominal aortic aneurysm. The aneurysm currently measures 4.2 cm in AP dimension, previously 4.5 cm. Electronically Signed by Constantine Graham MD 10/23/2018 11:45 A
== END ==
LOC: M RAD 09:36
PROVIDERS: ATTEND Surgery Vascular Surgery
DX: I70.1 Atherosclerosis of renal artery (principal)

== ENCOUNTER → 2018-11-22 | Outpatient (REF) | payer MEDICARE, MEDICAID ==
[~2018-11-22] MED LIST changes: +TRAZ1TAB10 PO; -TRAZO50TA PO
[2018-11-22 18:24] LABS: BASO % 0.6 % (0.0-1.0); EOS # 0.2 10^3/uL (0.0-0.50); EOS % 3.1 % (0.0-3.0); HEMATOCRIT 37.8 % (36.0-47.0); HEMOGLOBIN 12.1 g/dl (12.0-15.5); LYMPH # 2.1 10^3/uL (1.5-4.5); LYMPH % 28.7 % (24.0-44.0); MEAN CORPUSCULAR HEMOGLOBIN 29.9 pg (27.0-33.0); MEAN CORPUSCULAR VOLUME 93.3 fl (80.0-96.0); MONO # 0.6 10^3/uL (0.0-0.8); MONO % 8.7 % (0.0-5.0); NEUTROPHILS # 4.2 10^3/uL (1.8-7.7); NEUTROPHILS % 58.6 % (36.0-66.0); PLATELET COUNT, AUTOMATED 319 10^3/uL (150-450); RED BLOOD COUNT 4.05 10^6/uL (4.00-5.40); WHITE BLOOD COUNT 7.1 10^3/uL (4.0-10.0)
[2018-11-22 18:57] LABS: ALBUMIN 3.7 GM/DL (3.2-5.2); ALT/SGPT 24 U/L (12-78); BILIRUBIN,TOTAL 0.2 MG/DL (0.2-1.0); BLOOD UREA NITROGEN 33 MG/DL (7-18); CALCIUM LEVEL 9.8 MG/DL (8.8-10.2); CARBON DIOXIDE LEVEL 30 MEQ/L (21-32); CHLORIDE LEVEL 105 MEQ/L (98-107); CREATININE FOR GFR 1.28 MG/DL (0.55-1.30); FREE T4 0.96 NG/DL (0.76-1.46); GLOMERULAR FILTRATION RATE 44.3 (>45); GLUCOSE, FASTING 84 MG/DL (70-100); POTASSIUM SERUM 4.5 MEQ/L (3.5-5.1); SODIUM LEVEL 139 MEQ/L (136-145); TOTAL PROTEIN 7.9 GM/DL (6.4-8.2)
[2018-11-22 18:58] LABS: VITAMIN B12 LEVEL 446 PG/ML (247-911)
== END ==
LOC: M SFHCPLAZ 14:22
PROVIDERS: ATTEND Physician Assistant Medical
DX: I10 Essential (primary) hypertension (principal); R41.3 Other amnesia
CPT/HCPCS: 36415; 80053; 82607; 83655; 84439; 84443; 85025; 86780; G0463

== ENCOUNTER → 2018-12-13 | Outpatient (REF) | payer MEDICARE, MEDICAID ==
[2018-12-13 19:05] LABS: APPEARANCE, URINE CLEAR (CLEAR); BACTERIA, URINE AUTO NEGATIVE (NEGATIVE); BILIRUBIN, URINE AUTO NEGATIVE (NEGATIVE); BLOOD, URINE BLOOD NEGATIVE (NEGATIVE); COLOR, URINE YELLOW (YELLOW); GLUCOSE, URINE (UA) AUTO NEGATIVE (NEGATIVE); KETONE, URINE AUTO NEGATIVE (NEGATIVE); LEUKOCYTE ESTERASE, URINE AUTO NEGATIVE (NEGATIVE); MUCUS, URINE SMALL (NEGATIVE); NITRITE, URINE AUTO NEGATIVE (NEGATIVE); PROTEIN, URINE AUTO NEGATIVE (NEGATIVE); RBC, URINE AUTO 1 /HPF (0-3); SPECIFIC GRAVITY URINE AUTO 1.012 (1.002-1.035); SQUAMOUS EPITHELIAL CELL UR AU 0 /HPF (0-6); UROBILINOGEN, URINE AUTO 0.2 mg/dL (0.0-2.0); WBC, URINE AUTO 0 /HPF (0-3)
== END ==
LOC: M SMT 17:21
PROVIDERS: ATTEND Nurse Practitioner Women's Health
DX: R32 Unspecified urinary incontinence (principal)
CPT/HCPCS: 51798; 81001; 87086; G0463

== ENCOUNTER → 2018-12-22 | Outpatient (REF) | payer MEDICARE, MEDICAID ==
[~2018-12-22] MED LIST changes: -QUET1TAB9 PO; +QUET200T2 PO
[2018-12-22 10:08] LABS: CHOLESTEROL RISK RATIO 3.903 (<5)
== END ==
PROVIDERS: ATTEND Physician Assistant Medical
DX: E78.5 Hyperlipidemia, unspecified (principal)

== ENCOUNTER → 2019-01-05 | Outpatient (REF) | payer MEDICARE, MEDICAID ==
[2019-01-05 12:04] LABS: ALBUMIN 3.7 GM/DL (3.2-5.2); ALT/SGPT 19 U/L (12-78); BILIRUBIN,DIRECT < 0.1 MG/DL (0.0-0.2); BILIRUBIN,TOTAL 0.3 MG/DL (0.2-1.0); CHOLESTEROL LEVEL 207 MG/DL (<200); CHOLESTEROL RISK RATIO 3.763 (<5); HDL CHOLESTEROL 55 MG/DL (>40); LDL CHOLESTEROL 119 MG/DL (<100); NON-HDL-C 152 MG/DL; TOTAL PROTEIN 7.8 GM/DL (6.4-8.2); TRIGLYCERIDES LEVEL 165 MG/DL (<150)
== END ==
PROVIDERS: ATTEND Psychiatry & Neurology Psychiatry
DX: E78.00 Pure hypercholesterolemia, unspecified (principal)

== ENCOUNTER → 2019-01-10 | Outpatient (CLI) | payer MEDICARE, MEDICAID ==
--- NOTE | 2019-01-10 21:05 | ECGEPIP ---
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
== END ==
LOC: M EKG 11:02
PROVIDERS: ATTEND Psychiatry & Neurology Psychiatry
DX: I51.7 Cardiomegaly (principal)

== ENCOUNTER → 2019-01-18 | Outpatient (REF) | payer MEDICARE, MEDICAID ==
[2019-01-18 16:27] LABS: ALBUMIN 3.8 GM/DL (3.2-5.2); BILIRUBIN,TOTAL 0.2 MG/DL (0.2-1.0); CALCIUM LEVEL 10.2 MG/DL (8.8-10.2); CREATININE FOR GFR 1.15 MG/DL (0.55-1.30); GLOMERULAR FILTRATION RATE 50.1 (>45); POTASSIUM SERUM 4.8 MEQ/L (3.5-5.1); TOTAL PROTEIN 7.9 GM/DL (6.4-8.2)
[2019-01-18 16:35] LABS: HEMOGLOBIN A1c 5.6 %
== END ==
LOC: M SFHCPLAZ 12:39
PROVIDERS: ATTEND Physician Assistant Medical
DX: N18.3 Chronic kidney disease, stage 3 (moderate) (principal); E66.09 Other obesity due to excess calories

== ENCOUNTER → 2019-03-14 | Outpatient (CLI) | payer MEDICARE, MEDICAID ==
--- NOTE | 2019-03-16 15:50 | DEXA ---
AP SPINE L1 - L4 1.177 -0.1 1.5 LT FEMUR TOTAL 0.929 -0.6 0.7 LT NECK 0.793 -1.8 -0.2 RT FEMUR TOTAL 0.978 -0.2 1.1 RT NECK 0.911 -0.9 0.7 TOTAL BODY TOTAL OTHER COMMENTS: Normal bone densitometry of the spine. Normal bone densitometry of the right hip. There is low bone density of the left hip. The density of the spine has decreased 3.5% since 03/03/2017. The density of the left hip has decreased 12.6% since 03/03/2017. The density of the right hip has decreased 11.6% since 03/03/2017. The decreased density of the spine does represent a significant change. The decreased density of the left hip does represent a significant change. The decreased density of the right hip does represent a significant change. FOLLOW-UP: Recommendation for the next bone density exam: 2 years. ROBBIN
== END ==
LOC: M WHC 12:11
PROVIDERS: ATTEND Physician Assistant Medical
DX: M81.0 Age-related osteoporosis without current pathological fracture (principal)

== ENCOUNTER → 2019-04-25 | Outpatient (REF) | payer MEDICARE, MEDICAID ==
[~2019-04-25] MED LIST changes: +CLON0.5T2 PO; -CLON0.5T8 PO; +FENO48TA13 PO; -FENO48TA2 PO; -OMEP40CA2 PO; +OMEP40CA97 PO
[2019-04-25 15:35] LABS: ALBUMIN 3.8 GM/DL (3.2-5.2); BILIRUBIN,TOTAL 0.3 MG/DL (0.2-1.0); CALCIUM LEVEL 9.9 MG/DL (8.8-10.2); CREATININE FOR GFR 1.25 MG/DL (0.55-1.30); FREE T4 1.17 NG/DL (0.76-1.46); GLOMERULAR FILTRATION RATE 45.4 (>45); POTASSIUM SERUM 4.2 MEQ/L (3.5-5.1); PTH INTACT 137.1 PG/ML (18.5-88.0); THYROID STIMULATING HORMONE 1.8 uIU/ML (0.358-3.740); TOTAL 25(OH) VITAMIN D 21.2 NG/ML (30.0-100.0); TOTAL PROTEIN 8.4 GM/DL (6.4-8.2)
== END ==
LOC: M SFHCPLAZ 13:38
PROVIDERS: ATTEND Physician Assistant Medical
DX: N18.3 Chronic kidney disease, stage 3 (moderate) (principal); F41.9 Anxiety disorder, unspecified; G62.9 Polyneuropathy, unspecified; F32.9 Major depressive disorder, single episode, unspecified
CPT/HCPCS: 36415; 80053; 82306; 82607; 83970; 84207; 84439; 84443; G0463

== ENCOUNTER → 2019-05-11 | Outpatient (CLI) | payer MEDICARE, MEDICAID ==
--- NOTE | 2019-05-11 11:09 | REP ---
ULTRASOUND ABDOMINAL AORTA: Real-time sonographic evaluation of the abdominal aorta performed and compared to a prior study of 10/22/2018. Study is limited due to patient body habitus and bowel gas. Aortobiiliac stent is not well visualized. There is again an elongated fusiform aneurysm of the mid and distal abdominal aorta. Maximum AP diameter is 4.6 cm in transverse 6 cm similar to the prior study. It extends for a length of about 10 cm. More proximally the maximum AP diameter of the abdominal aorta is 3.2 to 3.3 cm. Common iliac arteries are ectatic, right measuring 1.6 cm and left 1.7 cm in AP dimension respectively. Patent flow is seen throughout. IMPRESSION: No change in elongated fusiform aneurysm mid and distal abdominal aorta. Aortobiiliac stent not well visualized sonographically. Electronically Signed by Anuj Humphreys MD 05/11/2019 11:37 A
== END ==
LOC: M RAD 09:25
PROVIDERS: ATTEND Physician Assistant
DX: I71.4 Abdominal aortic aneurysm, without rupture (principal)

== ENCOUNTER → 2019-07-11 | Outpatient (CLI) | payer MEDICARE, MEDICAID ==
[~2019-07-11] MED LIST changes: -BUPR300T34 PO; +BUPR300T92 PO; -FENO145T13 PO; +FENO145T7 PO; -FENO48TA13 PO; +FENO48TA7 PO; +ONDA-83 PO; -ONDA4TAB5 PO
--- NOTE | 2019-07-12 08:48 | REP ---
Clinical: History of abdominal aortic aneurysm repair. Technique: Axial noncontrast images from the lung bases to the pubic symphysis with coronal and sagittal re-formations. Comparison: 07/18/2018. Findings: The aortobi-iliac stent graft extends from above the level of the renal arteries through the common iliac arteries and appears relatively similar in appearance current examination demonstrates the excluded infrarenal abdominal aorta to measure up to approximately 4.9 cm maximal diameter (previously measuring 4.6 cm maximal diameter). No periaortic inflammatory changes or fluid noted. No intraperitoneal or retroperitoneal hemorrhage or fluid identified. Liver, spleen, pancreas, and bilateral adrenal glands are essentially normal/stable for noncontrast evaluation. The kidneys again demonstrate age-related changes and mild presumed chronic perinephric stranding similar to prior examination without hydronephrosis or nephrolithiasis. 1.7 cm Left renal hypodensity consistent with stable cyst. The enteric system is without obstruction or acute inflammatory process. Diverticulosis noted without acute diverticulitis. Pelvis demonstrates normal bladder and age-appropriate uterus/adnexa. No adenopathy. Musculoskeletal structures demonstrate degenerative changes. Lung bases are essentially clear. Impression: 1. Aortobi-iliac stent graft appears relatively stable. Minimal increased diameter to the infrarenal excluded abdominal aorta is nonspecific and possibly transient. However, lack of contrast images cannot exclude subtle endoleak. No periaortic inflammatory changes, fluid or evidence for ascites/hemoperitoneum. 2. Diverticulosis. 3. Stable 1.7 cm left renal cyst. Electronically Signed by Mo Mcmahon MD 07/12/2019 08:39 A
== END ==
LOC: M RAD 11:13
PROVIDERS: ATTEND Surgery
DX: Z09 Encounter for follow-up examination after completed treatment for conditions other than malignant neoplasm (principal)

== ENCOUNTER → 2019-08-01 | Outpatient (REF) | payer MEDICARE, MEDICAID ==
[2019-08-01 10:25] LABS: ALBUMIN 3.6 GM/DL (3.2-5.2); BILIRUBIN,TOTAL 0.2 MG/DL (0.2-1.0); CALCIUM LEVEL 10.3 MG/DL (8.8-10.2); CREATININE FOR GFR 1.04 MG/DL (0.55-1.30); GLOMERULAR FILTRATION RATE 56.1 (>45); POTASSIUM SERUM 4.3 MEQ/L (3.5-5.1); TOTAL PROTEIN 7.9 GM/DL (6.4-8.2)
== END ==
PROVIDERS: ATTEND Physician Assistant Medical
DX: R91.1 Solitary pulmonary nodule (principal)

== ENCOUNTER → 2019-08-02 | Outpatient (CLI) | payer MEDICARE, MEDICAID ==
[~2019-08-02] MED LIST changes: +ISOVUE-370 76% 100ML VIAL (Q9967) As Ordered ONE
--- NOTE | 2019-08-02 14:59 | REP ---
CT of the chest without IV contrast for pulmonary nodule. Followup: Comparisons are 07/18/2018 and 01/21/2016. There is an 8 mm pleural-based lung nodule medially in the superior segment of the left lower lobe on image 34. This is unchanged from both prior studies, therefore likely represents a stable granuloma. No other lung nodules or masses are identified. There are no infiltrates. No pleural effusions. There is no mediastinal or hilar lymph node enlargement. There is no axillary lymph node enlargement. The thoracic aorta is unremarkable except for occasional calcified atheroma. Cardiac size is normal. There is coronary artery calcified atheroma. There is no pericardial effusion. The upper abdomen there is no adrenal mass. The visualized areas of the liver, pancreas and spleen are unremarkable. There are surgical clips in the gallbladder fossa. There is an abdominal aorta. Endovascular stent. The visualized portions of the kidneys are unremarkable except for A small Bosniak Bosniak type 1 left renal upper pole cyst, unchanged. Impression: The 8 ml pleural-based lung nodule medially in the superior segment right lower lobe is stable and unchanged from the prior studies as described. Cholecystectomy. Bosniak type 1 left renal cyst. Abdominal aortic endovascular stent. Electronically Signed by Anuj Flowers MD 08/02/2019 02:51 P
== END ==
LOC: M RAD 12:36
PROVIDERS: ATTEND Physician Assistant Medical
DX: R91.1 Solitary pulmonary nodule (principal); N28.1 Cyst of kidney, acquired
CPT/HCPCS: 71260; Q9967

== ENCOUNTER → 2019-11-15 | Outpatient (REF) | payer MEDICARE, MEDICAID ==
[~2019-11-15] MED LIST changes: -ISOVUE-370 76% 100ML VIAL (Q9967) As Ordered ONE; -PARO30TA PO; +PARO30TA65 PO
[2019-11-15 11:40] LABS: BASO % 0.6 % (0.0-1.0); EOS # 0.2 10^3/uL (0.0-0.5); EOS % 2.8 % (0.0-3.0); HEMOGLOBIN 11.1 g/dl (12.0-15.5); LYMPH # 1.5 10^3/uL (1.5-5.0); LYMPH % 27.6 % (24.0-44.0); MEAN CORPUSCULAR HEMOGLOBIN 30.4 pg (27.0-33.0); MEAN CORPUSCULAR HGB CONC 31.7 g/dl (32.0-36.5); MEAN CORPUSCULAR VOLUME 95.9 fl (80.0-96.0); MONO # 0.5 10^3/uL (0.0-0.8); MONO % 8.7 % (0.0-5.0); NEUTROPHILS # 3.2 10^3/uL (1.5-8.5); NEUTROPHILS % 60.1 % (36.0-66.0); PLATELET COUNT, AUTOMATED 261 10^3/uL (150-450); RED BLOOD COUNT 3.65 10^6/uL (4.00-5.40); WHITE BLOOD COUNT 5.3 10^3/uL (4.0-10.0)
[2019-11-15 12:25] LABS: ALBUMIN 2.8 GM/DL (3.2-5.2); BILIRUBIN,TOTAL 0.2 MG/DL (0.2-1.0); CALCIUM LEVEL 9.3 MG/DL (8.8-10.2); CREATININE FOR GFR 1.08 MG/DL (0.55-1.30); FREE T4 0.97 NG/DL (0.76-1.46); GLOMERULAR FILTRATION RATE 53.7 (>45); POTASSIUM SERUM 4.2 MEQ/L (3.5-5.1); THYROID STIMULATING HORMONE 1.69 uIU/ML (0.358-3.740); TOTAL PROTEIN 6.6 GM/DL (6.4-8.2)
[2019-11-15 13:10] LABS: HEMOGLOBIN A1c 5.7 %
== END ==
PROVIDERS: ATTEND Physician Assistant Medical
DX: Z79.899 Other long term (current) drug therapy (principal)

== ENCOUNTER → 2019-11-16 | Outpatient (CLI) | payer MEDICARE, MEDICAID ==
--- NOTE | 2019-11-16 17:31 | REP ---
REASON: History of abdominal aortic aneurysm. The lack of intravenous contrast significantly decreases the sensitivity of the exam. The latest prior for comparison is 07/11/2019, also without contrast. There is no change in appearance of the lung bases. Limited evaluation of the solid intra-abdominal organs show no gross abnormalities or significant changes from the prior exam. Limited evaluation of the pancreas, adrenal glands, and kidneys show no significant changes from the prior exam. Once again, there is a stent graft in place. There is an abdominal aortic aneurysm which appear stable. Without intravenous contrast, whether or not there is an endoleak cannot be stated by this exam. The aortoiliac stent graft is essentially unchanged. No new abnormal densities are seen surrounding the abdominal aorta or iliac arteries. The intra-abdominal and intrapelvic bowel loops and their mesenteries are essentially unchanged and again seen to be within normal limits. No free fluid or free air is seen in the abdomen or pelvis. There is no evidence of an intra-abdominal or intrapelvic mass. Bone window technique throughout the examination shows no change in the osseous structures. IMPRESSION: Essentially stable exam with findings and limitations as described above. Electronically Signed by Hector Luu DO 11/17/2019 08:04 A
== END ==
LOC: M RAD 10:36
PROVIDERS: ATTEND Surgery Vascular Surgery
DX: I71.4 Abdominal aortic aneurysm, without rupture (principal); Z95.828 Presence of other vascular implants and grafts

== ENCOUNTER → 2019-11-21 | Outpatient (REF) | payer MEDICARE, MEDICAID ==
[2019-11-21 10:18] LABS: HEMOGLOBIN A1c 5.8 %
[2019-11-21 10:34] LABS: ALBUMIN 3.2 GM/DL (3.2-5.2); BILIRUBIN,TOTAL 0.2 MG/DL (0.2-1.0); CALCIUM LEVEL 9.5 MG/DL (8.8-10.2); CREATININE FOR GFR 1.25 MG/DL (0.55-1.30); FREE T4 0.99 NG/DL (0.76-1.46); GLOMERULAR FILTRATION RATE 45.4 (>45); THYROID STIMULATING HORMONE 3.4 uIU/ML (0.358-3.740); TOTAL PROTEIN 7.2 GM/DL (6.4-8.2)
== END ==
PROVIDERS: ATTEND Physician Assistant Medical
DX: E83.52 Hypercalcemia (principal); E03.9 Hypothyroidism, unspecified; E66.09 Other obesity due to excess calories; Z79.899 Other long term (current) drug therapy

== ENCOUNTER → 2019-12-16 | Outpatient (CLI) | payer MEDICARE, MEDICAID ==
[~2019-12-16] MED LIST changes: +ACET-683 PO; +ALPR1TAB3 PO; +AMLO1TAB24 PO; -AMLO5TAB6 PO; +BRIN10TA4 PO; +BRIN1TAB3 PO; +CETI-14 PO; +D31000TA2 PO; +MIRA3350 PO; +NEXI40CA PO; +NORT25CA2 PO; +POLYOPD OU; +RA S8.6T3 PO; +ROBI1LIQ9 PO; +TIZA2TAB6 PO; +TOPR25TA PO; +VENTAER INH
--- NOTE | 2019-12-17 08:13 | REP ---
BILATERAL LOWER EXTREMITY DUPLEX DOPPLER ARTERIAL ULTRASOUND: Real-time ultrasound evaluation and duplex Doppler interrogation of bilateral lower extremity arterial systems is performed. JAYSON right 1.1 and left 1.0. There are diffuse triphasic waveforms noted with biphasic waveforms in the bilateral distal anterior tibial arteries and in the left distal posterior tibial artery. Mild diffuse plaquing and narrowing is seen. There is no duplex Doppler sonographic evidence of significant arterial stenosis bilaterally. PEAK SYSTOLIC VELOCITY RIGHT LEFT Common femoral artery 104.5 cm/s 110.5 cm/s Profunda 95.9 74.4 SFA 92.7 79.8 Popliteal 45.9 40.9 Proximal JORGE 32.9 31.2 Tibial/peroneal trunk 46.7 58.0 Proximal TIRE BEADER MAKER 55.8 38.1 Distal TIRE BEADER MAKER 52.5 35.7 Distal JORGE 64.5 45.6 Electronically Signed by Anuj Humphreys MD 12/18/2019 11:24 P
== END ==
LOC: M RAD 10:06
PROVIDERS: ATTEND Physician Assistant Medical
DX: I73.9 Peripheral vascular disease, unspecified (principal)

== ENCOUNTER → 2020-01-16 | Outpatient (REF) | payer MEDICARE, MEDICAID ==
[2020-02-15 14:15] LABS: BASO % 0.4 % (0.0-1.0); EOS # 0.1 10^3/uL (0.0-0.5); EOS % 1.2 % (0.0-3.0); HEMATOCRIT 40.8 % (36.0-47.0); HEMOGLOBIN 12.8 g/dl (12.0-15.5); LYMPH # 2.1 10^3/uL (1.5-5.0); LYMPH % 20.2 % (24.0-44.0); MEAN CORPUSCULAR HEMOGLOBIN 30.2 pg (27.0-33.0); MEAN CORPUSCULAR HGB CONC 31.4 g/dl (32.0-36.5); MEAN CORPUSCULAR VOLUME 96.2 fl (80.0-96.0); MONO # 0.9 10^3/uL (0.0-0.8); NEUTROPHILS # 7.2 10^3/uL (1.5-8.5); NEUTROPHILS % 68.8 % (36.0-66.0); PLATELET COUNT, AUTOMATED 341 10^3/uL (150-450); RED BLOOD COUNT 4.24 10^6/uL (4.00-5.40); WHITE BLOOD COUNT 10.4 10^3/uL (4.0-10.0)
[2020-02-28 11:05] LABS: ALBUMIN 3.8 GM/DL (3.2-5.2); BILIRUBIN,TOTAL 0.2 MG/DL (0.2-1.0); CALCIUM LEVEL 10.1 MG/DL (8.8-10.2); CHOLESTEROL RISK RATIO 4.591 (<5); CREATININE FOR GFR 1.51 MG/DL (0.55-1.30); FREE T4 0.99 NG/DL (0.76-1.46); GLOMERULAR FILTRATION RATE 36.5 (>45); POTASSIUM SERUM 4.6 MEQ/L (3.5-5.1); THYROID STIMULATING HORMONE 1.77 uIU/ML (0.358-3.740); TOTAL PROTEIN 8.1 GM/DL (6.4-8.2)
== END ==
LOC: M SFHCPLAZ 07:19
PROVIDERS: ATTEND Physician Assistant Medical
DX: I10 Essential (primary) hypertension (principal); E78.2 Mixed hyperlipidemia; E03.9 Hypothyroidism, unspecified
CPT/HCPCS: 36415; 80053; 80061; 84439; 84443; 85025; G0463

== ENCOUNTER 2020-02-04 16:22 | Emergency (ER) | payer MEDICARE, MEDICAID ==
[~2020-02-04] VITALS: Ht 160 cm; Wt 99.5 kg
[~2020-02-04 16:22] MED LIST changes: -ACET-683 PO; -ALPR1TAB3 PO; -BRIN10TA4 PO; -BRIN1TAB3 PO; -CETI-14 PO; -D31000TA2 PO; -MIRA3350 PO; -NEXI40CA PO; -NORT25CA2 PO; -POLYOPD OU; -RA S8.6T3 PO; -ROBI1LIQ9 PO; -TIZA2TAB6 PO; -TOPR25TA PO; -VENTAER INH
[2020-02-04] MEDS ORDERED: FLON1SPR (18:42)
[2020-02-04] MEDS ORDERED: CETI-14 PO (18:42)
[2020-02-04] MEDS ORDERED: TOPR25TA PO (18:42)
[2020-02-04] MEDS ORDERED: NORT25CA2 PO (18:42)
[2020-02-04] MEDS ORDERED: BRIN1TAB3 PO (18:42)
[2020-02-04] MEDS ORDERED: D31000TA2 PO (18:42)
[2020-02-04] MEDS ORDERED: QUET5TAB PO (18:42)
[2020-02-04] MEDS ORDERED: NEXI40CA PO (18:42)
[2020-02-04] MEDS ORDERED: HYDR10TAB PO (18:42)
[2020-02-04] MEDS ORDERED: BRIN10TA4 PO (18:42)
[2020-02-04] MEDS ORDERED: ACET-683 PO (18:50)
[2020-02-04] MEDS ORDERED: ALPR1TAB3 PO (18:50)
[2020-02-04] MEDS ORDERED: ONDA-83 PO (18:50)
[2020-02-04] MEDS ORDERED: TIZA2TAB6 PO (18:50)
[2020-02-04] MEDS ORDERED: RA S8.6T3 PO (18:50)
[2020-02-04] MEDS ORDERED: VENTAER INH (18:50)
[2020-02-04] MEDS ORDERED: MIRA3350 PO (18:50)
[2020-02-04] MEDS ORDERED: POLYOPD OU (18:50)
[2020-02-04 19:14] LABS: BASO % 0.4 % (0.0-1.0); EOS # 0.1 10^3/uL (0.0-0.5); EOS % 1.6 % (0.0-3.0); HEMOGLOBIN 11.5 g/dl (12.0-15.5); LYMPH # 1.7 10^3/uL (1.5-5.0); LYMPH % 23.8 % (24.0-44.0); MEAN CORPUSCULAR HGB CONC 31.9 g/dl (32.0-36.5); MONO # 0.6 10^3/uL (0.0-0.8); MONO % 8.8 % (0.0-5.0); NEUTROPHILS # 4.5 10^3/uL (1.5-8.5); NEUTROPHILS % 65.1 % (36.0-66.0); PLATELET COUNT, AUTOMATED 300 10^3/uL (150-450); RED BLOOD COUNT 3.83 10^6/uL (4.00-5.40)
[2020-02-04 19:30] LABS: CALCIUM LEVEL 9.4 MG/DL (8.8-10.2); CREATININE FOR GFR 1.35 MG/DL (0.55-1.30); GLOMERULAR FILTRATION RATE 41.5 (>45); POTASSIUM SERUM 4.8 MEQ/L (3.5-5.1)
[2020-02-04] MEDS ORDERED: ROBI1LIQ9 PO (19:56)
[2020-02-04] MEDS ORDERED: FLON1SPR NARES (19:56)
[2020-02-04] MEDS ORDERED: guaiFENesin SYRUP 200 MG/10 ML UDC PO ONE (20:00)
[2020-02-04 20:31] VITALS: BP 118/71
--- NOTE | 2020-03-05 15:44 | REP ---
PORTABLE CHEST X-RAY CLINICAL: Cough and shortness of breath. COMPARISON: 07/18/2018. FINDINGS: Mediastinum and cardiac silhouette normal. Lung ness clear. No focal consolidation, effusion, or pneumothorax. Skeletal structures intact. IMPRESSION: No acute cardiopulmonary process. MTDD
== END 2020-02-04 20:46 | disposition home or self-care (01) ==
LOC: M ED 16:22 → EDBD 16:22 → M ED 20:46
DX: R09.82 Postnasal drip (principal); R05 Cough; I10 Essential (primary) hypertension; E78.5 Hyperlipidemia, unspecified; N18.3 Chronic kidney disease, stage 3 (moderate); E03.9 Hypothyroidism, unspecified; F41.9 Anxiety disorder, unspecified; F32.9 Major depressive disorder, single episode, unspecified; Z79.899 Other long term (current) drug therapy; Z88.8 Allergy status to other drugs, medicaments and biological substances; Z88.0 Allergy status to penicillin; Z91.040 Latex allergy status

== ENCOUNTER → 2020-02-27 | Outpatient (REF) | payer MEDICARE, MEDICAID ==
[~2020-02-27] MED LIST changes: +ACET-683 PO; +ALPR1TAB3 PO; +BRIN10TA4 PO; +BRIN1TAB3 PO; +CETI-14 PO; +D31000TA2 PO; +MIRA3350 PO; +NEXI40CA PO; +NORT25CA2 PO; +POLYOPD OU; +RA S8.6T3 PO; +ROBI1LIQ9 PO; +TIZA2TAB6 PO; +TOPR25TA PO; +VENTAER INH
[2020-02-27 10:27] LABS: HEMOGLOBIN A1c 5.7 %
[2020-02-27 10:49] LABS: ALBUMIN 2.9 GM/DL (3.2-5.2); BILIRUBIN,TOTAL 0.2 MG/DL (0.2-1.0); CALCIUM LEVEL 9.2 MG/DL (8.8-10.2); CREATININE FOR GFR 1.16 MG/DL (0.55-1.30); GLOMERULAR FILTRATION RATE 49.5 (>45); POTASSIUM SERUM 4.4 MEQ/L (3.5-5.1); THYROID STIMULATING HORMONE 1.97 uIU/ML (0.358-3.740); THYROXINE (T4) 9.1 UG/DL (4.5-12.0); TOTAL PROTEIN 6.7 GM/DL (6.4-8.2)
== END ==
PROVIDERS: ATTEND Physician Assistant Medical
DX: E03.9 Hypothyroidism, unspecified (principal); E83.52 Hypercalcemia; E66.09 Other obesity due to excess calories

== ENCOUNTER 2020-04-30 08:56 | Emergency (ER) | payer MEDICARE, MEDICAID ==
[~2020-04-30] VITALS: Ht 167.6 cm; Wt 100.9 kg
[~2020-04-30 08:56] MED LIST changes: +MIRT-62 PO; -REME15TA PO
[2020-04-30] MEDS ORDERED: NS 500 ML IV ONE (09:45)
[2020-04-30 10:08] LABS: BASO % 0.4 % (0.0-1.0); EOS # 0.3 10^3/uL (0.0-0.5); EOS % 3.7 % (0.0-3.0); HEMATOCRIT 39.5 % (36.0-47.0); HEMOGLOBIN 12.4 g/dl (12.0-15.5); LYMPH # 1.7 10^3/uL (1.5-5.0); LYMPH % 21.7 % (24.0-44.0); MEAN CORPUSCULAR HGB CONC 31.4 g/dl (32.0-36.5); MEAN CORPUSCULAR VOLUME 95.4 fl (80.0-96.0); MONO # 0.6 10^3/uL (0.0-0.8); MONO % 7.9 % (0.0-5.0); NEUTROPHILS # 5.2 10^3/uL (1.5-8.5); NEUTROPHILS % 65.9 % (36.0-66.0); PLATELET COUNT, AUTOMATED 271 10^3/uL (150-450); RED BLOOD COUNT 4.14 10^6/uL (4.00-5.40); WHITE BLOOD COUNT 7.9 10^3/uL (4.0-10.0)
--- NOTE | 2020-04-30 10:08 | REPVR ---
PROCEDURE INFORMATION: Exam: CT Head Without Contrast Exam date and time: 04/30/2020 9:49 AM Age: 70 years old Clinical indication: Pain; Headache; Additional info: Fall, face injury TECHNIQUE: Imaging protocol: Computed tomography of the head without contrast. Radiation optimization: All CT scans at this facility use at least one of these dose optimization techniques: automated exposure control; mA and/or kV adjustment per patient size (includes targeted exams where dose is matched to clinical indication); or iterative reconstruction. COMPARISON: CT Head without contrast 06/20/2018 11:22 AM FINDINGS: Brain: Normal. No hemorrhage. Unremarkable white matter. No mass effect. Cerebral ventricles: The ventricles and sulci are stable in configuration, with similar atrophy. Bones/joints: Unremarkable. No acute fracture. Paranasal sinuses: Visualized sinuses are unremarkable. No fluid levels. Mastoid air cells: Visualized mastoid air cells are well aerated. Vasculature: Intracranial atherosclerotic vascular calcifications are again present. Soft tissues: Contusion over the right zygoma. IMPRESSION: No CT evidence for acute intracranial abnormality. Electronically signed by: Dwaine Vaughan On 04/30/2020 10:08:18 AM
--- NOTE | 2020-04-30 10:11 | REPVR ---
PROCEDURE INFORMATION: Exam: CT Maxillofacial Without Contrast Exam date and time: 04/30/2020 9:49 AM Age: 70 years old Clinical indication: Face pain; Additional info: Fall, face injury TECHNIQUE: Imaging protocol: Computed tomography images of the face without contrast. Radiation optimization: All CT scans at this facility use at least one of these dose optimization techniques: automated exposure control; mA and/or kV adjustment per patient size (includes targeted exams where dose is matched to clinical indication); or iterative reconstruction. COMPARISON: CT Maxilofacial w/out contrast 01/09/2017 7:42 PM FINDINGS: Orbital cavity: The globes appear grossly intact, and no definite intraorbital hematoma is identified. Bones/joints: The orbital floors and lamina papyracea are intact. The temporomandibular joints are normally aligned. They again demonstrate degenerative changes. No acute fracture is identified. There is again mild rightward nasal septal deviation. Paranasal sinuses: Normal. No air-fluid levels. Soft tissues: There is a soft tissue contusion over the right zygoma. Dental: The patient is noted to be edentulous. IMPRESSION: Soft tissue contusion over the right zygoma without acute fracture identified. Electronically signed by: Dwaine Vaughan On 04/30/2020 10:11:42 AM
[2020-04-30 10:18] LABS: INR 1.01; PROTHROMBIN TIME 13.5 SECONDS (12.5-14.3)
[2020-04-30 10:19] LABS: PARTIAL THROMBOPLASTIN TIME 28.1 SECONDS (24.2-38.5)
--- NOTE | 2020-04-30 10:20 | REPVR ---
PROCEDURE INFORMATION: Exam: CT Cervical Spine Without Contrast Exam date and time: 04/30/2020 9:49 AM Age: 70 years old Clinical indication: Neck pain; Additional info: Fall, face injury TECHNIQUE: Imaging protocol: Computed tomography images of the cervical spine without contrast. Radiation optimization: All CT scans at this facility use at least one of these dose optimization techniques: automated exposure control; mA and/or kV adjustment per patient size (includes targeted exams where dose is matched to clinical indication); or iterative reconstruction. COMPARISON: CT Spine,cervical w/o contrast 01/09/2017 7:42 PM FINDINGS: Bones/joints: Vertebral body heights are intact. There are again grade 1 spondylolistheses at C3-C4 and C7-T1. Alignment is otherwise maintained. No acute fracture is identified. There are again productive changes about the dens. Discs/Spinal canal/Neural foramina: There is multilevel spondylosis with variable osteophytic encroachment of several neural foramina. CT is not optimal for the evaluation of the discs, neural foramina or spinal canal or cord. The appearance is not significantly changed. There again appears to be spinal stenosis at C5-C6 and C6-C7. Soft tissues: The prevertebral soft tissues are not significantly swollen. Lungs: The visualized lung apices are clear. Pleural space: No apical pneumothorax is identified. Vasculature: Atherosclerotic vascular calcifications are again present. IMPRESSION: 1. No acute fracture or dislocation identified. 2. Spondylosis with apparent multilevel spinal stenosis, fairly similar in appearance to 01/09/17. The discs and integrity of the cord could be better evaluated by means of MRI as clinically appropriate. Electronically signed by: Dwaine Vaughan On 04/30/2020 10:21:00 AM
--- NOTE | 2020-04-30 10:29 | REP ---
INDICATION: fall COMPARISON: None. TECHNIQUE: AP, lateral, bilateral oblique views of the right and left knee. FINDINGS: Right knee is intact and age-appropriate. No acute fracture or dislocation. No effusion. No subcutaneous emphysema or foreign body. Left knee demonstrates mild degenerative changes including small spur along the lateral femoral condyle, increased sclerosis to the tibial plateau and minimal medial joint space narrowing. No acute fracture or dislocation. No effusion. No subcutaneous emphysema or foreign body. IMPRESSION: No evidence for acute fracture or dislocation. <Electronically signed by Mo Mcmahon > 04/30/20 102
--- NOTE | 2020-04-30 10:30 | REP ---
INDICATION: fall COMPARISON: None. TECHNIQUE: AP, and frog-lateral views of the right femur. FINDINGS: Age-related changes noted. No acute fracture or dislocation. No subcutaneous emphysema or foreign body. IMPRESSION: . No acute fracture or dislocation. <Electronically signed by Mo Mcmahon > 04/30/20 1026
--- NOTE | 2020-04-30 10:30 | REP ---
INDICATION: CHEST PAIN COMPARISON: 02/04/2020 TECHNIQUE: Portable AP view of the chest FINDINGS: The mediastinum and cardiac silhouette are stable and within normal limits for portable technique. The lung ness are clear without acute consolidation, effusion, or pneumothorax. Skeletal structures are intact. IMPRESSION: No acute cardiopulmonary process appreciated. <Electronically signed by Mo Mcmahon > 04/30/20 1021
[2020-04-30 10:33] LABS: ALT/SGPT 27 U/L (12-78); BLOOD UREA NITROGEN 30 MG/DL (7-18); CALCIUM LEVEL 9.8 MG/DL (8.8-10.2); CARBON DIOXIDE LEVEL 33 MEQ/L (21-32); CHLORIDE LEVEL 102 MEQ/L (98-107); CPK CREATINE PHOSPHOKINASE 46 U/L (26-192); CREATININE FOR GFR 1.48 MG/DL (0.55-1.30); GLOMERULAR FILTRATION RATE 37.2 (>45); GLUCOSE, FASTING 102 MG/DL (70-100); POTASSIUM SERUM 4.6 MEQ/L (3.5-5.1); SODIUM LEVEL 139 MEQ/L (136-145)
[2020-04-30 10:34] LABS: ALBUMIN 3.4 GM/DL (3.2-5.2); BILIRUBIN,DIRECT < 0.1 MG/DL (0.0-0.2); BILIRUBIN,TOTAL 0.2 MG/DL (0.2-1.0); CK-MB VALUE MASS < 1.0 NG/ML (<3.6); FREE T4 1.06 NG/DL (0.76-1.46); LIPASE 89 U/L (73-393); MB/CK RELATIVE INDEX 2.17 (< OR =4); TOTAL PROTEIN 7.5 GM/DL (6.4-8.2); TROPONIN I < 0.02 NG/ML (< 0.10)
[2020-04-30] MEDS ORDERED: LIDOCAINE 2% 5ML JELLY UROJET TOP ONE (11:00)
[2020-04-30] MEDS ORDERED: NS 250 ML IV ONE (11:45)
[2020-04-30 14:20] VITALS: BP 129/75
--- NOTE | 2020-04-30 22:03 | ECGEPIP ---
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
--- NOTE | 2020-05-02 10:28 | ED PDOC ---
Post-Departure Follow-Up monique alexis faxed formal report of ct c spine for fu Erica Schulz MD May 02, 2020 10:28
== END 2020-04-30 14:35 | disposition home or self-care (01) ==
LOC: M ED 08:56 → EDBD 08:56 → M ED 14:35
DX: S80.01XA Contusion of right knee, initial encounter (principal); S80.02XA Contusion of left knee, initial encounter; S80.11XA Contusion of right lower leg, initial encounter; S00.83XA Contusion of other part of head, initial encounter; M17.12 Unilateral primary osteoarthritis, left knee; I95.1 Orthostatic hypotension; R42 Dizziness and giddiness; W01.198A Fall on same level from slipping, tripping and stumbling with subsequent striking against other object, initial encounter; Y92.121 Bathroom in nursing home as the place of occurrence of the external cause; Y93.01 Activity, walking, marching and hiking; Y99.8 Other external cause status; I12.9 Hypertensive chronic kidney disease with stage 1 through stage 4 chronic kidney disease, or unspecified chronic kidney disease; E78.9 Disorder of lipoprotein metabolism, unspecified; N18.30 Chronic kidney disease, stage 3 unspecified; E07.9 Disorder of thyroid, unspecified; F41.9 Anxiety disorder, unspecified; F32.9 Major depressive disorder, single episode, unspecified; Z87.440 Personal history of urinary (tract) infections; F17.200 Nicotine dependence, unspecified, uncomplicated; Z79.899 Other long term (current) drug therapy; Z88.0 Allergy status to penicillin; Z91.040 Latex allergy status; Z88.8 Allergy status to other drugs, medicaments and biological substances

== ENCOUNTER → 2020-05-23 | Outpatient (REF) | payer MEDICARE, MEDICAID ==
[2020-05-24 09:53] LABS: INFLUENZA A AMPLIFICATION NEGATIVE (NEGATIVE); INFLUENZA B AMPLIFICATION NEGATIVE (NEGATIVE)
== END ==
PROVIDERS: ATTEND Internal Medicine
DX: E55.9 Vitamin D deficiency, unspecified (principal); Z20.828 Contact with and (suspected) exposure to other viral communicable diseases; Z23 Encounter for immunization
CPT/HCPCS: 36415; 80053; 82306; 83970; 87502; 90471; 90682; G0463; U0003

== ENCOUNTER → 2020-05-28 | Outpatient (REF) | payer MEDICARE, MEDICAID | PROVIDERS: ATTEND Internal Medicine | DX: Z20.828 Contact with and (suspected) exposure to other viral communicable diseases (principal) ==

== ENCOUNTER → 2020-06-04 | Outpatient (REF) | payer MEDICARE, MEDICAID | PROVIDERS: ATTEND Internal Medicine | DX: Z20.828 Contact with and (suspected) exposure to other viral communicable diseases (principal) ==

== ENCOUNTER → 2020-06-11 | Outpatient (REF) | payer MEDICARE, MEDICAID ==
[~2020-06-11] MED LIST changes: -BUPR150T3 PO; +BUPR150T4 PO; -LISI-542; -LISI-542 PO; +LISI-898; +LISI-898 PO; +LISI10TA22 PO; -LISI10TA4 PO; +QUET50TA3 PO; -QUET5TAB PO; +TIZA1TAB12 PO; -TIZA2TAB6 PO
== END ==
PROVIDERS: ATTEND Internal Medicine
DX: Z11.52 Encounter for screening for COVID-19 (principal)

== ENCOUNTER → 2020-06-18 | Outpatient (REF) | payer MEDICARE, MEDICAID | PROVIDERS: ATTEND Internal Medicine | DX: Z20.822 Contact with and (suspected) exposure to COVID-19 (principal) ==

== ENCOUNTER → 2020-06-25 | Outpatient (REF) | payer MEDICARE, MEDICAID | PROVIDERS: ATTEND Internal Medicine | DX: Z20.822 Contact with and (suspected) exposure to COVID-19 (principal) ==

== ENCOUNTER → 2020-07-02 | Outpatient (REF) | payer MEDICARE, MEDICAID | PROVIDERS: ATTEND Internal Medicine | DX: Z20.822 Contact with and (suspected) exposure to COVID-19 (principal) ==

== ENCOUNTER → 2020-07-09 | Outpatient (REF) | payer MEDICARE, MEDICAID ==
[~2020-07-09] MED LIST changes: +LISI-542; +LISI-542 PO; -LISI-898; -LISI-898 PO; -LISI10TA22 PO; +LISI10TA4 PO; -QUET50TA3 PO; +QUET5TAB PO
== END ==
PROVIDERS: ATTEND Internal Medicine
DX: Z20.822 Contact with and (suspected) exposure to COVID-19 (principal)

== ENCOUNTER → 2020-07-16 | Outpatient (REF) | payer MEDICARE, MEDICAID ==
[~2020-07-16] MED LIST changes: -LISI-542; -LISI-542 PO; +LISI-898; +LISI-898 PO; +LISI10TA22 PO; -LISI10TA4 PO; +QUET50TA3 PO; -QUET5TAB PO
== END ==
PROVIDERS: ATTEND Internal Medicine
DX: Z20.822 Contact with and (suspected) exposure to COVID-19 (principal)

== ENCOUNTER → 2020-07-23 | Outpatient (CLI) | payer MEDICARE, MEDICAID ==
--- NOTE | 2020-07-23 15:24 | REP ---
INDICATION: TIFFANIE BREAST U/S, SCREENING. Patient declines screening mammography. Bilateral screening breast ultrasound. COMPARISON: None. TECHNIQUE: Whole breast bilateral screening sonography. FINDINGS: Heterogeneous fibroglandular background echotexture is seen bilaterally. No cyst, mass, area of acoustic shadowing, or architectural distortion is seen in either breast. IMPRESSION: BI-RADS category 1 findings. This patient's estimated Tyrer-Cuzick lifetime risk assessment for breast cancer is 5.1%. <Electronically signed by Tyrone Graham > 07/23/20 [id number]
== END ==
LOC: M WHC 12:43
PROVIDERS: ATTEND Physician Assistant Medical
DX: R92.2 Inconclusive mammogram (principal)

== ENCOUNTER → 2020-07-23 | Outpatient (REF) | payer MEDICARE, MEDICAID | PROVIDERS: ATTEND Internal Medicine | DX: Z20.822 Contact with and (suspected) exposure to COVID-19 (principal) ==

== ENCOUNTER → 2020-07-30 | Outpatient (REF) | payer MEDICARE, MEDICAID | PROVIDERS: ATTEND Internal Medicine | DX: Z20.822 Contact with and (suspected) exposure to COVID-19 (principal) ==

== ENCOUNTER → 2020-08-15 | Outpatient (REF) | payer MEDICARE, MEDICAID ==
[~2020-08-15] MED LIST changes: +BUPR150T12 PO; -BUPR150T4 PO
[2020-08-15 19:26] LABS: ALBUMIN 3.6 GM/DL (3.2-5.2); BILIRUBIN,TOTAL 0.2 MG/DL (0.2-1.0); CALCIUM LEVEL 9.8 MG/DL (8.8-10.2); CREATININE FOR GFR 1.3 MG/DL (0.55-1.30); FREE T4 0.92 NG/DL (0.76-1.46); GLOMERULAR FILTRATION RATE 43.2 (>45); POTASSIUM SERUM 4.4 MEQ/L (3.5-5.1); THYROID STIMULATING HORMONE 1.3 uIU/ML (0.358-3.740); TOTAL PROTEIN 7.8 GM/DL (6.4-8.2)
[2020-08-15 19:27] LABS: PTH INTACT 123.6 PG/ML (18.5-88.0); TOTAL 25(OH) VITAMIN D 38.9 NG/ML (30.0-100.0)
== END ==
LOC: M SFHCPLAZ 15:42
PROVIDERS: ATTEND Physician Assistant Medical
DX: E55.9 Vitamin D deficiency, unspecified (principal); E03.9 Hypothyroidism, unspecified

== ENCOUNTER → 2020-10-02 | Outpatient (REF) | payer MEDICARE, MEDICAID ==
[2020-10-02 11:46] LABS: FREE T4 0.94 NG/DL (0.76-1.46); THYROID STIMULATING HORMONE 2.14 uIU/ML (0.358-3.740)
== END ==
PROVIDERS: ATTEND Physician Assistant Medical
DX: E03.9 Hypothyroidism, unspecified (principal)

== ENCOUNTER → 2020-12-25 | Outpatient (CLI) | payer MEDICARE, MEDICAID ==
[~2020-12-25] MED LIST changes: +OMEP40CA4 PO; -OMEP40CA97 PO
--- NOTE | 2020-12-25 13:53 | REP ---
INDICATION: AAA. COMPARISON: 11/16/2019, 07/11/2019, ultrasound 05/11/2019 TECHNIQUE: Noncontrast imaging through the abdomen pelvis with coronal and sagittal reconstructions provided FINDINGS: CT abdomen: Lung bases remain clear. Heart size unchanged. Coronary artery calcifications are present there is atherosclerotic calcification the ascending and descending thoracic aorta. Appearance unchanged no hiatal hernia. Liver, spleen, visualized pancreas, adrenal glands and intra-loops of colon are unchanged. Gallbladder is absent. There is scattered diverticulosis in the left colon without diverticulitis or colitis. Small bowel loops are without dilatation or air-fluid levels. There is mild fusiform dilatation of the proximal abdominal aorta up to 3.1 cm. There is an infrarenal abdominal aortic aneurysm with an aorto bi-iliac stent graft. By my direct measurements maximum diameter in AP dimension 4.6 cm is unchanged from 13 months ago. Stent graft position appears unchanged. There are some peripheral calcification in the aorta. I do not see evidence of a retroperitoneal or periaortic leak. Without contrast, an endoleak cannot be defined or excluded. No periaortic, other retroperitoneal or mesenteric pathologic size nodes. Kidneys show some sinus lipomatosis without hydronephrosis, solid mass or collecting system calculi. The does appear to be a nonobstructing calculus in the lower pole pyramid. Peripheral hypodense exophytic cortical cyst on the left side unchanged. Ureters without dilatation or stone. The lung windows show no sign of perforation or free air. The bone windows show degenerative changes in the spine at the lumbosacral junction but these are stable and age-appropriate. No compression fractures. Visualized ribs are intact. CT pelvis: Distal left colon proximal sigmoid with some scattered diverticulosis without diverticulitis, colitis stricture or mass uterus anteverted not enlarged and tilted towards the right small bowel loops in the pelvis were normal no adnexal masses identified there is no pelvic free fluid or adenopathy. No ventral or inguinal hernia nor pathologic sized inguinal adenopathy. Bladder shows no stone, mass or wall thickening. No distal ureteral dilatation or stone. The bony sacrum shows a sclerotic bone island in left-sided 1st sacral segment. SI joints intact. The iliac bones, acetabulae, ischia and femoral heads showed age-appropriate degenerative change. IMPRESSION: Infrarenal abdominal AA no aortic aneurysm diffuse from appearance and aorto bi-iliac stent graft as before, unchanged there are atherosclerotic calcifications and maximum diameters in AP by transverse dimensions are unchanged by my direct measurement from the previous study. No evidence of leak or retroperitoneal hematoma. <Electronically signed by Lamont Estrada > 12/25/20 [id number]
== END ==
LOC: M RAD 12:16
PROVIDERS: ATTEND Surgery
DX: I71.4 Abdominal aortic aneurysm, without rupture (principal)

== ENCOUNTER → 2021-01-22 | Outpatient (CLI) | payer MEDICARE, MEDICAID ==
[~2021-01-22] MED LIST changes: -QUET50TA3 PO; +QUET50TA4 PO
[2021-01-22 15:20] LABS: BASO % 0.6 % (0.0-1.0); EOS # 0.1 10^3/uL (0.0-0.5); EOS % 1.7 % (0.0-3.0); HEMATOCRIT 43.2 % (36.0-47.0); HEMOGLOBIN 13.3 g/dl (12.0-15.5); LYMPH # 1.8 10^3/uL (1.5-5.0); LYMPH % 24.4 % (24.0-44.0); MEAN CORPUSCULAR HEMOGLOBIN 29.1 pg (27.0-33.0); MEAN CORPUSCULAR HGB CONC 30.8 g/dl (32.0-36.5); MEAN CORPUSCULAR VOLUME 94.5 fl (80.0-96.0); MONO # 0.5 10^3/uL (0.0-0.8); MONO % 7.3 % (2.0-8.0); NEUTROPHILS # 4.8 10^3/uL (1.5-8.5); NEUTROPHILS % 65.7 % (36.0-66.0); PLATELET COUNT, AUTOMATED 298 10^3/uL (150-450); RED BLOOD COUNT 4.57 10^6/uL (4.00-5.40); WHITE BLOOD COUNT 7.2 10^3/uL (4.0-10.0)
[2021-01-22 15:39] LABS: HEMOGLOBIN A1c 5.7 %
[2021-01-22 15:45] LABS: ALBUMIN 3.5 GM/DL (3.2-5.2); BILIRUBIN,TOTAL 0.3 MG/DL (0.2-1.0); CALCIUM LEVEL 9.4 MG/DL (8.8-10.2); CHOLESTEROL RISK RATIO 4.106 (<5); CREATININE FOR GFR 1.08 MG/DL (0.55-1.30); FREE T4 1.01 NG/DL (0.76-1.46); GLOMERULAR FILTRATION RATE 53.5 (>45); POTASSIUM SERUM 4.3 MEQ/L (3.5-5.1); PTH INTACT 125.1 PG/ML (18.5-88.0); THYROID STIMULATING HORMONE 1.19 uIU/ML (0.358-3.740); TOTAL PROTEIN 7.8 GM/DL (6.4-8.2)
== END ==
LOC: M PLALAB 14:04
PROVIDERS: ATTEND Physician Assistant Medical
DX: M81.0 Age-related osteoporosis without current pathological fracture (principal); I10 Essential (primary) hypertension; F32.9 Major depressive disorder, single episode, unspecified; E78.5 Hyperlipidemia, unspecified; E66.09 Other obesity due to excess calories; E55.9 Vitamin D deficiency, unspecified; Z79.899 Other long term (current) drug therapy

== ENCOUNTER → 2021-02-09 | Outpatient (REF) | payer MEDICARE, MEDICAID ==
[~2021-02-09] MED LIST changes: -FENO48TA7 PO; +FENO48TA8 PO
== END ==
PROVIDERS: ATTEND Physician Assistant Medical
DX: E78.5 Hyperlipidemia, unspecified (principal); E66.09 Other obesity due to excess calories; I10 Essential (primary) hypertension; Z53.8 Procedure and treatment not carried out for other reasons

== ENCOUNTER → 2021-02-27 | Outpatient (CLI) | payer MEDICARE, MEDICAID ==
[~2021-02-27] MED LIST changes: +FENO48TA7 PO; -FENO48TA8 PO
--- NOTE | 2021-02-27 12:15 | DEXAMM ---
INDICATION: POSTMENOPAUSAL BONE LOSS. COMPARISON: 03/14/2019, 03/03/2017. TECHNIQUE: Bone density was measured using dual-energy x-ray absorptiometry (DEXA). FINDINGS: AP SPINE L1-L4 BMD 1.191 g/cm2 Young Adult T-Score 0.0 Age Matched Z-Score 1.6. LT FEMUR, TOTAL BMD 0.955 g/cm2 Young Adult T-Score -0.4 Age Matched Z-Score 1.0. LT NECK BMD 0.837 g/cm2 Young Adult T-Score -1.4 Age Matched Z-Score 0.2. RT FEMUR, TOTAL BMD 1.021 g/cm2 Young Adult T-Score 0.1 Age Matched Z-Score 1.6. RT NECK BMD 0.874 g/cm2 Young Adult T-Score -1.2 Age Matched Z-Score 0.5. IMPRESSION: There is normal bone density of the spine. There is low bone density of the left hip. There is low bone density of the right hip. The density of the spine has decreased 2.4% since the initial exam on 03/03/2017. The density of the spine increased 1.2% since most recent exam on 03/14/2019. The density of the left hip has decreased 10.2% since initial exam on 03/03/2017. The density of the left hip has increased 2.8% since most recent exam on 03/14/2019. The density of the right hip has decreased 7.7% since the initial exam on 03/03/2017. The density of the right hip has increased 4.4% since the most recent exam on 03/14/2019. FOLLOW-UP: Recommendation for the next bone density exam: 2 years. <Electronically signed by Anuj Humphreys > 02/27/21 [id number]
== END ==
LOC: M WHC 10:40
PROVIDERS: ATTEND Physician Assistant Medical
DX: M85.851 Other specified disorders of bone density and structure, right thigh (principal); M85.852 Other specified disorders of bone density and structure, left thigh

== ENCOUNTER → 2021-07-08 | Outpatient (REF) | payer MEDICARE, MEDICAID ==
[~2021-07-08] MED LIST changes: -FENO48TA7 PO; +FENO48TA8 PO; -LISI-898; -LISI-898 PO; +LISI5TAB11; +LISI5TAB11 PO
[2021-07-08 11:29] LABS: BASO % 0.5 % (0.0-1.0); EOS # 0.2 10^3/uL (0.0-0.5); EOS % 2.7 % (0.0-3.0); HEMOGLOBIN 11.4 g/dl (12.0-15.5); LYMPH # 1.9 10^3/uL (1.5-5.0); LYMPH % 32.6 % (24.0-44.0); MEAN CORPUSCULAR HEMOGLOBIN 29.5 pg (27.0-33.0); MEAN CORPUSCULAR HGB CONC 31.7 g/dl (32.0-36.5); MEAN CORPUSCULAR VOLUME 93.3 fl (80.0-96.0); MONO # 0.5 10^3/uL (0.0-0.8); MONO % 8.3 % (2.0-8.0); NEUTROPHILS # 3.3 10^3/uL (1.5-8.5); NEUTROPHILS % 55.7 % (36.0-66.0); PLATELET COUNT, AUTOMATED 243 10^3/uL (150-450); RED BLOOD COUNT 3.86 10^6/uL (4.00-5.40); WHITE BLOOD COUNT 5.9 10^3/uL (4.0-10.0)
[2021-07-08 12:07] LABS: ALBUMIN 3.1 GM/DL (3.2-5.2); BILIRUBIN,TOTAL 0.2 MG/DL (0.2-1.0); CALCIUM LEVEL 9.5 MG/DL (8.8-10.2); CHOLESTEROL RISK RATIO 3.578 (<5); CREATININE FOR GFR 1.33 MG/DL (0.55-1.30); FREE T4 0.99 NG/DL (0.76-1.46); POTASSIUM SERUM 4.9 MEQ/L (3.5-5.1); THYROID STIMULATING HORMONE 1.82 uIU/ML (0.358-3.740); TOTAL PROTEIN 6.8 GM/DL (6.4-8.2)
[2021-07-08 12:46] LABS: PTH INTACT 117.7 PG/ML (18.5-88.0); TOTAL 25(OH) VITAMIN D 72.9 NG/ML (30.0-100.0)
== END ==
PROVIDERS: ATTEND Physician Assistant Medical
DX: I12.9 Hypertensive chronic kidney disease with stage 1 through stage 4 chronic kidney disease, or unspecified chronic kidney disease (principal); N18.30 Chronic kidney disease, stage 3 unspecified; E03.9 Hypothyroidism, unspecified; E55.9 Vitamin D deficiency, unspecified; E78.5 Hyperlipidemia, unspecified

== ENCOUNTER 2021-07-30 19:54 | Emergency (ER) | payer MEDICARE, MEDICAID ==
[~2021-07-30] VITALS: Ht 167.6 cm; Wt 89.5 kg
[2021-07-30 20:26] VITALS: BP 115/67
[2021-07-30 20:39] LABS: BASO % 0.5 % (0.0-1.0); EOS # 0.2 10^3/uL (0.0-0.5); HEMATOCRIT 37.3 % (36.0-47.0); HEMOGLOBIN 11.7 g/dl (12.0-15.5); LYMPH # 1.9 10^3/uL (1.5-5.0); LYMPH % 25.2 % (24.0-44.0); MEAN CORPUSCULAR HEMOGLOBIN 29.5 pg (27.0-33.0); MEAN CORPUSCULAR HGB CONC 31.4 g/dl (32.0-36.5); MEAN CORPUSCULAR VOLUME 94.2 fl (80.0-96.0); MONO # 0.6 10^3/uL (0.0-0.8); MONO % 8.3 % (2.0-8.0); NEUTROPHILS # 4.8 10^3/uL (1.5-8.5); NEUTROPHILS % 63.7 % (36.0-66.0); PLATELET COUNT, AUTOMATED 267 10^3/uL (150-450); RED BLOOD COUNT 3.96 10^6/uL (4.00-5.40); WHITE BLOOD COUNT 7.6 10^3/uL (4.0-10.0)
[2021-07-30 21:09] LABS: CALCIUM LEVEL 8.9 MG/DL (8.8-10.2); CREATININE FOR GFR 1.42 MG/DL (0.55-1.30); GLOMERULAR FILTRATION RATE 38.9 (>39); POTASSIUM SERUM 5.7 MEQ/L (3.5-5.1)
[2021-07-30 21:13] LABS: CK-MB VALUE MASS < 1.0 NG/ML (<3.6); CPK CREATINE PHOSPHOKINASE 67 U/L (26-192); MB/CK RELATIVE INDEX 1.49 (< OR =4)
[2021-07-30 21:53] LABS: CALCIUM LEVEL 9.3 MG/DL (8.8-10.2); CK-MB VALUE MASS < 1.0 NG/ML (<3.6); CPK CREATINE PHOSPHOKINASE 59 U/L (26-192); CREATININE FOR GFR 1.41 MG/DL (0.55-1.30); GLOMERULAR FILTRATION RATE 39.3 (>39); MB/CK RELATIVE INDEX 1.69 (< OR =4); POTASSIUM SERUM 5.3 MEQ/L (3.5-5.1)
[2021-07-30] MEDS ORDERED: NAPR-837 PO (23:56)
== END 2021-07-31 01:07 | disposition home or self-care (01) ==
LOC: M ED 19:54 → EDBD 19:54 → M ED 07-31 01:07
DX: R07.89 Other chest pain (principal); R00.1 Bradycardia, unspecified; I12.9 Hypertensive chronic kidney disease with stage 1 through stage 4 chronic kidney disease, or unspecified chronic kidney disease; N18.9 Chronic kidney disease, unspecified; E78.5 Hyperlipidemia, unspecified; Z88.0 Allergy status to penicillin; Z88.8 Allergy status to other drugs, medicaments and biological substances; Z91.040 Latex allergy status; Z79.899 Other long term (current) drug therapy

== ENCOUNTER → 2021-08-13 | Outpatient (REF) | payer MEDICARE, MEDICAID ==
[~2021-08-13] MED LIST changes: -D31000TA2 PO; +NAPR-837 PO; +VITA100093 PO
== END ==
PROVIDERS: ATTEND Physician Assistant Medical
DX: R07.89 Other chest pain (principal); D63.8 Anemia in other chronic diseases classified elsewhere

== ENCOUNTER → 2021-08-20 | Outpatient (CLI) | payer MEDICARE, MEDICAID | LOC: M WHC 09:12 | PROVIDERS: ATTEND Family Medicine | DX: Z12.39 Encounter for other screening for malignant neoplasm of breast (principal) ==

== ENCOUNTER → 2021-09-04 | Outpatient (REF) | payer MEDICARE, MEDICAID ==
[2021-09-04 11:28] LABS: CALCIUM LEVEL 9.8 MG/DL (8.8-10.2); CREATININE FOR GFR 1.1 MG/DL (0.55-1.30); GLOMERULAR FILTRATION RATE 52.3 (>39)
== END ==
PROVIDERS: ATTEND Physician Assistant Medical
DX: R07.89 Other chest pain (principal)

== ENCOUNTER → 2021-09-13 | Outpatient (REF) | payer MEDICARE, MEDICAID ==
[2021-09-13 17:42] LABS: APPEARANCE, URINE CLEAR (CLEAR); BACTERIA, URINE AUTO NEGATIVE (NEGATIVE); BILIRUBIN, URINE AUTO NEGATIVE (NEGATIVE); BLOOD, URINE BLOOD NEGATIVE (NEGATIVE); COLOR, URINE YELLOW (YELLOW); GLUCOSE, URINE (UA) AUTO NEGATIVE (NEGATIVE); KETONE, URINE AUTO NEGATIVE (NEGATIVE); LEUKOCYTE ESTERASE, URINE AUTO TRACE (NEGATIVE); NITRITE, URINE AUTO NEGATIVE (NEGATIVE); PROTEIN, URINE AUTO NEGATIVE (NEGATIVE); RBC, URINE AUTO 1 /HPF (0-3); SPECIFIC GRAVITY URINE AUTO 1.014 (1.002-1.035); SQUAMOUS EPITHELIAL CELL UR AU 1 /HPF (0-6); UROBILINOGEN, URINE AUTO 0.2 mg/dL (0.0-2.0); WBC, URINE AUTO 5 /HPF (0-3)
== END ==
LOC: M SFHCPLAZ 17:04
PROVIDERS: ATTEND Nurse Practitioner Family
DX: N39.0 Urinary tract infection, site not specified (principal)

== ENCOUNTER → 2021-10-21 | Outpatient (REF) | payer MEDICARE, MEDICAID ==
[2021-10-21 10:17] LABS: BASO % 0.5 % (0.0-1.0); EOS # 0.2 10^3/uL (0.0-0.5); HEMATOCRIT 36.4 % (36.0-47.0); HEMOGLOBIN 11.5 g/dl (12.0-15.5); LYMPH # 1.7 10^3/uL (1.5-5.0); LYMPH % 29.1 % (24.0-44.0); MEAN CORPUSCULAR HEMOGLOBIN 30.2 pg (27.0-33.0); MEAN CORPUSCULAR HGB CONC 31.6 g/dl (32.0-36.5); MEAN CORPUSCULAR VOLUME 95.5 fl (80.0-96.0); MONO # 0.5 10^3/uL (0.0-0.8); MONO % 8.6 % (2.0-8.0); NEUTROPHILS # 3.3 10^3/uL (1.5-8.5); NEUTROPHILS % 58.8 % (36.0-66.0); PLATELET COUNT, AUTOMATED 230 10^3/uL (150-450); RED BLOOD COUNT 3.81 10^6/uL (4.00-5.40); WHITE BLOOD COUNT 5.7 10^3/uL (4.0-10.0)
[2021-10-21 10:58] LABS: BLOOD UREA NITROGEN 22 MG/DL (7-18); CALCIUM LEVEL 9.5 MG/DL (8.8-10.2); CARBON DIOXIDE LEVEL 34 MEQ/L (21-32); CHLORIDE LEVEL 104 MEQ/L (98-107); CREATININE FOR GFR 1.38 MG/DL (0.55-1.30); FERRITIN 34 NG/ML (8-252); GLOMERULAR FILTRATION RATE 40.2 (>39); GLUCOSE, FASTING 84 MG/DL (70-100); PHOSPHORUS LEVEL 3.6 MG/DL (2.5-4.9); SODIUM LEVEL 140 MEQ/L (136-145)
[2021-10-21 11:02] LABS: PTH INTACT 91.9 PG/ML (18.5-88.0); TOTAL 25(OH) VITAMIN D 47.1 NG/ML (30.0-100.0)
[2021-10-21 11:58] LABS: HEMOGLOBIN A1c 5.3 %
== END ==
PROVIDERS: ATTEND Family Medicine
DX: E21.3 Hyperparathyroidism, unspecified (principal); N18.30 Chronic kidney disease, stage 3 unspecified; D63.8 Anemia in other chronic diseases classified elsewhere; E78.5 Hyperlipidemia, unspecified; Z79.899 Other long term (current) drug therapy

== ENCOUNTER → 2021-12-26 | Outpatient (CLI) | payer MEDICARE, MEDICAID ==
[~2021-12-26] MED LIST changes: +CALC500T61 PO; +DIPH25CA32 PO; +MONT10TA97 PO; +PEPT262T2 PO; +POLYOPD OD; -POLYOPD OU; +ROSU10TA6 PO; +SALI0.6530 NARES
== END ==
LOC: M RAD 13:02
PROVIDERS: ATTEND Surgery
DX: I71.4 Abdominal aortic aneurysm, without rupture (principal)

== ENCOUNTER 2021-12-27 15:59 | Inpatient (IN) | payer MEDICARE, MEDICAID ==
[~2021-12-27] VITALS: Ht 170.2 cm; Wt 91.7 kg
[~2021-12-27 15:59] MED LIST changes: -CALC500T61 PO; -DIPH25CA32 PO; -MONT10TA97 PO; -PEPT262T2 PO; -ROSU10TA6 PO; -SALI0.6530 NARES
[2021-12-27 17:32] LABS: BASO % 0.3 % (0.0-1.0); EOS # 0.1 10^3/uL (0.0-0.5); EOS % 0.7 % (0.0-3.0); HEMATOCRIT 40.7 % (36.0-47.0); HEMOGLOBIN 12.8 g/dl (12.0-15.5); LYMPH # 1.1 10^3/uL (1.5-5.0); LYMPH % 10.6 % (24.0-44.0); MEAN CORPUSCULAR HGB CONC 31.4 g/dl (32.0-36.5); MEAN CORPUSCULAR VOLUME 92.3 fl (80.0-96.0); MONO # 0.6 10^3/uL (0.0-0.8); MONO % 5.7 % (2.0-8.0); NEUTROPHILS # 8.7 10^3/uL (1.5-8.5); NEUTROPHILS % 82.2 % (36.0-66.0); PLATELET COUNT, AUTOMATED 271 10^3/uL (150-450); RED BLOOD COUNT 4.41 10^6/uL (4.00-5.40); WHITE BLOOD COUNT 10.6 10^3/uL (4.0-10.0)
[2021-12-27 18:05] LABS: ALBUMIN 3.5 GM/DL (3.2-5.2); BILIRUBIN,DIRECT 0.1 MG/DL (0.0-0.2); BILIRUBIN,TOTAL 0.3 MG/DL (0.2-1.0); CALCIUM LEVEL 10.1 MG/DL (8.8-10.2); CK-MB VALUE MASS 1.1 NG/ML (<3.6); CREATININE FOR GFR 1.29 MG/DL (0.55-1.30); ETHYL ALCOHOL (ETHANOL) 0.004 % (0.000-0.010); GLOMERULAR FILTRATION RATE 43.5 (>39); MB/CK RELATIVE INDEX 0.7 (< OR =4); POTASSIUM SERUM 4.6 MEQ/L (3.5-5.1); THYROID STIMULATING HORMONE 1.32 uIU/ML (0.358-3.740); TOTAL PROTEIN 7.8 GM/DL (6.4-8.2)
[2021-12-27] MEDS ORDERED: LevoFLOXacin IV 750 MG in IV 1 EA IV ONE (18:30)
[2021-12-27 18:38] LABS: AMPHETAMINES LEVEL URINE NEGATIVE (NEGATIVE); BARBITURATES URINE NEGATIVE (NEGATIVE); BENZODIAZEPINES URINE POSITIVE (NEGATIVE); CANNABINOIDS URINE NEGATIVE (NEGATIVE); COCAINE METABOLITE URINE NEGATIVE (NEGATIVE); METHADONE URINE NEGATIVE (NEGATIVE); OPIATES URINE NEGATIVE (NEGATIVE); PHENCYCLIDINE URINE NEGATIVE (NEGATIVE)
[2021-12-27] MEDS ORDERED: ASPIRIN 81 MG CHEW TABLET PO ONE (19:05)
[2021-12-27 19:10] LABS: RSV AMPLIFICATION NEGATIVE (NEGATIVE)
[2021-12-27 19:30] LABS: CK-MB VALUE MASS 1.7 NG/ML (<3.6); MB/CK RELATIVE INDEX 0.64 (< OR =4)
[2021-12-27] MEDS ORDERED: lisinopriL 5 MG TAB PO SCH (21:00)
[2021-12-27] MEDS ORDERED: **hydrALAZINE** 10 MG TAB PO SCH (21:00)
[2021-12-27] MEDS ORDERED: PEPT262T2 PO (21:04)
[2021-12-27] MEDS ORDERED: ROSU10TA6 PO (21:04)
[2021-12-27] MEDS ORDERED: CALC500T61 PO (21:04)
[2021-12-27] MEDS ORDERED: DIPH25CA32 PO (21:04)
[2021-12-27] MEDS ORDERED: MONT10TA97 PO (21:04)
[2021-12-27] MEDS ORDERED: SALI0.6530 NARES (21:04)
[2021-12-27] MEDS ORDERED: HOME MED LIST COMPLETE! XX SCH (21:10)
[2021-12-27] MEDS ORDERED: MAALOX 30 ML SUSP *UDC PO PRN (22:30)
[2021-12-27] MEDS ORDERED: ALBUTEROL 90 MCG/ACT 8GM HFA INHALER INH PRN (22:30)
[2021-12-27] MEDS ORDERED: MOM 30ML SUSPENSION UDC PO PRN (22:30)
[2021-12-27 23:40] VITALS: BP 130/73
[2021-12-28] VITALS (7 sets, daily range): BP systolic 96–110; BP diastolic 53–58; O2SAT 95–97
[2021-12-28] MEDS: MONTELUKAST 10 MG TAB PO SCH ×2 (00:05→21:23)
[2021-12-28] MEDS: ROSUVASTATIN 10 MG TAB (CRESTOR) PO SCH ×2 (00:05→21:23)
[2021-12-28] MEDS: ALPRAZolam 0.5 MG TAB PO SCH ×4 (00:05→21:22)
[2021-12-28] MEDS: HEPARIN SOD (PORCINE) 5000UNITS/ML 1ML VIAL/SYRINGE SC SCH ×4 (00:06→21:23)
[2021-12-28] MEDS: CETIRIZINE (ZyrTEC) 10 MG TAB PO SCH ×2 (00:06→21:23)
[2021-12-28] MEDS: QUEtiapine FUMARATE 50MG TAB PO SCH ×2 (00:12→21:23)
[2021-12-28 01:06] LABS: CK-MB VALUE MASS 2.7 NG/ML (<3.6); MB/CK RELATIVE INDEX 0.64 (< OR =4)
[2021-12-28 06:38] LABS: BASO % 0.4 % (0.0-1.0); EOS # 0.1 10^3/uL (0.0-0.5); EOS % 1.1 % (0.0-3.0); HEMATOCRIT 36.2 % (36.0-47.0); HEMOGLOBIN 11.2 g/dl (12.0-15.5); LYMPH # 1.7 10^3/uL (1.5-5.0); LYMPH % 18.7 % (24.0-44.0); MEAN CORPUSCULAR HGB CONC 30.9 g/dl (32.0-36.5); MEAN CORPUSCULAR VOLUME 90.5 fl (80.0-96.0); MONO # 0.6 10^3/uL (0.0-0.8); MONO % 6.1 % (2.0-8.0); NEUTROPHILS # 6.6 10^3/uL (1.5-8.5); NEUTROPHILS % 73.4 % (36.0-66.0); PLATELET COUNT, AUTOMATED 223 10^3/uL (150-450)
[2021-12-28] MEDS: LEVOTHYROXINE 25MCG TABLET (0.025MG) PO SCH (06:39)
[2021-12-28 06:59] LABS: HEMOGLOBIN A1c 5.5 %
[2021-12-28 07:12] LABS: ALBUMIN 2.9 GM/DL (3.2-5.2); BILIRUBIN,TOTAL 0.3 MG/DL (0.2-1.0); CALCIUM LEVEL 9.7 MG/DL (8.8-10.2); CREATININE FOR GFR 1.05 MG/DL (0.55-1.30); GLOMERULAR FILTRATION RATE 55.2 (>39); MAGNESIUM LEVEL 2.5 MG/DL (1.8-2.4); POTASSIUM SERUM 3.9 MEQ/L (3.5-5.1); TOTAL PROTEIN 7.1 GM/DL (6.4-8.2)
[2021-12-28 07:43] LABS: CHOLESTEROL RISK RATIO 2.901 (<5)
[2021-12-28] MEDS ORDERED: amLODIPine 5 MG TAB PO SCH (09:00)
[2021-12-28] MEDS ORDERED: TRINTELLIX 20 MG PO SCH (09:00)
[2021-12-28] MEDS ORDERED: TRINTELLIX 10 MG PO SCH (09:00)
[2021-12-28] MEDS: ACETAMINOPHEN TAB 650MG DOSE (2X325MG) PO PRN (09:09)
[2021-12-28] MEDS: KCL 20MEQ IN 0.45NS 1000ML 1,000 ML IV SCH ×2 (10:42→18:55)
[2021-12-28] MEDS: FLUTICASONE PROP 0.05% NASAL SPRAY 16 GM (FLONASE) SCH (10:46)
[2021-12-28] MEDS: ASPIRIN 81MG ENTERIC TABLET PO SCH (10:47)
[2021-12-28] MEDS: PANTOPRAZOLE 40MG TAB (PROTONIX) PO SCH (10:47)
[2021-12-28] MEDS: OYSTER SHELL CALCIUM 500 MG TAB PO SCH (10:47)
[2021-12-28] MEDS: METOPROLOL SUCC *XL* 25MG TAB (TopROL *XL*) PO SCH (11:21)
[2021-12-28 13:03] LABS: MB/CK RELATIVE INDEX 0.6 (< OR =4)
[2021-12-28] MEDS ORDERED: MIRALAX *UNIT DOSE* 17GM PACKET PO SCH (21:00)
[2021-12-28] MEDS: LevoFLOXacin 750 MG TABLET PO SCH (21:23)
[2021-12-29] VITALS: BP 88/56; O2SAT 95
[2021-12-29] MEDS: KCL 20MEQ IN 0.45NS 1000ML 1,000 ML IV SCH ×2 (02:34→10:30)
[2021-12-29] MEDS: ACETAMINOPHEN TAB 650MG DOSE (2X325MG) PO PRN ×2 (02:35→16:19)
[2021-12-29 04:00] VITALS: BP 101/54; O2SAT 97
[2021-12-29] MEDS: LEVOTHYROXINE 25MCG TABLET (0.025MG) PO SCH (06:00)
[2021-12-29] MEDS: HEPARIN SOD (PORCINE) 5000UNITS/ML 1ML VIAL/SYRINGE SC SCH ×3 (06:01→21:31)
[2021-12-29 06:45] LABS: CALCIUM LEVEL 8.9 MG/DL (8.8-10.2); CREATININE FOR GFR 1.12 MG/DL (0.55-1.30); GLOMERULAR FILTRATION RATE 51.2 (>39); MAGNESIUM LEVEL 2.4 MG/DL (1.8-2.4); POTASSIUM SERUM 4.6 MEQ/L (3.5-5.1)
[2021-12-29 07:08] VITALS: BP 113/55
[2021-12-29 07:17] LABS: HEMATOCRIT 34.3 % (36.0-47.0); HEMOGLOBIN 10.5 g/dl (12.0-15.5); MEAN CORPUSCULAR HEMOGLOBIN 28.5 pg (27.0-33.0); MEAN CORPUSCULAR HGB CONC 30.6 g/dl (32.0-36.5); PLATELET COUNT, AUTOMATED 210 10^3/uL (150-450); RED BLOOD COUNT 3.69 10^6/uL (4.00-5.40); WHITE BLOOD COUNT 5.8 10^3/uL (4.0-10.0)
[2021-12-29] MEDS: ALPRAZolam 0.5 MG TAB PO SCH ×3 (08:43→21:30)
[2021-12-29 08:44] VITALS: BP 113/55
[2021-12-29] MEDS: ASPIRIN 81MG ENTERIC TABLET PO SCH (08:44)
[2021-12-29] MEDS: FLUTICASONE PROP 0.05% NASAL SPRAY 16 GM (FLONASE) SCH (08:44)
[2021-12-29] MEDS: METOPROLOL SUCC *XL* 25MG TAB (TopROL *XL*) PO SCH (08:44)
[2021-12-29] MEDS: OYSTER SHELL CALCIUM 500 MG TAB PO SCH (08:44)
[2021-12-29] MEDS: PANTOPRAZOLE 40MG TAB (PROTONIX) PO SCH (08:44)
[2021-12-29 20:13] VITALS: BP 120/57
[2021-12-29] MEDS: CETIRIZINE (ZyrTEC) 10 MG TAB PO SCH (21:31)
[2021-12-29] MEDS: LevoFLOXacin 750 MG TABLET PO SCH (21:31)
[2021-12-29] MEDS: ROSUVASTATIN 10 MG TAB (CRESTOR) PO SCH (21:31)
[2021-12-29] MEDS: MONTELUKAST 10 MG TAB PO SCH (21:31)
[2021-12-29] MEDS: QUEtiapine FUMARATE 50MG TAB PO SCH (21:31)
[2021-12-30] MEDS: ACETAMINOPHEN TAB 650MG DOSE (2X325MG) PO PRN (01:05)
[2021-12-30] MEDS: LEVOTHYROXINE 25MCG TABLET (0.025MG) PO SCH (05:57)
[2021-12-30] MEDS: HEPARIN SOD (PORCINE) 5000UNITS/ML 1ML VIAL/SYRINGE SC SCH (05:58)
[2021-12-30 06:47] LABS: HEMATOCRIT 34.5 % (36.0-47.0); HEMOGLOBIN 10.6 g/dl (12.0-15.5); MEAN CORPUSCULAR HEMOGLOBIN 28.1 pg (27.0-33.0); MEAN CORPUSCULAR HGB CONC 30.7 g/dl (32.0-36.5); MEAN CORPUSCULAR VOLUME 91.5 fl (80.0-96.0); PLATELET COUNT, AUTOMATED 236 10^3/uL (150-450); RED BLOOD COUNT 3.77 10^6/uL (4.00-5.40); WHITE BLOOD COUNT 5.9 10^3/uL (4.0-10.0)
[2021-12-30 07:07] LABS: CALCIUM LEVEL 9.4 MG/DL (8.8-10.2); CREATININE FOR GFR 1.25 MG/DL (0.55-1.30); GLOMERULAR FILTRATION RATE 45.1 (>39); MAGNESIUM LEVEL 2.4 MG/DL (1.8-2.4); POTASSIUM SERUM 4.2 MEQ/L (3.5-5.1)
[2021-12-30 07:50] VITALS: BP 126/60
[2021-12-30] MEDS: PANTOPRAZOLE 40MG TAB (PROTONIX) PO SCH (08:38)
[2021-12-30] MEDS: ASPIRIN 81MG ENTERIC TABLET PO SCH (08:38)
[2021-12-30] MEDS: METOPROLOL SUCC *XL* 25MG TAB (TopROL *XL*) PO SCH (08:38)
[2021-12-30] MEDS: OYSTER SHELL CALCIUM 500 MG TAB PO SCH (08:38)
[2021-12-30] MEDS: ALPRAZolam 0.5 MG TAB PO SCH (08:39)
[2021-12-30] MEDS: FLUTICASONE PROP 0.05% NASAL SPRAY 16 GM (FLONASE) SCH (08:39)
[2021-12-30] MEDS ORDERED: LEVO750T13 PO (11:44)
[2021-12-30] MEDS ORDERED: LEVO500T4 PO (11:48)
== END 2021-12-30 14:04 | DRG 177 ==
LOC: M ED 15:59 → M ED INP 22:29 → M PCU 23:40
PROVIDERS: ADMIT Family Medicine; ATTEND Internal Medicine
DX: J69.0 Pneumonitis due to inhalation of food and vomit (principal); I21.A1 Myocardial infarction type 2; T75.1XXA Unspecified effects of drowning and nonfatal submersion, initial encounter; N18.30 Chronic kidney disease, stage 3 unspecified; I12.9 Hypertensive chronic kidney disease with stage 1 through stage 4 chronic kidney disease, or unspecified chronic kidney disease; F41.9 Anxiety disorder, unspecified; F32.A Depression, unspecified; E03.9 Hypothyroidism, unspecified; D64.9 Anemia, unspecified; R09.02 Hypoxemia; I95.9 Hypotension, unspecified; Z90.49 Acquired absence of other specified parts of digestive tract; Z79.890 Hormone replacement therapy; Z88.8 Allergy status to other drugs, medicaments and biological substances; Z91.040 Latex allergy status; Z87.891 Personal history of nicotine dependence; Z98.890 Other specified postprocedural states; Z88.0 Allergy status to penicillin; Y93.11 Activity, swimming; Y92.832 Beach as the place of occurrence of the external cause; Y99.8 Other external cause status

== ENCOUNTER → 2022-02-14 | Outpatient (CLI) | payer MEDICARE, MEDICAID ==
[~2022-02-14] MED LIST changes: +CALC500T61 PO; +DIPH25CA32 PO; +LEVO1TAB39 PO; +LEVO1TAB40 PO; +MONT10TA97 PO; +PEPT262T2 PO; +ROSU10TA6 PO; +SALI0.6530 NARES
== END ==
LOC: M PLALAB 13:43
PROVIDERS: ATTEND Physician Assistant Medical
DX: M79.605 Pain in left leg (principal)

== ENCOUNTER → 2022-03-10 | Outpatient (REF) | payer MEDICARE, MEDICAID ==
[2022-03-10 11:18] LABS: BASO % 0.6 % (0.0-1.0); EOS # 0.1 10^3/uL (0.0-0.5); EOS % 2.2 % (0.0-3.0); HEMATOCRIT 37.9 % (36.0-47.0); HEMOGLOBIN 11.7 g/dl (12.0-15.5); LYMPH # 1.7 10^3/uL (1.5-5.0); LYMPH % 26.5 % (24.0-44.0); MEAN CORPUSCULAR HEMOGLOBIN 29.1 pg (27.0-33.0); MEAN CORPUSCULAR HGB CONC 30.9 g/dl (32.0-36.5); MEAN CORPUSCULAR VOLUME 94.3 fl (80.0-96.0); MONO # 0.4 10^3/uL (0.0-0.8); MONO % 5.7 % (2.0-8.0); NEUTROPHILS # 4.2 10^3/uL (1.5-8.5); NEUTROPHILS % 64.7 % (36.0-66.0); PLATELET COUNT, AUTOMATED 252 10^3/uL (150-450); RED BLOOD COUNT 4.02 10^6/uL (4.00-5.40); WHITE BLOOD COUNT 6.5 10^3/uL (4.0-10.0)
[2022-03-10 11:46] LABS: HEMOGLOBIN A1c 5.6 %
[2022-03-10 11:54] LABS: ALBUMIN 3.1 GM/DL (3.2-5.2); ALT/SGPT 15 U/L (12-78); BILIRUBIN,TOTAL 0.2 MG/DL (0.2-1.0); BLOOD UREA NITROGEN 29 MG/DL (7-18); CALCIUM LEVEL 9.3 MG/DL (8.8-10.2); CARBON DIOXIDE LEVEL 32 MEQ/L (21-32); CHLORIDE LEVEL 104 MEQ/L (98-107); CHOLESTEROL LEVEL 148 MG/DL (<200); CHOLESTEROL RISK RATIO 3.441 (<5); CREATININE FOR GFR 1.41 MG/DL (0.55-1.30); FERRITIN 65 NG/ML (8-252); GLOMERULAR FILTRATION RATE 39.3 (>39); GLUCOSE, FASTING 111 MG/DL (70-100); HDL CHOLESTEROL 43 MG/DL (>40); IRON (FE) 59 UG/DL (50-170); LDL CHOLESTEROL 70 MG/DL (<100); NON-HDL-C 105 MG/DL; POTASSIUM SERUM 4.8 MEQ/L (3.5-5.1); SODIUM LEVEL 138 MEQ/L (136-145); TOTAL PROTEIN 7.1 GM/DL (6.4-8.2); TRIGLYCERIDES LEVEL 173 MG/DL (<150)
[2022-03-10 12:50] LABS: TOTAL 25(OH) VITAMIN D 46.8 NG/ML (30.0-100.0)
== END ==
PROVIDERS: ATTEND Physician Assistant Medical
DX: I12.9 Hypertensive chronic kidney disease with stage 1 through stage 4 chronic kidney disease, or unspecified chronic kidney disease (principal); E78.5 Hyperlipidemia, unspecified; D63.8 Anemia in other chronic diseases classified elsewhere; N18.30 Chronic kidney disease, stage 3 unspecified; Z79.899 Other long term (current) drug therapy

== ENCOUNTER → 2022-04-07 | Outpatient (REF) | payer MEDICARE, MEDICAID ==
[~2022-04-07] MED LIST changes: +DICL1GEL3 TOP
[2022-04-07 10:11] LABS: BASO % 0.5 % (0.0-1.0); EOS # 0.2 10^3/uL (0.0-0.5); EOS % 2.8 % (0.0-3.0); HEMOGLOBIN 11.3 g/dl (12.0-15.5); LYMPH # 1.5 10^3/uL (1.5-5.0); LYMPH % 24.2 % (24.0-44.0); MEAN CORPUSCULAR HEMOGLOBIN 29.5 pg (27.0-33.0); MEAN CORPUSCULAR HGB CONC 31.4 g/dl (32.0-36.5); MONO # 0.4 10^3/uL (0.0-0.8); MONO % 6.8 % (2.0-8.0); NEUTROPHILS % 65.4 % (36.0-66.0); PLATELET COUNT, AUTOMATED 259 10^3/uL (150-450); RED BLOOD COUNT 3.83 10^6/uL (4.00-5.40)
[2022-04-07 10:30] LABS: INR 0.96
[2022-04-07 10:31] LABS: PARTIAL THROMBOPLASTIN TIME 28.7 SECONDS (24.8-34.2)
[2022-04-07 11:11] LABS: BILIRUBIN,TOTAL 0.4 MG/DL (0.2-1.0); CALCIUM LEVEL 9.1 MG/DL (8.8-10.2); CREATININE FOR GFR 1.53 MG/DL (0.55-1.30); GLOMERULAR FILTRATION RATE 35.6 (>39); POTASSIUM SERUM 4.4 MEQ/L (3.5-5.1)
[2022-04-07 11:47] LABS: HEMOGLOBIN A1c 5.7 %
[2022-04-07 12:42] LABS: TOTAL 25(OH) VITAMIN D 49.2 NG/ML (30.0-100.0)
== END ==
PROVIDERS: ATTEND Family Medicine
DX: I10 Essential (primary) hypertension (principal); Z79.899 Other long term (current) drug therapy

== ENCOUNTER → 2022-04-09 | Outpatient (REF) | payer MEDICARE, MEDICAID | PROVIDERS: ATTEND Ophthalmology | DX: Z01.818 Encounter for other preprocedural examination (principal); Z20.822 Contact with and (suspected) exposure to COVID-19 ==

== ENCOUNTER 2022-04-14 09:11 | Day surgery (SDC) | payer MEDICARE, MEDICAID ==
[~2022-04-14] VITALS: Ht 167.6 cm; Wt 95.3 kg
[~2022-04-14 09:11] MED LIST changes: +BSS IRRIG/VANCO(10MG)/TOBRA(5MG)/EPINEPH(1:1000-0.5CC)500ML BAG-ORONLY IR ONE; +CYCLOPENTOLATE 1% OPHTH SOLN 2 ML BTL OD SCH; +LIDOCAINE 1% SDV 5ML VIAL As Ordered ONE; +LIDOCAINE 3.5 % 1ML OPHTH TOPICAL GEL OU ONE; +MIDAZOLAM INJ 2MG/2ML VIAL (J2250 PER 1MG) As Ordered ONE; +OFLOXACIN 0.3 % (OCUFLOX) OPTH SOL 5ML OD ONE; +PHENYLEPHRINE 2.5% OPHTH SOL 2ML OD SCH; +PHENYLEPHRINE HCL 10 % OPHTH. SOL 5ML OD PRN; +TROPICAMIDE 1% OPHTH SOLN 2ML OD SCH
[2022-04-14 11:50] VITALS: BP 138/72
== END 2022-04-14 12:27 | disposition home or self-care (01) ==
LOC: M SDC 09:11
PROVIDERS: ATTEND Ophthalmology
DX: H25.11 Age-related nuclear cataract, right eye (principal); Z88.0 Allergy status to penicillin; Z88.8 Allergy status to other drugs, medicaments and biological substances; Z91.040 Latex allergy status
CPT/HCPCS: 66984; J2250; V2632

== ENCOUNTER → 2022-06-12 | Outpatient (CLI) | payer MEDICARE, MEDICAID ==
[~2022-06-12] MED LIST changes: -BSS IRRIG/VANCO(10MG)/TOBRA(5MG)/EPINEPH(1:1000-0.5CC)500ML BAG-ORONLY IR ONE; -CYCLOPENTOLATE 1% OPHTH SOLN 2 ML BTL OD SCH; +DIPH-435 PO; -DIPH25CA32 PO; -LIDOCAINE 1% SDV 5ML VIAL As Ordered ONE; -LIDOCAINE 3.5 % 1ML OPHTH TOPICAL GEL OU ONE; -MIDAZOLAM INJ 2MG/2ML VIAL (J2250 PER 1MG) As Ordered ONE; -OFLOXACIN 0.3 % (OCUFLOX) OPTH SOL 5ML OD ONE; -PHENYLEPHRINE 2.5% OPHTH SOL 2ML OD SCH; -PHENYLEPHRINE HCL 10 % OPHTH. SOL 5ML OD PRN; -TROPICAMIDE 1% OPHTH SOLN 2ML OD SCH
[2022-06-12 15:30] LABS: BASO % 0.5 % (0.0-1.0); EOS # 0.1 10^3/uL (0.0-0.5); HEMATOCRIT 39.8 % (36.0-47.0); LYMPH # 1.6 10^3/uL (1.5-5.0); LYMPH % 23.7 % (24.0-44.0); MEAN CORPUSCULAR HEMOGLOBIN 29.1 pg (27.0-33.0); MEAN CORPUSCULAR HGB CONC 30.2 g/dl (32.0-36.5); MEAN CORPUSCULAR VOLUME 96.4 fl (80.0-96.0); MONO # 0.6 10^3/uL (0.0-0.8); MONO % 8.9 % (2.0-8.0); NEUTROPHILS # 4.2 10^3/uL (1.5-8.5); NEUTROPHILS % 64.4 % (36.0-66.0); PLATELET COUNT, AUTOMATED 266 10^3/uL (150-450); RED BLOOD COUNT 4.13 10^6/uL (4.00-5.40); WHITE BLOOD COUNT 6.6 10^3/uL (4.0-10.0)
[2022-06-12 15:41] LABS: INR 0.93; PROTHROMBIN TIME 12.7 SECONDS (12.5-14.5)
[2022-06-12 15:42] LABS: PARTIAL THROMBOPLASTIN TIME 29.3 SECONDS (24.8-34.2)
[2022-06-12 16:01] LABS: ALBUMIN 3.4 G/DL (3.2-5.2); BILIRUBIN,TOTAL 0.2 MG/DL (0.3-1.2); CALCIUM LEVEL 10.1 MG/DL (8.3-10.6); CREATININE FOR GFR 1.29 MG/DL (0.55-1.30); GLOMERULAR FILTRATION RATE 43.4 (>39); POTASSIUM SERUM 5.5 MMOL/L (3.5-5.1); TOTAL PROTEIN 7.6 G/DL (5.7-8.2)
== END ==
LOC: M PLALAB 11:40
PROVIDERS: ATTEND Physician Assistant Medical
DX: I10 Essential (primary) hypertension (principal); Z79.01 Long term (current) use of anticoagulants

== ENCOUNTER → 2022-06-21 | Outpatient (REF) | payer MEDICARE, MEDICAID | PROVIDERS: ATTEND Physician Assistant Medical | DX: Z01.818 Encounter for other preprocedural examination (principal); Z20.822 Contact with and (suspected) exposure to COVID-19 ==

== ENCOUNTER → 2022-07-05 | Outpatient (REF) | payer MEDICARE, MEDICAID | PROVIDERS: ATTEND Physician Assistant Medical | DX: Z01.818 Encounter for other preprocedural examination (principal); Z20.822 Contact with and (suspected) exposure to COVID-19 ==

== ENCOUNTER 2022-07-10 07:40 | Day surgery (SDC) | payer MEDICARE, MEDICAID ==
[~2022-07-10] VITALS: Ht 167.6 cm; Wt 99.8 kg
[~2022-07-10 07:40] MED LIST changes: +BSS IRRIG/VANCO(10MG)/TOBRA(5MG)/EPINEPH(1:1000-0.5CC)500ML BAG-ORONLY IR ONE; +CYCLOPENTOLATE 1% OPHTH SOLN 2ML BTL OS SCH; +LIDOCAINE 1% SDV 5ML VIAL As Ordered ONE; +LIDOCAINE 3.5 % 1ML OPHTH TOPICAL GEL OU ONE; +MIDAZOLAM INJ 2MG/2ML VIAL As Ordered ONE; +OFLOXACIN 0.3 % (OCUFLOX) OPTH SOL 5ML OS ONE; +PHENYLEPHRINE 10% OPHTH SOL 5ML OS PRN; +PHENYLEPHRINE 2.5% OPHTH SOL 2ML OS SCH; +TROPICAMIDE 1% OPHTH SOLN 15ML OS SCH; +fentaNYL 100 MCG/2 ML INJECTION As Ordered ONE
[2022-07-10 09:31] VITALS: BP 105/56
== END 2022-07-10 10:28 | disposition home or self-care (01) ==
LOC: M SDC 07:40
PROVIDERS: ATTEND Ophthalmology
DX: H25.12 Age-related nuclear cataract, left eye (principal); I12.9 Hypertensive chronic kidney disease with stage 1 through stage 4 chronic kidney disease, or unspecified chronic kidney disease; N18.30 Chronic kidney disease, stage 3 unspecified; E78.5 Hyperlipidemia, unspecified; E03.9 Hypothyroidism, unspecified; D64.9 Anemia, unspecified; F32.A Depression, unspecified; F41.9 Anxiety disorder, unspecified; Z88.0 Allergy status to penicillin; Z88.8 Allergy status to other drugs, medicaments and biological substances; Z91.040 Latex allergy status; Z79.899 Other long term (current) drug therapy; Z90.49 Acquired absence of other specified parts of digestive tract
CPT/HCPCS: 66984; J2250; J3010; V2632

== ENCOUNTER → 2022-07-23 | Outpatient (REF) | payer MEDICARE, MEDICAID ==
[~2022-07-23] MED LIST changes: -BSS IRRIG/VANCO(10MG)/TOBRA(5MG)/EPINEPH(1:1000-0.5CC)500ML BAG-ORONLY IR ONE; -CYCLOPENTOLATE 1% OPHTH SOLN 2ML BTL OS SCH; -LIDOCAINE 1% SDV 5ML VIAL As Ordered ONE; -LIDOCAINE 3.5 % 1ML OPHTH TOPICAL GEL OU ONE; -MIDAZOLAM INJ 2MG/2ML VIAL As Ordered ONE; -OFLOXACIN 0.3 % (OCUFLOX) OPTH SOL 5ML OS ONE; -PHENYLEPHRINE 10% OPHTH SOL 5ML OS PRN; -PHENYLEPHRINE 2.5% OPHTH SOL 2ML OS SCH; -TROPICAMIDE 1% OPHTH SOLN 15ML OS SCH; -fentaNYL 100 MCG/2 ML INJECTION As Ordered ONE
== END ==
PROVIDERS: ATTEND Physician Assistant Medical
DX: Z20.822 Contact with and (suspected) exposure to COVID-19 (principal)

== ENCOUNTER → 2022-09-23 | Outpatient (CLI) | payer MEDICARE, MEDICAID ==
[~2022-09-23] MED LIST changes: +ARTIDRO4 OD; -POLYOPD OD
== END ==
LOC: M WHC 09:23
PROVIDERS: ATTEND Physician Assistant Medical
DX: Z12.31 Encounter for screening mammogram for malignant neoplasm of breast (principal)

== ENCOUNTER → 2022-10-16 | Outpatient (REF) | payer MEDICARE, MEDICAID | LOC: M SFHCPLAZ 13:24 | PROVIDERS: ATTEND Physician Assistant Medical | DX: E87.5 Hyperkalemia (principal); I10 Essential (primary) hypertension; F33.1 Major depressive disorder, recurrent, moderate; E03.9 Hypothyroidism, unspecified; E78.5 Hyperlipidemia, unspecified ==

== ENCOUNTER → 2022-10-16 | Outpatient (CLI) | payer MEDICARE, MEDICAID ==
[2022-10-16 17:33] LABS: BASO % 0.4 % (0.0-1.0); EOS # 0.2 10^3/uL (0.0-0.5); HEMATOCRIT 41.6 % (36.0-47.0); HEMOGLOBIN 12.7 g/dl (12.0-15.5); LYMPH # 2.1 10^3/uL (1.5-5.0); LYMPH % 27.8 % (24.0-44.0); MEAN CORPUSCULAR HEMOGLOBIN 28.7 pg (27.0-33.0); MEAN CORPUSCULAR HGB CONC 30.5 g/dl (32.0-36.5); MEAN CORPUSCULAR VOLUME 94.1 fl (80.0-96.0); MONO # 0.6 10^3/uL (0.0-0.8); MONO % 8.2 % (2.0-8.0); NEUTROPHILS # 4.6 10^3/uL (1.5-8.5); NEUTROPHILS % 61.3 % (36.0-66.0); PLATELET COUNT, AUTOMATED 273 10^3/uL (150-450); RED BLOOD COUNT 4.42 10^6/uL (4.00-5.40); TOTAL 25(OH) VITAMIN D 38.6 NG/ML (20.0-100.0); WHITE BLOOD COUNT 7.6 10^3/uL (4.0-10.0)
[2022-10-16 17:34] LABS: ALBUMIN 3.4 G/DL (3.2-5.2); BILIRUBIN,TOTAL 0.3 MG/DL (0.3-1.2); CALCIUM LEVEL 10.2 MG/DL (8.3-10.6); CHOLESTEROL RISK RATIO 3.33 (<5); CREATININE FOR GFR 1.15 MG/DL (0.55-1.30); GLOMERULAR FILTRATION RATE 49.5 (>39); HDL CHOLESTEROL 47.4 MG/DL (>40); NON-HDL-C 110.6 MG/DL; POTASSIUM SERUM 4.8 MMOL/L (3.5-5.1); TOTAL PROTEIN 7.4 G/DL (5.7-8.2)
[2022-10-16 17:35] LABS: PTH INTACT 131.8 PG/ML (18.5-88.0)
[2022-10-16 17:36] LABS: FREE T4 1.1 NG/DL (0.89-1.76)
[2022-10-16 18:07] LABS: THYROID STIMULATING HORMONE 0.995 uIU/ML (0.55-4.78)
== END ==
LOC: M PLALAB 14:11
PROVIDERS: ATTEND Physician Assistant Medical
DX: E21.3 Hyperparathyroidism, unspecified (principal); E55.9 Vitamin D deficiency, unspecified; E87.5 Hyperkalemia; I10 Essential (primary) hypertension; F33.1 Major depressive disorder, recurrent, moderate; E03.9 Hypothyroidism, unspecified; E78.5 Hyperlipidemia, unspecified

== ENCOUNTER → 2022-12-16 | Outpatient (CLI) | payer MEDICARE, MEDICAID | LOC: M PLAIMG 08:59 | PROVIDERS: ATTEND Surgery | DX: I71.40 Abdominal aortic aneurysm, without rupture, unspecified (principal) ==

== ENCOUNTER → 2023-03-16 | Outpatient (CLI) | payer MEDICARE, MEDICAID ==
[~2023-03-16] MED LIST changes: +DICL100G10 TOP; -DICL1GEL3 TOP; -MIRT-62 PO; +MIRT-88 PO
[2023-03-16 16:06] LABS: BASO % 0.5 % (0.0-1.0); EOS # 0.1 10^3/uL (0.0-0.5); EOS % 1.5 % (0.0-3.0); HEMATOCRIT 40.1 % (36.0-47.0); HEMOGLOBIN 12.6 g/dl (12.0-15.5); LYMPH # 1.8 10^3/uL (1.5-5.0); LYMPH % 24.5 % (24.0-44.0); MEAN CORPUSCULAR HGB CONC 31.4 g/dl (32.0-36.5); MEAN CORPUSCULAR VOLUME 92.4 fl (80.0-96.0); MONO # 0.5 10^3/uL (0.0-0.8); MONO % 6.7 % (2.0-8.0); NEUTROPHILS % 66.4 % (36.0-66.0); PLATELET COUNT, AUTOMATED 283 10^3/uL (150-450); RED BLOOD COUNT 4.34 10^6/uL (4.00-5.40); WHITE BLOOD COUNT 7.5 10^3/uL (4.0-10.0)
[2023-03-16 16:42] LABS: FERRITIN 38.8 NG/ML (7.3-270.7)
[2023-03-16 18:02] LABS: APPEARANCE, URINE CLEAR (CLEAR); BACTERIA, URINE AUTO NEGATIVE (NEGATIVE); BILIRUBIN, URINE AUTO NEGATIVE (NEGATIVE); BLOOD, URINE BLOOD NEGATIVE (NEGATIVE); COLOR, URINE YELLOW (YELLOW); GLUCOSE, URINE (UA) AUTO NEGATIVE (NEGATIVE); KETONE, URINE AUTO NEGATIVE (NEGATIVE); LEUKOCYTE ESTERASE, URINE AUTO NEGATIVE (NEGATIVE); NITRITE, URINE AUTO NEGATIVE (NEGATIVE); PROTEIN, URINE AUTO NEGATIVE (NEGATIVE); RBC, URINE AUTO 0 /HPF (0-3); SPECIFIC GRAVITY URINE AUTO 1.012 (1.002-1.035); SQUAMOUS EPITHELIAL CELL UR AU 0 /HPF (0-6); UROBILINOGEN, URINE AUTO 0.2 mg/dL (0.0-2.0); WBC, URINE AUTO 0 /HPF (0-3)
== END ==
LOC: M PLALAB 14:34
PROVIDERS: ATTEND Physician Assistant Medical
DX: N32.81 Overactive bladder (principal); I10 Essential (primary) hypertension; D63.8 Anemia in other chronic diseases classified elsewhere

== ENCOUNTER → 2023-03-17 | Outpatient (CLI) | payer MEDICARE, MEDICAID | LOC: M WHC 13:55 | PROVIDERS: ATTEND Physician Assistant Medical | DX: M81.0 Age-related osteoporosis without current pathological fracture (principal) ==

== ENCOUNTER → 2023-06-25 | Outpatient (CLI) | payer MEDICARE, MEDICAID ==
[~2023-06-25] MED LIST changes: +HYDR-161 PO; -HYDR10TAB PO
[2023-06-25 15:51] LABS: BASO % 0.5 % (0.0-1.0); EOS # 0.1 10^3/uL (0.0-0.5); EOS % 1.6 % (0.0-3.0); HEMATOCRIT 40.1 % (36.0-47.0); HEMOGLOBIN 12.4 g/dl (12.0-15.5); LYMPH % 23.4 % (24.0-44.0); MEAN CORPUSCULAR HEMOGLOBIN 28.5 pg (27.0-33.0); MEAN CORPUSCULAR HGB CONC 30.9 g/dl (32.0-36.5); MEAN CORPUSCULAR VOLUME 92.2 fl (80.0-96.0); MONO # 0.7 10^3/uL (0.0-0.8); MONO % 7.7 % (2.0-8.0); NEUTROPHILS # 5.6 10^3/uL (1.5-8.5); NEUTROPHILS % 66.3 % (36.0-66.0); PLATELET COUNT, AUTOMATED 289 10^3/uL (150-450); RED BLOOD COUNT 4.35 10^6/uL (4.00-5.40); WHITE BLOOD COUNT 8.5 10^3/uL (4.0-10.0)
[2023-06-25 16:14] LABS: HEMOGLOBIN A1c 5.5 % (4.0-6.0)
[2023-06-25 16:22] LABS: ALBUMIN 3.5 G/DL (3.2-5.2); BILIRUBIN,TOTAL 0.2 MG/DL (0.3-1.2); CALCIUM LEVEL 10.4 MG/DL (8.3-10.6); CREATININE FOR GFR 1.1 MG/DL (0.55-1.30); FREE T4 1.06 NG/DL (0.89-1.76); POTASSIUM SERUM 4.3 MMOL/L (3.5-5.1); PTH INTACT 113.1 PG/ML (18.5-88.0); TOTAL PROTEIN 7.6 G/DL (5.7-8.2)
[2023-06-25 16:23] LABS: FERRITIN 73.5 NG/ML (7.3-270.7); THYROID STIMULATING HORMONE 2.481 uIU/ML (0.55-4.78)
== END ==
LOC: M PLALAB 12:21
PROVIDERS: ATTEND Physician Assistant Medical
DX: I10 Essential (primary) hypertension (principal); E55.9 Vitamin D deficiency, unspecified; E78.5 Hyperlipidemia, unspecified; E03.9 Hypothyroidism, unspecified; E66.09 Other obesity due to excess calories; Z79.899 Other long term (current) drug therapy; Z86.39 Personal history of other endocrine, nutritional and metabolic disease

== ENCOUNTER → 2023-07-15 | Outpatient (CLI) | payer MEDICARE, MEDICAID | LOC: M WHC 12:54 | PROVIDERS: ATTEND Physician Assistant Medical | DX: Z12.31 Encounter for screening mammogram for malignant neoplasm of breast (principal) ==

== ENCOUNTER → 2023-07-17 | Outpatient (REF) | payer MEDICARE, MEDICAID ==
[~2023-07-17] MED LIST changes: -SALI0.6530 NARES; +SODI88SP NARES
== END ==
LOC: M SFHCPLAZ 15:18
PROVIDERS: ATTEND Physician Assistant Medical
DX: D50.9 Iron deficiency anemia, unspecified (principal)

== ENCOUNTER → 2023-07-23 | Outpatient (REF) | payer MEDICARE, MEDICAID ==
[2023-07-23 16:22] LABS: APPEARANCE, URINE CLEAR (CLEAR); BACTERIA, URINE AUTO NEGATIVE (NEGATIVE); BILIRUBIN, URINE AUTO NEGATIVE (NEGATIVE); BLOOD, URINE BLOOD NEGATIVE (NEGATIVE); COLOR, URINE YELLOW (YELLOW); GLUCOSE, URINE (UA) AUTO NEGATIVE (NEGATIVE); KETONE, URINE AUTO NEGATIVE (NEGATIVE); LEUKOCYTE ESTERASE, URINE AUTO NEGATIVE (NEGATIVE); NITRITE, URINE AUTO NEGATIVE (NEGATIVE); PROTEIN, URINE AUTO NEGATIVE (NEGATIVE); RBC, URINE AUTO 0 /HPF (0-3); SPECIFIC GRAVITY URINE AUTO 1.009 (1.002-1.035); SQUAMOUS EPITHELIAL CELL UR AU 1 /HPF (0-6); UROBILINOGEN, URINE AUTO 0.2 mg/dL (0.0-2.0); WBC, URINE AUTO 2 /HPF (0-3)
== END ==
LOC: M SFHCPLAZ 15:28
PROVIDERS: ATTEND Physician Assistant Medical
DX: N32.81 Overactive bladder (principal)

== ENCOUNTER → 2023-11-23 | Outpatient (REF) | payer MEDICARE, MEDICAID ==
[~2023-11-23] MED LIST changes: +BUPR-597 PO; -BUPR300T92 PO; -KLON1TAB PO; +KLON1TAB13 PO; -ROSU10TA6 PO; +ROSU10TA61 PO
[2023-11-23 12:04] LABS: BASO % 0.3 % (0.0-1.0); EOS # 0.1 10^3/uL (0.0-0.5); EOS % 2.1 % (0.0-3.0); HEMATOCRIT 36.5 % (36.0-47.0); HEMOGLOBIN 11.6 g/dl (12.0-15.5); LYMPH # 1.4 10^3/uL (1.5-5.0); LYMPH % 23.7 % (24.0-44.0); MEAN CORPUSCULAR HEMOGLOBIN 29.4 pg (27.0-33.0); MEAN CORPUSCULAR HGB CONC 31.8 g/dl (32.0-36.5); MEAN CORPUSCULAR VOLUME 92.6 fl (80.0-96.0); MONO # 0.5 10^3/uL (0.0-0.8); MONO % 8.3 % (2.0-8.0); NEUTROPHILS # 3.8 10^3/uL (1.5-8.5); NEUTROPHILS % 65.3 % (36.0-66.0); PLATELET COUNT, AUTOMATED 234 10^3/uL (150-450); RED BLOOD COUNT 3.94 10^6/uL (4.00-5.40); WHITE BLOOD COUNT 5.8 10^3/uL (4.0-10.0)
== END ==
PROVIDERS: ATTEND Physician Assistant Medical
DX: D64.9 Anemia, unspecified (principal)

== ENCOUNTER → 2023-12-08 | Outpatient (CLI) | payer MEDICARE, MEDICAID | LOC: M WHC 11:34 | PROVIDERS: ATTEND Physician Assistant Medical | DX: Z12.31 Encounter for screening mammogram for malignant neoplasm of breast (principal) ==

== ENCOUNTER → 2023-12-22 | Outpatient (CLI) | payer MEDICARE, MEDICAID | LOC: M RAD 09:44 | PROVIDERS: ATTEND Surgery | DX: I71.40 Abdominal aortic aneurysm, without rupture, unspecified (principal) ==

== ENCOUNTER → 2024-02-24 | Outpatient (REF) | payer MEDICARE, MEDICAID ==
[2024-02-24 11:24] LABS: CHOLESTEROL RISK RATIO 3.9 (<5); HDL CHOLESTEROL 40.7 MG/DL (>40); LDL CHOLESTEROL 88.7 MG/DL (<100); NON-HDL-C 118.3 MG/DL; PTH INTACT 84.9 PG/ML (18.5-88.0)
[2024-02-24 11:25] LABS: FREE T4 1.32 NG/DL (0.89-1.76); THYROID STIMULATING HORMONE 2.513 uIU/ML (0.55-4.78); TOTAL 25(OH) VITAMIN D 69.4 NG/ML (20.0-100.0)
== END ==
PROVIDERS: ATTEND Physician Assistant Medical
DX: E78.5 Hyperlipidemia, unspecified (principal); E03.9 Hypothyroidism, unspecified; E55.9 Vitamin D deficiency, unspecified; E21.3 Hyperparathyroidism, unspecified

== ENCOUNTER 2024-02-26 11:07 | Emergency (ER) | payer MEDICARE, MEDICAID ==
[~2024-02-26] VITALS: Ht 165.1 cm; Wt 93.2 kg
[2024-02-26 14:28] VITALS: BP 136/75; TEMP 96.9; O2SAT 96
== END 2024-02-26 15:07 | disposition home or self-care (01) ==
LOC: M ED 11:07 → EDBD 11:07 → M ED 15:07
DX: S70.02XA Contusion of left hip, initial encounter (principal); Y92.9 Unspecified place or not applicable; Y93.9 Activity, unspecified; Y99.9 Unspecified external cause status; W01.0XXA Fall on same level from slipping, tripping and stumbling without subsequent striking against object, initial encounter; I10 Essential (primary) hypertension; F17.210 Nicotine dependence, cigarettes, uncomplicated; Z88.8 Allergy status to other drugs, medicaments and biological substances; Z88.0 Allergy status to penicillin; Z91.040 Latex allergy status; Z79.1 Long term (current) use of non-steroidal anti-inflammatories (NSAID); Z79.51 Long term (current) use of inhaled steroids; Z79.899 Other long term (current) drug therapy

== ENCOUNTER → 2024-03-08 | Outpatient (CLI) | payer MEDICARE ==
[2024-03-08 18:11] LABS: BASO % 0.5 % (0.0-1.0); EOS # 0.2 10^3/uL (0.0-0.5); EOS % 2.3 % (0.0-3.0); HEMATOCRIT 39.8 % (36.0-47.0); HEMOGLOBIN 12.6 g/dl (12.0-15.5); LYMPH # 2.2 10^3/uL (1.5-5.0); LYMPH % 27.2 % (24.0-44.0); MEAN CORPUSCULAR HEMOGLOBIN 29.6 pg (27.0-33.0); MEAN CORPUSCULAR HGB CONC 31.7 g/dl (32.0-36.5); MEAN CORPUSCULAR VOLUME 93.6 fl (80.0-96.0); MONO # 0.7 10^3/uL (0.0-0.8); NEUTROPHILS % 61.6 % (36.0-66.0); PLATELET COUNT, AUTOMATED 302 10^3/uL (150-450); RED BLOOD COUNT 4.25 10^6/uL (4.00-5.40); WHITE BLOOD COUNT 8.1 10^3/uL (4.0-10.0)
[2024-03-08 18:54] LABS: ALBUMIN 3.6 G/DL (3.2-5.2); BILIRUBIN,TOTAL 0.3 MG/DL (0.3-1.2); CALCIUM LEVEL 10.6 MG/DL (8.3-10.6); CREATININE FOR GFR 1.21 MG/DL (0.55-1.30); FERRITIN 116.5 NG/ML (7.3-270.7); GLOMERULAR FILTRATION RATE 46.6 (>39); POTASSIUM SERUM 4.4 MMOL/L (3.5-5.1); TOTAL PROTEIN 7.8 G/DL (5.7-8.2)
== END ==
LOC: M PLALAB 15:02
PROVIDERS: ATTEND Physician Assistant Medical
DX: E21.3 Hyperparathyroidism, unspecified (principal); I10 Essential (primary) hypertension; E87.5 Hyperkalemia; E78.5 Hyperlipidemia, unspecified; D50.9 Iron deficiency anemia, unspecified

== ENCOUNTER → 2024-03-08 | Outpatient (CLI) | payer MEDICARE | LOC: M PLAIMG 15:00 | PROVIDERS: ATTEND Physician Assistant | DX: M47.816 Spondylosis without myelopathy or radiculopathy, lumbar region (principal) ==

== ENCOUNTER → 2024-06-27 | Outpatient (CLI) | payer MEDICARE, MEDICAID ==
[~2024-06-27] MED LIST changes: +COLA100C5 PO; +LORA-1041 PO; +PERF3DRO OU; +VENL37.598 PO
[2024-06-27 16:17] LABS: BASO % 0.5 % (0.0-1.0); EOS # 0.2 10^3/uL (0.0-0.5); EOS % 2.3 % (0.0-3.0); HEMATOCRIT 41.1 % (36.0-47.0); HEMOGLOBIN 12.8 g/dl (12.0-15.5); LYMPH # 2.2 10^3/uL (1.5-5.0); LYMPH % 25.8 % (24.0-44.0); MEAN CORPUSCULAR HEMOGLOBIN 29.5 pg (27.0-33.0); MEAN CORPUSCULAR HGB CONC 31.1 g/dl (32.0-36.5); MEAN CORPUSCULAR VOLUME 94.7 fl (80.0-96.0); MONO # 0.6 10^3/uL (0.0-0.8); MONO % 7.3 % (2.0-8.0); NEUTROPHILS # 5.5 10^3/uL (1.5-8.5); NEUTROPHILS % 63.9 % (36.0-66.0); PLATELET COUNT, AUTOMATED 329 10^3/uL (150-450); RED BLOOD COUNT 4.34 10^6/uL (4.00-5.40); WHITE BLOOD COUNT 8.6 10^3/uL (4.0-10.0)
[2024-06-27 16:38] LABS: ALBUMIN 3.5 G/DL (3.2-5.2); BILIRUBIN,TOTAL 0.2 MG/DL (0.3-1.2); CALCIUM LEVEL 10.8 MG/DL (8.3-10.6); CREATININE FOR GFR 1.17 MG/DL (0.55-1.30); FERRITIN 112.8 NG/ML (7.3-270.7); GLOMERULAR FILTRATION RATE 48.3 (>39); POTASSIUM SERUM 4.8 MMOL/L (3.5-5.1); PTH INTACT 91.5 PG/ML (18.5-88.0); TOTAL PROTEIN 8.3 G/DL (5.7-8.2)
== END ==
LOC: M PLALAB 14:26
PROVIDERS: ATTEND Physician Assistant Medical
DX: I10 Essential (primary) hypertension (principal); N32.81 Overactive bladder; D50.9 Iron deficiency anemia, unspecified; E21.3 Hyperparathyroidism, unspecified; E55.9 Vitamin D deficiency, unspecified

== ENCOUNTER 2024-07-22 06:01 | Day surgery (SDC) | payer MEDICARE ==
[~2024-07-22] VITALS: Ht 167.6 cm; Wt 92.6 kg
[2024-07-22] MEDS ORDERED: LR 1,000 ML IV SCH (06:25)
[2024-07-22] MEDS ORDERED: ACETAMINOPHEN 1000MG/100ML IV BAG As Ordered ONE (06:38)
[2024-07-22] MEDS ORDERED: propofoL 200 MG/20 ML VIAL As Ordered ONE (06:39)
[2024-07-22] MEDS ORDERED: LIDOCAINE 2% 100MG/5ML SDV (FOR ANES.) As Ordered ONE (06:39)
[2024-07-22] MEDS ORDERED: ONDANSETRON 4MG 2ML VIAL As Ordered ONE (06:39)
[2024-07-22] MEDS ORDERED: fentaNYL 100 MCG/2 ML INJECTION As Ordered ONE (06:41)
[2024-07-22] MEDS ORDERED: ROCURONIUM BROMIDE 50MG/5ML VIAL As Ordered ONE (06:47)
[2024-07-22] MEDS ORDERED: SUGAMMADEX SODIUM 500 MG/5 ML VIAL (BRIDION) As Ordered ONE (06:47)
[2024-07-22] MEDS: CelecoXIB 400 MG CAP PO ONE (07:25)
[2024-07-22] MEDS: LIDOCAINE 1% SDV 30ML VIAL As Ordered ONE (07:38)
[2024-07-22] MEDS: ceFAZolin SOD 2 GM in IV 1 EA IV ONE (07:50)
[2024-07-22 10:50] VITALS: BP 104/51; TEMP 96.7; O2SAT 94
== END 2024-07-22 11:39 | disposition home or self-care (01) ==
LOC: M SDC 06:01
PROVIDERS: ATTEND Surgery
DX: D17.1 Benign lipomatous neoplasm of skin and subcutaneous tissue of trunk (principal); N28.9 Disorder of kidney and ureter, unspecified; Z88.0 Allergy status to penicillin; Z88.8 Allergy status to other drugs, medicaments and biological substances; Z91.040 Latex allergy status; Z79.899 Other long term (current) drug therapy; F17.290 Nicotine dependence, other tobacco product, uncomplicated
CPT/HCPCS: 11406; 12032; 88304; 93005; J0131; J0665; J0690; J2405; J3010

== ENCOUNTER → 2024-12-19 | Outpatient (REF) | payer MEDICARE, MEDICAID ==
[~2024-12-19] MED LIST changes: -BUPR-597 PO; +BUPR-766 PO; -PRAV40TA2 PO; +PRAV40TA85 PO; -PRAV80TA2 PO; +PRAV80TA75 PO; -RA S8.6T3 PO; +SENN18TA PO
[2024-12-19 08:53] LABS: BASO # 0.0 10^3/uL (0.0-0.2); BASO % 0.3 % (0.0-1.0); EOS # 0.2 10^3/uL (0.0-0.5); EOS % 2.7 % (0.0-3.0); LYMPH # 2.0 10^3/uL (1.5-5.0); LYMPH % 34.5 % (24.0-44.0); MONO # 0.5 10^3/uL (0.0-0.8); MONO % 7.9 % (2.0-8.0); NEUTROPHILS # 3.2 10^3/uL (1.5-8.5); NEUTROPHILS % 54.4 % (36.0-66.0); PLATELET COUNT, AUTOMATED 227 10^3/uL (150-450)
[2024-12-19 09:24] LABS: ALT/SGPT 13.0 U/L (7.0-40); AST/SGOT 17.0 U/L (<34); CALCIUM LEVEL 9.4 MG/DL (8.3-10.6); CARBON DIOXIDE LEVEL 31.0 MMOL/L (20-31); CHLORIDE LEVEL 103.0 MMOL/L (98-107); CPK CREATINE PHOSPHOKINASE 28.0 U/L (34-145); CREATININE FOR GFR 1.22 MG/DL (0.55-1.30); GLOMERULAR FILTRATION RATE 46.9 (>39); IRON (FE) 49.0 UG/DL (50-170); POTASSIUM SERUM 4.2 MMOL/L (3.5-5.1); PTH INTACT 93.5 PG/ML (18.5-88.0); SODIUM LEVEL 142.0 MMOL/L (136-145)
[2024-12-19 09:26] LABS: FREE T4 1.01 NG/DL (0.89-1.76); TOTAL 25(OH) VITAMIN D 68.6 NG/ML (20.0-100.0)
== END ==
PROVIDERS: ATTEND Physician Assistant Medical
DX: I10 Essential (primary) hypertension (principal); E87.5 Hyperkalemia; E78.5 Hyperlipidemia, unspecified; D50.9 Iron deficiency anemia, unspecified; E21.3 Hyperparathyroidism, unspecified; D55.9 Anemia due to enzyme disorder, unspecified; E03.9 Hypothyroidism, unspecified

== ENCOUNTER → 2025-01-02 | Outpatient (REF) | payer MEDICARE, MEDICAID ==
[2025-01-02 11:23] LABS: ALT/SGPT 13.0 U/L (7.0-40); AST/SGOT 19.0 U/L (<34); CALCIUM LEVEL 9.6 MG/DL (8.3-10.6); CARBON DIOXIDE LEVEL 30.0 MMOL/L (20-31); CHLORIDE LEVEL 102.0 MMOL/L (98-107); CREATININE FOR GFR 1.1 MG/DL (0.55-1.30); GLOMERULAR FILTRATION RATE 53.1 (>39); POTASSIUM SERUM 3.6 MMOL/L (3.5-5.1); SODIUM LEVEL 141.0 MMOL/L (136-145)
== END ==
PROVIDERS: ATTEND Physician Assistant Medical
DX: I10 Essential (primary) hypertension (principal); E78.5 Hyperlipidemia, unspecified

== ENCOUNTER → 2025-01-11 | Outpatient (CLI) | payer MEDICARE, MEDICAID | LOC: M RAD 09:37 | PROVIDERS: ATTEND Surgery | DX: I71.40 Abdominal aortic aneurysm, without rupture, unspecified (principal) ==

== ENCOUNTER → 2025-02-13 | Outpatient (REF) | payer MEDICARE, MEDICAID ==
[2025-02-13 11:39] LABS: BASO # 0.0 10^3/uL (0.0-0.2); BASO % 0.6 % (0.0-1.0); EOS # 0.1 10^3/uL (0.0-0.5); EOS % 1.6 % (0.0-3.0); LYMPH # 1.6 10^3/uL (1.5-5.0); LYMPH % 22.6 % (24.0-44.0); MONO # 0.5 10^3/uL (0.0-0.8); MONO % 7.4 % (2.0-8.0); NEUTROPHILS # 4.7 10^3/uL (1.5-8.5); NEUTROPHILS % 67.5 % (36.0-66.0); PLATELET COUNT, AUTOMATED 279 10^3/uL (150-450)
[2025-02-13 12:17] LABS: IRON (FE) 49.0 UG/DL (50-170)
[2025-02-13 12:18] LABS: FREE T4 1.19 NG/DL (0.89-1.76)
== END ==
PROVIDERS: ATTEND Physician Assistant Medical
DX: D50.9 Iron deficiency anemia, unspecified (principal); E03.9 Hypothyroidism, unspecified

== ENCOUNTER → 2025-02-21 | Outpatient (CLI) | payer MEDICARE, MEDICAID | LOC: M PLALAB 15:32 → M PLAIMG 15:32 | PROVIDERS: ATTEND Physician Assistant Medical | DX: M25.562 Pain in left knee (principal); M25.662 Stiffness of left knee, not elsewhere classified ==

== ENCOUNTER → 2025-02-24 | Outpatient (CLI) | payer MEDICARE, MEDICAID ==
[2025-02-24 18:46] LABS: BASO # 0.1 10^3/uL (0.0-0.2); BASO % 0.6 % (0.0-1.0); EOS # 0.1 10^3/uL (0.0-0.5); EOS % 1.5 % (0.0-3.0); LYMPH # 2.0 10^3/uL (1.5-5.0); LYMPH % 25.5 % (24.0-44.0); MONO # 0.6 10^3/uL (0.0-0.8); MONO % 8.0 % (2.0-8.0); NEUTROPHILS # 5.0 10^3/uL (1.5-8.5); NEUTROPHILS % 64.0 % (36.0-66.0); PLATELET COUNT, AUTOMATED 304 10^3/uL (150-450)
[2025-02-24 18:53] LABS: ERYTHROCYTE SEDIMENTATION RATE 69 mm/hr (0-30)
[2025-02-24 19:05] LABS: C REACTIVE PROTEIN QUANTITATIV 0.55 MG/DL (<1.0)
[2025-02-24 19:10] LABS: CALCIUM LEVEL 10.7 MG/DL (8.3-10.6); CARBON DIOXIDE LEVEL 30.0 MMOL/L (20-31); CHLORIDE LEVEL 100.0 MMOL/L (98-107); CREATININE FOR GFR 1.17 MG/DL (0.55-1.30); GLOMERULAR FILTRATION RATE 49.3 (>39); POTASSIUM SERUM 4.8 MMOL/L (3.5-5.1); SODIUM LEVEL 139.0 MMOL/L (136-145)
== END ==
LOC: M PLALAB 14:11
PROVIDERS: ATTEND Student in an Organized Health Care Education/Training Program
DX: M25.562 Pain in left knee (principal)

== ENCOUNTER → 2025-03-03 | Outpatient (CLI) | payer MEDICARE, MEDICAID ==
[~2025-03-03] MED LIST changes: +PROHANCE 279.3MG/ML 15ML VIAL As Ordered ONE; +PROHANCE 279.3MG/ML 5ML VIAL As Ordered ONE
== END ==
LOC: M RAD 16:00
PROVIDERS: ATTEND Student in an Organized Health Care Education/Training Program
DX: M22.42 Chondromalacia patellae, left knee (principal); M25.462 Effusion, left knee; M77.8 Other enthesopathies, not elsewhere classified; M23.304 Other meniscus derangements, unspecified medial meniscus, left knee; M23.301 Other meniscus derangements, unspecified lateral meniscus, left knee; S83.92XA Sprain of unspecified site of left knee, initial encounter; X58.XXXA Exposure to other specified factors, initial encounter; Y92.89 Other specified places as the place of occurrence of the external cause; M70.52 Other bursitis of knee, left knee
CPT/HCPCS: 73723; A9576

== ENCOUNTER → 2025-03-29 | Outpatient (REF) | payer MEDICARE, MEDICAID ==
[~2025-03-29] MED LIST changes: -PROHANCE 279.3MG/ML 15ML VIAL As Ordered ONE; -PROHANCE 279.3MG/ML 5ML VIAL As Ordered ONE; -ROSU10TA61 PO; +ROSU10TA90 PO
[2025-03-29 12:33] LABS: FREE T4 1.04 NG/DL (0.89-1.76)
== END ==
PROVIDERS: ATTEND Physician Assistant Medical
DX: D50.9 Iron deficiency anemia, unspecified (principal); E03.9 Hypothyroidism, unspecified

== ENCOUNTER → 2025-06-07 | Outpatient (REF) | payer MEDICARE, MEDICAID ==
[~2025-06-07] MED LIST changes: -SODI88SP NARES; +SODI88SP7 NARES
== END ==
LOC: M LAB REF 16:19
PROVIDERS: ATTEND Neuromusculoskeletal Medicine, Sports Medicine
DX: M17.12 Unilateral primary osteoarthritis, left knee (principal)